=== PATIENT | female | born 1975 | race Two or more races ===

== ENCOUNTER 2020-02-28 13:23 | Emergency (ER) | payer OTHER, SELFPAY ==
[2020-02-28 13:49] VITALS: BP 212/102; PULSE 99; RESP 17; TEMP 37.2; O2SAT 98; BMI 42.5
--- NOTE | 2020-02-28 13:51 | XR_ITS ---
EXAMINATION: XR CHEST CLINICAL INFORMATION: Chest wall pain COMPARISON: Chest radiographs 11/09/2019, 10/27/2018 TECHNIQUE: Portable PA view of the chest was obtained. FINDINGS: The lungs are clear. There is no pneumothorax, airspace consolidation, pleural reaction, or effusion. The heart is normal in size. The hilar and bony structures are unremarkable. XR/XR chest 1V IMPRESSION: Unremarkable examination.
--- NOTE | 2020-02-28 13:51 | ECG_ITS ---
Test Reason : CP Blood Pressure : / mmHG Vent. Rate : 089 BPM Atrial Rate : 089 BPM P-R Int : 164 ms QRS Dur : 090 ms QT Int : 378 ms P-R-T Axes : 018 012 064 degrees QTc Int : 459 ms Normal sinus rhythm Nonspecific T wave abnormality Abnormal ECG When compared with ECG of 09-NOV-2019 10:32, No significant change was found Referred By: South Richardson Electronically Signed By:AUTUMN BAEZA MD
[2020-02-28 14:41] LABS: Basophils Percent Auto 0.4 % (0-2); Eosinophils Absolute Auto 0.1 X10*3/uL (0.0-0.4); Eosinophils Percent Auto 0.8 % (0-4); Hematocrit 40.7 % (37-47); Hemoglobin 12.7 g/dl (12.0-16.0); Imm Gran Abs Auto 0.03 X10*3/uL (0.00-0.03); Imm Gran Pct Auto 0.4 % (0.0-0.4); Lymphocytes Absolute Auto 2.1 X10*3/uL (1.2-4.9); Lymphocytes Percent Auto 29.4 % (20-40); MANUAL DIFF FLAG NO; Mean Corpuscular HGB Conc 31.2 g/dl (31.0-35.0); Mean Corpuscular Hemoglobin 27.8 pg (27.0-33.0); Mean Corpuscular Volume 89.1 fL (80-98); Mean Platelet Volume 11.5 fL (9.4-12.3); Monocytes Absolute Auto 0.5 X10*3/uL (0.1-1.2); Monocytes Percent Auto 7.2 % (2-11); Neutrophils Absolute Auto 4.5 X10*3/uL (2.0-8.3); Neutrophils Percent Auto 61.8 % (45-73); Platelet Count 268 X10*3/uL (160-400); Red Blood Count 4.57 X10*6/uL (4.20-5.50); Red Cell Distribution Width 14.7 % (11.0-16.0); White Blood Count 7.3 X10*3/uL (4.8-10.8)
[2020-02-28 14:48] LABS: Prothrombin Time 12.2 SEC (10.8-13.0)
[2020-02-28 14:51] LABS: Partial Thromboplastin Time 35.5 SEC (24.1-38.0)
[2020-02-28 15:01] LABS: Glucose Urine UA NEG (NEG); Leukocyte Esterase Urine 1+ (NEG); Nitrite Urine NEG (NEG); Specific Gravity - Urine 1.025 (1.005-1.025); Urine Blood 1+ (NEG); Urine Ketones NEG (NEG); Urine Protein 1+ MG/DL (NEG-TRACE)
[2020-02-28 15:02] LABS: Appearance Urine CLOUDY; Color Urine YELLOW
[2020-02-28 15:10] LABS: Bacteria Urine 1+ /LPF; Squamous Epithelial Cell Urine 2+ /LPF
[2020-02-28 15:10] LABS: Troponin-I High Sensitivity < 3.5 ng/L (<3.5-17.0)
[2020-02-28 15:12] LABS: Alanine Aminotransferase 21 U/L (0-31); Albumin Level 4.3 g/dL (3.5-5.0); Alkaline Phosphatase 81 U/L (39-117); Anion Gap 13 (12-20); Aspartate Amino Transferase 16 U/L (5-31); Bilirubin Total 0.5 mg/dL (0.0-1.0); Blood Urea Nitrogen 9 mg/dL (9-16); Calcium 8.7 mg/dL (8.4-10.2); Carbon Dioxide 24 mmol/L (22-29); Chloride 106 mmol/L (96-108); Creatinine Clr Calc Pharmacy 123.6; Estimated Glomerular Filt Rate > 60; Glucose Random 91 mg/dL (60-115); Sodium 139 mmol/L (135-145); Total Protein 7.9 g/dL (6.5-8.0)
--- NOTE | 2020-02-28 16:13 | ED.CHESTPAIN ---
HPI - Chest Pain General Chief Complaint: Chest Pain Stated Complaint: chest pain Time Seen by Provider: 02/28/20 13:51 Source: patient Mode of arrival: ambulatory Limitations: no limitations History of Present Illness HPI narrative: 44-year-old female who denies any significant past medical history reports occasional cough /congestion during sees no allergies otherwise not currently taking any medications presenting today with complaint of states started 2 days ago with some runny nose and body aches family member with similar symptoms- today with bodyaches she also has chest pin that is described as achy that waxes and wanes. no recent travel, she has history of tubal ligation no concern for , no lower extremity swelling or pain. No history of DVT or PE. Hemodynamically stable upon arrival pulse ox of 100%. MD complaint: chest heaviness Onset (ago): day(s) (1) Timing of current episode: episodic Prior episodes: Yes Onset: during rest Pain radiation: none Severity: mild Quality: aching Exacerbating factors: other (cough/ movement ) Context: recent illness Treatment prior to arrival: none Risk Factors Coronary artery disease risk factors: none Related Data On Oral Contraceptives: No Previous Rx's Medication Instructions Recorded naproxen 500 mg PO BID PRN #14 tab 02/28/20 Allergies Allergy/AdvReac Type Severity Reaction Status Date / Time trazodone [TRAZODONE] Allergy Intermediate OVER Verified 02/28/20 13:51 SEDATION, tachycardia, tachycardia Review of Systems Review of Systems: Constitutional: No Weight loss, No Fever, No Chills, No Night Sweats, No Fatigue, No Malaise ENT/Mouth: No Hearing loss, No Ear Pain, No Nasal Congestion, No Sinus Pain, No Hoarseness, No sore throat, No Rhinorrhea, No Swallowing Difficulty Eyes: No Eye Pain, No Swelling, No Redness, No Foreign Body, No Discharge, No Vision Changes Cardiovascular: No Chest Pain, No SOB, No Dyspnea on Exertion, No Orthopnea, No Edema, No Palpitations Respiratory: No Cough, No Sputum, No Wheezing, No Smoke Exposure, No Dyspnea Gastrointestinal: No Nausea, No Vomiting, No Diarrhea, No Constipation, No abdominal Pain, No Hematochezia, No Melena Genitourinary: no irregular bleeding, No Dysuria, No Urinary Frequency, No Hematuria, No Urinary Incontinence, No Urgency, No Flank Pain, No Urinary Flow Changes, No Hesitancy Musculoskeletal: No joint pain, No Myalgias, No Joint Swelling Skin: No Skin Lesions, No rash Neuro: No Weakness, No Numbness, No Paresthesias, No Loss of Consciousness, No Dizziness, No Headache Psych: No Anxiety/Panic, No Depression, No SI/HI/AH/VH, No Social Issues Heme/Lymph: No Bruising, No Bleeding,No Lymphadenopathy Endocrine: No Polyuria, No Polydipsia, No Temperature Intolerance Yes all other systems are reviewed and are negative [facility] Past Medical History Attestation statement: The following information was validated with the patient. Social History Social History Advance Directives: No Advance Directives Information Provided: No Physical Exam Vital Signs: Vital Signs: Last Vital Signs Temp 99.0 F 02/28/20 13:49 Pulse 99 02/28/20 13:49 Resp 17 02/28/20 13:49 BP 212/102 H 02/28/20 13:49 Pulse Ox 98 02/28/20 13:49 Body Mass Index 42.5 Reviewed Const: General: cooperative and healthy appearing; No acute distress or intoxicated appearing Nutritional Appearance: average body habitus Orientation/consciousness: patient oriented x3 HENMT: Head: Yes normal to inspection Ears: hearing grossly normal bilaterally Eyes: General: appearance normal, both eyes and all related structures Visual Leary: normal visual leary by confrontation Neck: Neck: Yes normal visual inspection, No positive Brudzinski's sign, No positive Kernig's sign and No tender Thyroid: Thyroid normal Chest: Chest palpation & inspection: normal inspection of the chest Resp: Effort & Inspection: normal respiratory effort Cardio: Jugular venous distension: no JVD Rhythm: regular rhythm Heart sounds: S1 normal heart sound present and S2 normal heart sound present GI: Inspection: Yes normal to inspection Percussion: Yes normal to percussion Auscultation: normal bowel sounds : General: Yes no CVA tenderness Back/Spine/Pelvis: Back: no CVA tenderness Skin: General skin exam: no rashes or lesions noted Neuro: General: patient oriented x3 Extrem: General: Yes normal to inspection MDM - Chest Pain MDM Narrative Medical decision making narrative: Labs such workup overall unremarkable. COVID-19 pending. Will discharge with clear precaution return follow-up instructions. Stable for discharge. Differential Diagnosis Differential diagnosis: Likely atypical chest pain, costochondritis and chest pain; Unlikely fracture of rib, pneumothorax, stable angina, unstable angina pectoris, st elevation myocardial infarction and biliary colic Medical Records Data Attestation: I reviewed the patient's medical records. Lab Data Attestation: I reviewed the patient's lab results. Result diagrams: 02/28/20 14:34 02/28/20 14:34 Labs: Lab Results 02/28/20 02/28/20 02/28/20 Range/Units 14:34 14:34 14:34 WBC 7.3 (4.8-10.8) X10*3/uL RBC 4.57 (4.20-5.50) X10*6/uL Hgb 12.7 (12.0-16.0) g/dl Hct 40.7 (37-47) % MCV 89.1 (80-98) fL MCH 27.8 (27.0-33.0) pg MCHC 31.2 (31.0-35.0) g/dl RDW 14.7 (11.0-16.0) % Plt Count 268 (160-400) X10*3/uL MPV 11.5 (9.4-12.3) fL Immature Gran % (Auto) 0.4 (0.0-0.4) % Neut % (Auto) 61.8 (45-73) % Lymph % (Auto) 29.4 (20-40) % [place] % (Auto) 7.2 (2-11) % Eos % (Auto) 0.8 (0-4) % Baso % (Auto) 0.4 (0-2) % Lymph # (Auto) 2.1 (1.2-4.9) X10*3/uL [place] # (Auto) 0.5 (0.1-1.2) X10*3/uL Eos # (Auto) 0.1 (0.0-0.4) X10*3/uL Baso # (Auto) 0.0 (0.0-0.2) X10*3/uL Abs Immat Gran (auto) 0.03 (0.00-0.03) X10*3/uL Absolute Neuts (auto) 4.5 (2.0-8.3) X10*3/uL Absolute Nucleated RBC 0.000 (0.0-0.012) X10*3/uL Nucleated RBC % (auto) 0.0 (0.0-0.2) /100WBC PT (10.8-13.0) SEC INR (0.9-1.1) APTT (24.1-38.0) SEC Sodium 139 (135-145) mmol/L Potassium 4.0 (3.3-5.1) mmol/l Chloride 106 (96-108) mmol/L Carbon Dioxide 24 (22-29) mmol/L Anion Gap 13 (12-20) BUN 9 (9-16) mg/dL Creatinine 0.68 (0.5-1.4) mg/dL Estim Creat Clear Calc 123.6 Estimated GFR > 60 Random Glucose 91 (60-115) mg/dL Calcium 8.7 (8.4-10.2) mg/dL Total Bilirubin 0.5 (0.0-1.0) mg/dL AST 16 (5-31) U/L ALT 21 (0-31) U/L Alkaline Phosphatase 81 (39-117) U/L Troponin I High Sens < 3.5 (<3.5-17.0) ng/L Total Protein 7.9 (6.5-8.0) g/dL Albumin 4.3 (3.5-5.0) g/dL Urine Color Urine Appearance Urine pH (5.0-8.0) Ur Specific [place] (1.005-1.025) Urine Protein (NEG-TRACE) MG/DL Urine Glucose (UA) (NEG) MG/DL Urine Ketones (NEG) MG/DL Urine Blood (NEG) Urine Nitrite (NEG) Ur Leukocyte Esterase (NEG) Urine RBC (0) /HPF Urine WBC (0-4) /HPF Ur Squamous Epith Cells /LPF Urine Bacteria /LPF 02/28/20 02/28/20 Range/Units 14:34 14:54 WBC (4.8-10.8) X10*3/uL RBC (4.20-5.50) X10*6/uL Hgb (12.0-16.0) g/dl Hct (37-47) % MCV (80-98) fL MCH (27.0-33.0) pg MCHC (31.0-35.0) g/dl RDW (11.0-16.0) % Plt Count (160-400) X10*3/uL MPV (9.4-12.3) fL Immature Gran % (Auto) (0.0-0.4) % Neut % (Auto) (45-73) % Lymph % (Auto) (20-40) % [place] % (Auto) (2-11) % Eos % (Auto) (0-4) % Baso % (Auto) (0-2) % Lymph # (Auto) (1.2-4.9) X10*3/uL [place] # (Auto) (0.1-1.2) X10*3/uL Eos # (Auto) (0.0-0.4) X10*3/uL Baso # (Auto) (0.0-0.2) X10*3/uL Abs Immat Gran (auto) (0.00-0.03) X10*3/uL Absolute Neuts (auto) (2.0-8.3) X10*3/uL Absolute Nucleated RBC (0.0-0.012) X10*3/uL Nucleated RBC % (auto) (0.0-0.2) /100WBC PT 12.2 (10.8-13.0) SEC INR 1.0 (0.9-1.1) APTT 35.5 (24.1-38.0) SEC Sodium (135-145) mmol/L Potassium (3.3-5.1) mmol/l Chloride (96-108) mmol/L Carbon Dioxide (22-29) mmol/L Anion Gap (12-20) BUN (9-16) mg/dL Creatinine (0.5-1.4) mg/dL Estim Creat Clear Calc Estimated GFR Random Glucose (60-115) mg/dL Calcium (8.4-10.2) mg/dL Total Bilirubin (0.0-1.0) mg/dL AST (5-31) U/L ALT (0-31) U/L Alkaline Phosphatase (39-117) U/L Troponin I High Sens (<3.5-17.0) ng/L Total Protein (6.5-8.0) g/dL Albumin (3.5-5.0) g/dL Urine Color YELLOW Urine Appearance CLOUDY Urine pH 7.0 (5.0-8.0) Ur Specific [place] 1.025 (1.005-1.025) Urine Protein 1+ H (NEG-TRACE) MG/DL Urine Glucose (UA) NEG (NEG) MG/DL Urine Ketones NEG (NEG) MG/DL Urine Blood 1+ H (NEG) Urine Nitrite NEG (NEG) Ur Leukocyte Esterase 1+ H (NEG) Urine RBC 1-4 (0) /HPF Urine WBC 1-4 (0-4) /HPF Ur Squamous Epith Cells 2+ /LPF Urine Bacteria 1+ /LPF Imaging Data Chest x-ray: Radiologist's impression: [address] [id number] XRay Report Signed Patient: Rima Trent#: [id number] : 1975Acct:[id number] Age/Sex: 44 / FADM Date: 02/28/20 Loc: .ED Attending Dr: Ordering Physician: South Richardson NP Date of Service: 02/28/20 Procedure(s): XR chest 1V Accession Number(s): [id number] cc: South Richardson CERTIFIED MEDICATION TECHNICIAN~ EXAMINATION: XR CHEST CLINICAL INFORMATION: Chest wall pain COMPARISON: Chest radiographs 11/09/2019, 10/27/2018 TECHNIQUE: Portable PA view of the chest was obtained. FINDINGS: The lungs are clear. There is no pneumothorax, airspace consolidation, pleural reaction, or effusion. The heart is normal in size. The hilar and bony structures are unremarkable. XR/XR chest 1V IMPRESSION: Unremarkable examination. Dictated By:ANDRES ANDERSON MD Signed By:<Electronically signed by ANDRES ANDERSON MD in OV>02/28/20 1417 DD/ 1351 TD/TT: Foundation Stage Teacher: COLLIER ECG Data ECG #1: Interpretation: normal sinus rhythm Rate 89 Peer interval within normal limits Nonspecific T-wave abnormality when compared to 11/09/2019 no significant change found Discharge Plan Discharge Clinical Impression: Atypical chest pain, Viral syndrome Patient Disposition: Home, Self-Care Instructions: Chest Pain (ED), Viral Syndrome (ED) Prescriptions: New naproxen 500 mg tablet 500 mg PO BID PRN (Reason: pain) Qty: 14 RF: 0 Referrals: Wendy Villalobos MD [Primary Care Provider] - 1 week ( phone visit) Discharge Date/Time: 02/28/20 16:23
== END 2020-02-28 16:23 | disposition home or self-care (01) ==
PROVIDERS: Nurse Practitioner Primary Care; Emergency Provider Internal Medicine; PCP Internal Medicine
DX: B34.9 Viral infection, unspecified (principal); M79.10 Myalgia, unspecified site; R07.9 Chest pain, unspecified; Z79.899 Other long term (current) drug therapy; Z20.828 Contact with and (suspected) exposure to other viral communicable diseases
CPT/HCPCS: 36415; 71045; 80053; 81001; 84484; 85025; 85610; 85730; 87086; 93005; 99283; U0003

== ENCOUNTER 2020-10-03 15:39 | Emergency (ER) | payer OTHER, SELFPAY ==
--- NOTE | ~2020-10-03 | US_ITS ---
EXAMINATION: ULTRASOUND ABDOMEN LIMITED. CHEST X-RAY. CLINICAL INFORMATION: Right upper quadrant pain. COMPARISON: None TECHNIQUE: Limited imaging through the right upper quadrant was performed. Chest one view FINDINGS: LIMITED ABDOMEN ULTRASOUND: The pancreas is homogeneous in echotexture, normal size and echo texture. No focal lesion seen. The liver is slightly increased in echogenicity but no focal lesion or intrahepatic ductal dilatation seen. The gallbladder is contracted due to nonfasting state. No echogenic stones seen. There is nonspecific mild tenderness in the right upper quadrant. CAD measures 0.3 cm and appears unremarkable. Right kidney measures 11.3 cm and appears unremarkable. CHEST X-RAY: The lungs are well-expanded and clear. The heart size and pulmonary vascularity is normal. No gross bony abdomen is seen. US/US abdomen limited IMPRESSION: Slightly contracted nonfasting gallbladder without echogenic stones. Mild tenderness in right upper quadrant. Mild hepatic steatosis without focal lesion. Visualized CBD, right kidney and pancreas is unremarkable. Unremarkable chest exam
[2020-10-03 15:40] VITALS: BP 163/84; PULSE 100; RESP 24; TEMP 36.7; O2SAT 95; BMI 44.2
--- NOTE | 2020-10-03 15:52 | ED_ITS ---
HPI - SOB/Dyspnea General Chief Complaint: Dyspnea Stated Complaint: CP Time Seen by Provider: 10/03/20 15:49 Source: patient Mode of arrival: ambulatory Limitations: no limitations History of Present Illness HPI Narrative: 45 yo female with hx of asthma, depression comes in with c/o upper abdominal pain radiates to chest feels some nausea worse with food denie trouble breathing to me, not pleuritic in nature not on OCPs MD elicited complaint: chest pain Pertinent past history: asthma Onset (ago): day(s) (2) Timing: intermittent Severity: moderate Exacerbating factors: other (worse with eating) Relieving factors: nothing Known history of: asthma Associated symptoms: chest pain, cough and nausea/vomiting Treatment prior to arrival: none Related Data Previous Rx's Medication Instructions Recorded naproxen 500 mg PO BID PRN #14 tab 02/28/20 albuterol sulfate 90 mcg/actuation 2 puff INHALATION Q4-6H PRN 30 09/15/20 aerosol inhaler Days #6.7 g citalopram 20 mg tablet 20 mg PO DAILY 90 Days #90 tab 09/15/20 clonazepam 0.5 mg tablet 0.5 mg PO BID 30 Days #60 tab 09/15/20 fluticasone propionate 50 1 spray INTRANASAL DAILY 30 Days 09/15/20 mcg/actuation nasal #16 g spray,suspension famotidine [Pepcid] 20 mg PO DAILY PRN #30 tab 10/03/20 ondansetron 4 mg PO Q8H PRN #20 tab 10/03/20 Allergies Allergy/AdvReac Type Severity Reaction Status Date / Time trazodone [TRAZODONE] Allergy Intermediate OVER Verified 02/28/20 13:51 SEDATION, tachycardia, tachycardia Review of Systems Review of Systems: Constitutional : No Weight loss, No Fever, No Chills ENT/Mouth : No sore throat, No Rhinorrhea Eyes: No Swelling, No Redness Cardiovascular : pos Chest Pain, No SOB, NoEdema Respiratory : pos Cough, No Sputum, No Wheezing Gastrointestinal : Positive Nausea,no Vomiting, no Diarrhea, positive abdominal Pain, No Hematochezia, No Melena Genitourinary : No Dysuria, No Urinary Frequency, No Hematuria, No Urgency Musculoskeletal : No joint pain, No Myalgias, No Joint Swelling Skin : No Skin Lesions, No rash Neuro : No Weakness, No Numbness, No Dizziness, No Headache Psych : No Anxiety/Panic, No Depression Heme/Lymph: No Bruising, No Lymphadenopathy Endocrine : No Polyuria, No Polydipsia All other systems reviewed and are negative. [facility] Past Medical History Attestation statement: The following information was validated with the patient. Medical History Anxiety Asthma Social History Social History (Updated 10/03/20 @ 16:14 by Sophie Parra DO) Alcohol intake: never Patient Tobacco Use Status: Never used Tobacco Advance Directives: No Advance Directives Information Provided: No Patient : No Physical Exam Vital Signs: Vital Signs: Last Vital Signs Temp 98.8 F 10/03/20 16:05 Pulse 99 10/03/20 16:05 Resp 20 10/03/20 16:05 BP 148/101 H 10/03/20 16:05 Pulse Ox 96 10/03/20 16:05 Body Mass Index 44.2 Appearance: Alert. Oriented X3. No acute distress. Eyes: Pupils equal, round and reactive to light. ENT: Pharynx normal. Neck: Normal inspection. Neck supple. CVS: Normal heart rate and rhythm. Pulses normal. Respiratory: No respiratory distress. Breath sounds normal. Abdomen: Soft and mild epigastric ttp with + murphys Skin: Skin warm and dry. Normal skin color. Normal skin turgor. Extremities: No lower extremity edema. No calf ttp Neuro: Oriented X 3. No motor deficit. No sensory deficit. Course Course Course Narrative: feels much better, US and CXR negative at this time, trop negative stable for DC MDM - SOB/Dyspnea MDM Narrative Medical decision making narrative: 45 yo female with upper abdominal pain that radiates to chest with some nausea worse with eating - PERC negative, seems atypical for ACS will need labs, US of GB, EKG, troponin, IV medications, dispo per results and findings, seems to come from GI source Lab Data Result diagrams: 10/03/20 16:41 10/03/20 16:41 Labs: Lab Results 10/03/20 10/03/20 10/03/20 Range/Units 16:41 16:41 16:41 WBC 8.2 (4.8-10.8) X10*3/uL RBC 4.59 (4.20-5.50) X10*6/uL Hgb 12.6 (12.0-16.0) g/dl Hct 39.4 (37-47) % MCV 85.8 (80-98) fL MCH 27.5 (27.0-33.0) pg MCHC 32.0 (31.0-35.0) g/dl RDW 15.5 (11.0-16.0) % Plt Count 289 (160-400) X10*3/uL MPV 11.9 (9.4-12.3) fL Immature Gran % (Auto) 0.4 (0.0-0.4) % Neut % (Auto) 55.9 (45-73) % Lymph % (Auto) 30.9 (20-40) % [place] % (Auto) 10.9 (2-11) % Eos % (Auto) 1.5 (0-4) % Baso % (Auto) 0.4 (0-2) % Lymph # (Auto) 2.5 (1.2-4.9) X10*3/uL [place] # (Auto) 0.9 (0.1-1.2) X10*3/uL Eos # (Auto) 0.1 (0.0-0.4) X10*3/uL Baso # (Auto) 0.0 (0.0-0.2) X10*3/uL Abs Immat Gran (auto) 0.03 (0.00-0.03) X10*3/uL Absolute Neuts (auto) 4.6 (2.0-8.3) X10*3/uL Absolute Nucleated RBC 0.000 (0.0-0.012) X10*3/uL Nucleated RBC % (auto) 0.0 (0.0-0.2) /100WBC Sodium 141 (135-145) mmol/L Potassium 4.1 (3.3-5.1) mmol/L Chloride 104 (96-108) mmol/L Carbon Dioxide 29 (22-29) mmol/L Anion Gap 12 (12-20) BUN 11 (9-16) mg/dL Creatinine 0.80 (0.5-1.4) mg/dL Estim Creat Clear Calc 106.5 Estimated GFR > 60 Random Glucose 90 (60-115) mg/dL Calcium 9.8 D (8.4-10.2) mg/dL Magnesium 2.1 (1.6-2.6) mg/dL Total Bilirubin 0.3 (0.0-1.0) mg/dL Direct Bilirubin < 0.2 (0.0-0.5) mg/dL AST 16 (5-31) U/L ALT 15 (0-31) U/L Alkaline Phosphatase 92 (39-117) U/L Troponin I High Sens (<3.5-17.0) ng/L Total Protein 7.8 (6.5-8.0) g/dL Albumin 4.1 (3.5-5.0) g/dL Lipase 18 (8-78) U/L COVID-19 (LYNN) Negative (Negative) COVID-19 Clin Com See Note 10/03/20 Range/Units 16:41 WBC (4.8-10.8) X10*3/uL RBC (4.20-5.50) X10*6/uL Hgb (12.0-16.0) g/dl Hct (37-47) % MCV (80-98) fL MCH (27.0-33.0) pg MCHC (31.0-35.0) g/dl RDW (11.0-16.0) % Plt Count (160-400) X10*3/uL MPV (9.4-12.3) fL Immature Gran % (Auto) (0.0-0.4) % Neut % (Auto) (45-73) % Lymph % (Auto) (20-40) % [place] % (Auto) (2-11) % Eos % (Auto) (0-4) % Baso % (Auto) (0-2) % Lymph # (Auto) (1.2-4.9) X10*3/uL [place] # (Auto) (0.1-1.2) X10*3/uL Eos # (Auto) (0.0-0.4) X10*3/uL Baso # (Auto) (0.0-0.2) X10*3/uL Abs Immat Gran (auto) (0.00-0.03) X10*3/uL Absolute Neuts (auto) (2.0-8.3) X10*3/uL Absolute Nucleated RBC (0.0-0.012) X10*3/uL Nucleated RBC % (auto) (0.0-0.2) /100WBC Sodium (135-145) mmol/L Potassium (3.3-5.1) mmol/L Chloride (96-108) mmol/L Carbon Dioxide (22-29) mmol/L Anion Gap (12-20) BUN (9-16) mg/dL Creatinine (0.5-1.4) mg/dL Estim Creat Clear Calc Estimated GFR Random Glucose (60-115) mg/dL Calcium (8.4-10.2) mg/dL Magnesium (1.6-2.6) mg/dL Total Bilirubin (0.0-1.0) mg/dL Direct Bilirubin (0.0-0.5) mg/dL AST (5-31) U/L ALT (0-31) U/L Alkaline Phosphatase (39-117) U/L Troponin I High Sens < 3.5 (<3.5-17.0) ng/L Total Protein (6.5-8.0) g/dL Albumin (3.5-5.0) g/dL Lipase (8-78) U/L COVID-19 (LYNN) (Negative) COVID-19 Clin Com ECG Data Attestation: I personally reviewed and interpreted this ECG as follows: ECG interpretation date: 10/03/20 ECG interpretation time: 16:33 Interpretation: Rate: 98 Rhythm: NSR [place]: normal Normal P waves. Normal PRACHI. Normal QRS complex. ST T wave : inverted aVL no LIAN qTC: normal prior studies: no acute ischemia unchanged feb 2020 The study has been interpreted contemporaneously by me. . Discharge Plan Discharge Clinical Impression: Abdominal pain, Atypical chest pain Patient Disposition: Home, Self-Care Instructions: Chest Pain (ED), Abdominal Pain (ED) Additional Instructions: return to ED for any worsening symptoms or concerns Prescriptions: New famotidine [Pepcid] 20 mg tablet 20 mg PO DAILY PRN (Reason: abdominal discomfort) Qty: 30 RF: 0 ondansetron 4 mg tablet,disintegrating 4 mg PO Q8H PRN (Reason: nausea and vomiting) Qty: 20 RF: 0 No Action citalopram 20 mg tablet 20 mg PO DAILY 90 Days Qty: 90 RF: 2 clonazepam 0.5 mg tablet 0.5 mg PO BID 30 Days Qty: 60 RF: 0 fluticasone propionate [Allergy Relief (fluticasone)] 50 mcg/actuation spray,suspension 1 spray intranasal DAILY 30 Days Qty: 16 RF: 6 albuterol sulfate [Ventolin HFA] 90 mcg/actuation HFA aerosol inhaler 2 puff inhalation Q4-6H PRN (Reason: bronchospasm) 30 Days Qty: 6.7 RF: 1 naproxen 500 mg tablet 500 mg PO BID PRN (Reason: pain) Qty: 14 RF: 0 Referrals: Wendy Villalobos MD [Primary Care Provider] - 2 days (if not better)
--- NOTE | 2020-10-03 15:56 | ECG_ITS ---
Test Reason : CP Blood Pressure : / mmHG Vent. Rate : 098 BPM Atrial Rate : 098 BPM P-R Int : 144 ms QRS Dur : 088 ms QT Int : 360 ms P-R-T Axes : 033 010 077 degrees QTc Int : 459 ms Normal sinus rhythm Nonspecific T wave abnormality Abnormal ECG When compared with ECG of 28-FEB-2020 14:24, No significant change was found Referred By: Sophie Parra Electronically Signed By:Yao Auguste
[2020-10-03 16:05] VITALS: BP 148/101; PULSE 99; RESP 20; TEMP 37.1; O2SAT 96
[2020-10-03] MEDS: Ketorolac Tromethamine 30 MG/ML VIAL IVPUSH (16:46)
[2020-10-03] MEDS: 0.9 % Sodium Chloride 1,000 ML 999 ML IVCONT (16:46)
[2020-10-03 16:48] LABS: Basophils Percent Auto 0.4 % (0-2); Eosinophils Absolute Auto 0.1 X10*3/uL (0.0-0.4); Eosinophils Percent Auto 1.5 % (0-4); Hematocrit 39.4 % (37-47); Hemoglobin 12.6 g/dl (12.0-16.0); Imm Gran Abs Auto 0.03 X10*3/uL (0.00-0.03); Imm Gran Pct Auto 0.4 % (0.0-0.4); Lymphocytes Absolute Auto 2.5 X10*3/uL (1.2-4.9); Lymphocytes Percent Auto 30.9 % (20-40); MANUAL DIFF FLAG NO; Mean Corpuscular Hemoglobin 27.5 pg (27.0-33.0); Mean Corpuscular Volume 85.8 fL (80-98); Mean Platelet Volume 11.9 fL (9.4-12.3); Monocytes Absolute Auto 0.9 X10*3/uL (0.1-1.2); Monocytes Percent Auto 10.9 % (2-11); Neutrophils Absolute Auto 4.6 X10*3/uL (2.0-8.3); Neutrophils Percent Auto 55.9 % (45-73); Platelet Count 289 X10*3/uL (160-400); Red Blood Count 4.59 X10*6/uL (4.20-5.50); Red Cell Distribution Width 15.5 % (11.0-16.0); White Blood Count 8.2 X10*3/uL (4.8-10.8)
[2020-10-03 17:02] LABS: COVID-19 Test Negative (Negative); IDNOW Serial# 9DD0AD1C
[2020-10-03 17:19] LABS: Alanine Aminotransferase 15 U/L (0-31); Albumin Level 4.1 g/dL (3.5-5.0); Alkaline Phosphatase 92 U/L (39-117); Anion Gap 12 (12-20); Aspartate Amino Transferase 16 U/L (5-31); Bilirubin Direct < 0.2 mg/dL (0.0-0.5); Blood Urea Nitrogen 11 mg/dL (9-16); Calcium 9.8 mg/dL (8.4-10.2); Carbon Dioxide 29 mmol/L (22-29); Chloride 104 mmol/L (96-108); Creatinine Clr Calc Pharmacy 106.5; Estimated Glomerular Filt Rate > 60; Glucose Random 90 mg/dL (60-115); Lipase 18 U/L (8-78); Magnesium 2.1 mg/dL (1.6-2.6); Potassium 4.1 mmol/L (3.3-5.1); Sodium 141 mmol/L (135-145); Total Protein 7.8 g/dL (6.5-8.0); Troponin-I High Sensitivity < 3.5 ng/L (<3.5-17.0)
[2020-10-03 17:27] LABS: Bilirubin Total 0.3 mg/dL (0.0-1.0)
== END 2020-10-03 18:01 | disposition home or self-care (01) ==
PROVIDERS: Emergency Provider Emergency Medicine; PCP Internal Medicine
DX: R07.89 Other chest pain (principal); R10.10 Upper abdominal pain, unspecified; J45.909 Unspecified asthma, uncomplicated; Z79.899 Other long term (current) drug therapy; Z20.822 Contact with and (suspected) exposure to COVID-19
CPT/HCPCS: 36415; 71045; 76705; 80048; 80076; 83690; 83735; 84484; 85025; 87635; 93005; 96361; 96374; 96375; 99284; 99285; J1885

== ENCOUNTER 2021-01-06 10:56 | Outpatient (REF) | payer OTHER, SELFPAY ==
[2021-01-06 14:00] LABS: Hematocrit 43.1 % (37-47); Hemoglobin 13.3 g/dl (12.0-16.0); Mean Corpuscular HGB Conc 30.9 g/dl (31.0-35.0); Mean Corpuscular Hemoglobin 27.4 pg (27.0-33.0); Mean Corpuscular Volume 88.7 fL (80-98); Mean Platelet Volume 12.7 fL (9.4-12.3); Platelet Count 275 X10*3/uL (160-400); Red Blood Count 4.86 X10*6/uL (4.20-5.50); Red Cell Distribution Width 16.9 % (11.0-16.0)
== END 2021-01-06 10:57 | disposition home or self-care (01) ==
LOC: HO.WFDLDS 10:56
PROVIDERS: Visit Provider Hospitalist
DX: Z00.00 Encounter for general adult medical examination without abnormal findings (principal)
CPT/HCPCS: 36415; 85027

== ENCOUNTER 2021-01-25 09:12 | Outpatient (REF) | payer OTHER, SELFPAY ==
[2021-01-25 11:40] LABS: Hematocrit 41.7 % (37-47); Hemoglobin 13.1 g/dl (12.0-16.0); Mean Corpuscular HGB Conc 31.4 g/dl (31.0-35.0); Mean Corpuscular Hemoglobin 27.8 pg (27.0-33.0); Mean Corpuscular Volume 88.5 fL (80-98); Mean Platelet Volume 12.1 fL (9.4-12.3); Platelet Count 301 X10*3/uL (160-400); Red Blood Count 4.71 X10*6/uL (4.20-5.50); Red Cell Distribution Width 16.5 % (11.0-16.0); White Blood Count 11.9 X10*3/uL (4.8-10.8)
[2021-01-25 12:02] LABS: Alanine Aminotransferase 20 U/L (0-31); Albumin Level 4.1 g/dL (3.5-5.0); Alkaline Phosphatase 84 U/L (39-117); Anion Gap 13 (12-20); Aspartate Amino Transferase 17 U/L (5-31); Bilirubin Total 0.3 mg/dL (0.0-1.0); Blood Urea Nitrogen 10 mg/dL (9-16); Calcium 9.6 mg/dL (8.4-10.2); Carbon Dioxide 27 mmol/L (22-29); Chloride 105 mmol/L (96-108); Cholesterol 204 mg/dL; Estimated Glomerular Filt Rate > 60; Glucose Fasting 103 mg/dL (60-99); HDL Cholesterol 45 mg/dL; LDL Cholesterol Calculated 119 mg/dl; Potassium 4.4 mmol/L (3.3-5.1); Sodium 141 mmol/L (135-145); Triglycerides 201 mg/dL
[2021-01-25 12:16] LABS: TSH reflex Free T4 4.15 uIU/mL (0.32-4.0)
[2021-01-25 12:50] LABS: Free T4 (Free Thyroxine) 0.84 ng/dL (0.71-1.85)
== END 2021-01-25 09:13 | disposition home or self-care (01) ==
LOC: HO.WFDLDS 09:12
PROVIDERS: Visit Provider Hospitalist
DX: Z00.00 Encounter for general adult medical examination without abnormal findings (principal)
CPT/HCPCS: 36415; 80053; 80061; 84439; 84443; 85027

== ENCOUNTER 2021-02-03 06:28 | Emergency (ER) | payer OTHER, SELFPAY ==
--- NOTE | 2021-02-03 | ECG_ITS ---
Test Reason : chest pressure Blood Pressure : / mmHG Vent. Rate : 100 BPM Atrial Rate : 100 BPM P-R Int : 146 ms QRS Dur : 088 ms QT Int : 344 ms P-R-T Axes : 024 013 045 degrees QTc Int : 443 ms Normal sinus rhythm Nonspecific ST and T wave abnormality Abnormal ECG When compared with ECG of 03-OCT-2020 16:31, No significant change was found Referred By: Generic ED Physician Electronically Signed By:AUTUMN BAEZA MD
--- NOTE | ~2021-02-03 | XR_ITS ---
EXAMINATION: XR CHEST CLINICAL INFORMATION: Chest pain. COMPARISON: Chest done on 10/03/2020. TECHNIQUE: Frontal view of the chest was obtained. FINDINGS: Mild pulmonary venous congestion is present. Both lungs are clear. The cardiomediastinal silhouette is within normal limits. No evidence of any pleural effusion or pneumothorax. XR/XR chest 1V IMPRESSION: Mild pulmonary venous congestion. No significant change since prior study.
--- NOTE | ~2021-02-03 | XR_ITS ---
EXAMINATION: XR CERVICAL SPINE CLINICAL INFORMATION: Pain COMPARISON: MRI 03/10/2018 TECHNIQUE: 3 views of the cervical spine were obtained. FINDINGS: Straightening of cervical lordosis with slight kyphosis, possibly due to muscular spasm, positioning or immobilization collar. Cervical vertebral bodies are normal in height and alignment. Degenerative disc disease, C4-5 and C5-6. Small anterior degenerative osteophytes and uncovertebral spurring also at these levels. No prevertebral soft tissue swelling. Atlantodens intervals within normal limits. The lateral masses of C1 and C2 are well aligned. The dens process is intact. XR/XR cervical spine 3V IMPRESSION: Degenerative changes without evidence of acute cervical spinal injury.
[2021-02-03 06:37] VITALS: BP 148/101; PULSE 104; RESP 18; TEMP 37.2; O2SAT 96; BMI 44.6
[2021-02-03 06:52] VITALS: BP 159/97; PULSE 106; RESP 18; O2SAT 97
[2021-02-03 07:07] LABS: MANUAL DIFF FLAG NO
[2021-02-03 07:09] LABS: Basophils Percent Auto 0.5 % (0-2); Eosinophils Absolute Auto 0.1 X10*3/uL (0.0-0.4); Eosinophils Percent Auto 1.2 % (0-4); Hemoglobin 12.6 g/dl (12.0-16.0); Imm Gran Abs Auto 0.06 X10*3/uL (0.00-0.03); Imm Gran Pct Auto 0.7 % (0.0-0.4); Lymphocytes Absolute Auto 2.8 X10*3/uL (1.2-4.9); Lymphocytes Percent Auto 31.8 % (20-40); Mean Corpuscular HGB Conc 31.5 g/dl (31.0-35.0); Mean Corpuscular Hemoglobin 27.8 pg (27.0-33.0); Mean Corpuscular Volume 88.1 fL (80-98); Mean Platelet Volume 11.7 fL (9.4-12.3); Monocytes Absolute Auto 0.9 X10*3/uL (0.1-1.2); Monocytes Percent Auto 9.9 % (2-11); Neutrophils Percent Auto 55.9 % (45-73); Platelet Count 254 X10*3/uL (160-400); Red Blood Count 4.54 X10*6/uL (4.20-5.50); Red Cell Distribution Width 16.5 % (11.0-16.0); White Blood Count 8.9 X10*3/uL (4.8-10.8)
[2021-02-03] MEDS: 0.9 % Sodium Chloride 1,000 ML 999 ML IVCONT (07:09)
[2021-02-03 07:10] VITALS: PULSE 97; RESP 18
[2021-02-03 07:22] LABS: COVID-19 Test Negative (Negative)
[2021-02-03 07:23] LABS: Alanine Aminotransferase 19 U/L (0-31); Albumin Level 4.1 g/dL (3.5-5.0); Alkaline Phosphatase 89 U/L (39-117); Anion Gap 14 (12-20); Aspartate Amino Transferase 17 U/L (5-31); Bilirubin Direct < 0.2 mg/dL (0.0-0.5); Bilirubin Total 0.3 mg/dL (0.0-1.0); Blood Urea Nitrogen 9 mg/dL (9-16); Calcium 9.3 mg/dL (8.4-10.2); Carbon Dioxide 25 mmol/L (22-29); Chloride 105 mmol/L (96-108); Creatinine Clr Calc Pharmacy 117.2; Estimated Glomerular Filt Rate > 60; Glucose Random 121 mg/dL (60-115); Lipase 22 U/L (8-78); Potassium 3.9 mmol/L (3.3-5.1); Sodium 140 mmol/L (135-145); Total Protein 7.8 g/dL (6.5-8.0)
[2021-02-03 07:27] LABS: Troponin-I High Sensitivity < 3.5 ng/L (<3.5-17.0)
--- NOTE | 2021-02-03 07:28 | ED.GENADULT ---
HPI - General Adult General Chief complaint: Dizziness Stated complaint: Chest pressure/Dizziness Time Seen by Provider: 02/03/21 06:57 Source: patient Mode of arrival: ambulatory Limitations: no limitations History of Present Illness HPI narrative: 45-year-old female came in for evaluation of neck pain and dizziness. Patient been having chronic neck pain due to a known history of arthritis in the neck, patient also has been feeling dizzy especially when she changed her position from sitting or laying down to standing, patient also get episodes of chest pain that lasts for 2 minutes only when she feels dizzy when she stand up, pain is localized to the mid chest, no radiation, describes the pain as pressure on the chest, changing position and feeling dizzy triggers the pain, pain goes away if she sits down. No other associated symptoms. No recent travel, no lower extremity swelling or tenderness, no history of PE. No headache, no dizziness, no blurry vision. Related Data Home Medications Medication Instructions Recorded Confirmed amitriptyline 50 mg tablet 50 mg PO DAILY 10/19/20 01/06/21 sumatriptan succinate 50 mg tablet 50 mg PO DAILY 10/19/20 01/06/21 Previous Rx's Medication Instructions Recorded naproxen 500 mg tablet 500 mg PO BID PRN #14 tab 02/28/20 albuterol sulfate 90 mcg/actuation 2 puff INHALATION Q4-6H PRN 30 09/15/20 aerosol inhaler (Ventolin HFA) Days #6.7 g citalopram 20 mg tablet 20 mg PO DAILY 90 Days #90 tab 09/15/20 famotidine 20 mg tablet (Pepcid) 20 mg PO DAILY PRN #30 tab 10/03/20 clonazepam 0.5 mg tablet 0.5 mg PO DAILY 30 Days #30 tab 01/06/21 cetirizine 10 mg tablet (All Day 10 mg PO DAILY PRN #90 tab 01/25/21 Allergy (cetirizine)) fluticasone propionate 50 1 spray INTRANASAL DAILY 30 Days 01/25/21 mcg/actuation nasal #16 g spray,suspension (Allergy Relief (fluticasone)) ondansetron 4 mg disintegrating 4 mg PO Q8H PRN #20 tab 01/25/21 tablet Allergies Allergy/AdvReac Type Severity Reaction Status Date / Time trazodone [TRAZODONE] Allergy Intermediate OVER Verified 01/25/21 08:36 SEDATION, tachycardia, tachycardia Review of Systems Review of Systems: All other systems are reviewed and are negative Constitutional: Reports as per HPI and Reports no additional constitutional complaints Eyes: Reports as per HPI and Reports no additional eye complaints Reports system reviewed and no additional complaints, except as documented Cardiovascular: Reports as per HPI and Reports no additional cardiovascular complaints Respiratory: Reports as per HPI and Reports no additional respiratory complaints Gastrointestinal: Reports as per HPI and Reports no additional gastrointestinal complaints Genitourinary: Reports no additional female genitourinary complaints Musculoskeletal: Reports no additional musculoskeletal complaints Skin/Breast: Reports system reviewed and no additional complaints, except as docu Psychiatric: Reports no additional psychiatric complaints Endocrine: Reports no additional endocrine complaints Hematologic/Lymphatic: Reports no additional hematologic/lymphatic complaints Allergic/Immunologic: Reports no additional allergic/immunologic complaints Reports system reviewed and no additional complaints, except as documented and Reports Abnormal speech present [facility] Past Medical History Medical History Anxiety Asthma Surgical History H/O tubal ligation Family History Family History Mother No problems noted. Father No problems noted. Social History Social History Housing: House Alcohol intake: never Patient Tobacco Use Status: Never used Tobacco e-Cigarette/Vaping Use: Never Used Second Hand Smoke Exposure: No Advance Directives: No Patient : No service: No Current occupational status: employed Physical Exam Vital Signs: Vital Signs: Last Vital Signs Temp 98.9 F 02/03/21 06:37 Pulse 77 02/03/21 10:12 Resp 17 02/03/21 10:12 BP 142/99 H 02/03/21 10:12 Pulse Ox 98 02/03/21 10:12 Body Mass Index 44.6 Vital signs have been reviewed as appeared to be correct. Blood pressure normal. Heart rate normal. Respiration rate normal. Temperature normal. Oxygen saturation normal. Appearance: Alert. Oriented X3. No acute distress. Head: Normal external exam. Normocephalic. Atraumatic. No Sen signs noted. No raccoon eyes noted Eyes: PERRLA. EOMI. Conjunctiva and sclera normal. Eyelids normal. ENT: TM's Normal. Pharynx normal. Uvula midline. Moist mucous membranes. No trismus noted. No drooling noted. No muffled voice noted. Neck: Normal inspection. Neck supple. FROM. No adenopathy. Thyroid Normal. No meningeal signs. No neck mass noted. CVS: Normal heart rate and rhythm. Heart sound normal. No murmurs noted. Pulses normal throughout. Respiratory: No respiratory distress. Painless inspiration. Breath sounds normal. No wheezes/rales/rhonchi noted. Chest nontender. No accessory muscle usage noted or decreased air movement noted. Abdomen: Soft and nontender. Bowel sounds normal in all 4 quadrants. No distention noted. No organomegaly noted. No visible injury noted. Back: No CVA tenderness. Full range of motion noted. Skin: Skin warm and dry. Normal skin color. Normal skin turgor. No rashes/lesions/lacerations noted. Extremities: No lower extremity edema. Extremities exhibit normal range of motion. Extremities nontender. Neuro: Oriented X 3. Cranial nerve exam: II-XII are grossly intact No motor deficit. No sensory deficit. Reflexes normal. NIH Stroke Scale Internal: Initial- Upon Arrival Level of Consciousness: Alert Level of Consciousness Questions: Answers both questions correctly Level of Consciousness Commands: Performs both tasks correctly Best Gaze: Normal Visual: No visual loss Facial Palsy: Normal Motor Arm (Right): No drift Motor Arm (Left): No drift Motor Leg (Right): No drift Motor Leg (Left): No drift Limb Ataxia: Absent Sensory: Normal Best Language: No aphasia Dysarthia: Normal Extinction and Inattention: No abnormality Score: 0 Course Course Course Narrative: Assessment and plan. 45-year-old female with neck pain radiating down to both side of shoulder, came in with feeling dizzy when she stand up or change position, some intermittent chest pain. Physical exam is consistent with cervical radiculopathy causing patient's dizziness, and assessed pain is noncardiac pain. Medical Decision Making Medical Records Medical records reviewed: Yes I reviewed the patient's medical records. Lab Data Lab results reviewed: Yes I reviewed the patient's lab results. Result diagrams: 02/03/21 07:01 02/03/21 07:01 Labs: Lab Results 02/03/21 02/03/21 02/03/21 Range/Units 07:01 07:01 07:01 WBC 8.9 (4.8-10.8) X10*3/uL RBC 4.54 (4.20-5.50) X10*6/uL Hgb 12.6 (12.0-16.0) g/dl Hct 40.0 (37-47) % MCV 88.1 (80-98) fL MCH 27.8 (27.0-33.0) pg MCHC 31.5 (31.0-35.0) g/dl RDW 16.5 H (11.0-16.0) % Plt Count 254 (160-400) X10*3/uL MPV 11.7 (9.4-12.3) fL Immature Gran % (Auto) 0.7 H (0.0-0.4) % Neut % (Auto) 55.9 (45-73) % Lymph % (Auto) 31.8 (20-40) % Mckenzie % (Auto) 9.9 (2-11) % Eos % (Auto) 1.2 (0-4) % Baso % (Auto) 0.5 (0-2) % Lymph # (Auto) 2.8 (1.2-4.9) X10*3/uL Mckenzie # (Auto) 0.9 (0.1-1.2) X10*3/uL Eos # (Auto) 0.1 (0.0-0.4) X10*3/uL Baso # (Auto) 0.0 (0.0-0.2) X10*3/uL Abs Immat Gran (auto) 0.06 H (0.00-0.03) X10*3/uL Absolute Neuts (auto) 5.0 (2.0-8.3) X10*3/uL Absolute Nucleated RBC 0.000 (0.0-0.012) X10*3/uL Nucleated RBC % (auto) 0.0 (0.0-0.2) /100WBC Sodium 140 (135-145) mmol/L Potassium 3.9 (3.3-5.1) mmol/L Chloride 105 (96-108) mmol/L Carbon Dioxide 25 (22-29) mmol/L Anion Gap 14 (12-20) BUN 9 (9-16) mg/dL Creatinine 0.73 (0.5-1.4) mg/dL Estim Creat Clear Calc 117.2 Estimated GFR > 60 Random Glucose 121 H (60-115) mg/dL Calcium 9.3 (8.4-10.2) mg/dL Total Bilirubin 0.3 (0.0-1.0) mg/dL Direct Bilirubin < 0.2 (0.0-0.5) mg/dL AST 17 (5-31) U/L ALT 19 (0-31) U/L Alkaline Phosphatase 89 (39-117) U/L Troponin I High Sens < 3.5 (<3.5-17.0) ng/L Total Protein 7.8 (6.5-8.0) g/dL Albumin 4.1 (3.5-5.0) g/dL Lipase 22 (8-78) U/L COVID-19 (LYNN) (Negative) COVID-19 Clin Com 02/03/21 Range/Units 07:01 WBC (4.8-10.8) X10*3/uL RBC (4.20-5.50) X10*6/uL Hgb (12.0-16.0) g/dl Hct (37-47) % MCV (80-98) fL MCH (27.0-33.0) pg MCHC (31.0-35.0) g/dl RDW (11.0-16.0) % Plt Count (160-400) X10*3/uL MPV (9.4-12.3) fL Immature Gran % (Auto) (0.0-0.4) % Neut % (Auto) (45-73) % Lymph % (Auto) (20-40) % Mckenzie % (Auto) (2-11) % Eos % (Auto) (0-4) % Baso % (Auto) (0-2) % Lymph # (Auto) (1.2-4.9) X10*3/uL Mckenzie # (Auto) (0.1-1.2) X10*3/uL Eos # (Auto) (0.0-0.4) X10*3/uL Baso # (Auto) (0.0-0.2) X10*3/uL Abs Immat Gran (auto) (0.00-0.03) X10*3/uL Absolute Neuts (auto) (2.0-8.3) X10*3/uL Absolute Nucleated RBC (0.0-0.012) X10*3/uL Nucleated RBC % (auto) (0.0-0.2) /100WBC Sodium (135-145) mmol/L Potassium (3.3-5.1) mmol/L Chloride (96-108) mmol/L Carbon Dioxide (22-29) mmol/L Anion Gap (12-20) BUN (9-16) mg/dL Creatinine (0.5-1.4) mg/dL Estim Creat Clear Calc Estimated GFR Random Glucose (60-115) mg/dL Calcium (8.4-10.2) mg/dL Total Bilirubin (0.0-1.0) mg/dL Direct Bilirubin (0.0-0.5) mg/dL AST (5-31) U/L ALT (0-31) U/L Alkaline Phosphatase (39-117) U/L Troponin I High Sens (<3.5-17.0) ng/L Total Protein (6.5-8.0) g/dL Albumin (3.5-5.0) g/dL Lipase (8-78) U/L COVID-19 (LYNN) Negative (Negative) COVID-19 Clin Com See Note Imaging Data Cervical spine x-ray: Radiologist's impression: Degenerative changes without evidence of acute cervical spinal injury. Chest x-ray: Radiologist's impression: Mild pulmonary venous congestion no significant change since prior study. ECG Data Attestation: I personally reviewed and interpreted this ECG as follows: Interpretation: Normal sinus rhythm at 100 beats per minutes, normal intervals, normal axis deviation. Discharge Plan Discharge Clinical Impression: Cervical radiculopathy, Chest pain Patient Disposition: Home, Self-Care Instructions: Cervical Radiculopathy (ED) Prescriptions: No Action citalopram 20 mg tablet 20 mg PO DAILY 90 Days Qty: 90 RF: 2 albuterol sulfate [Ventolin HFA] 90 mcg/actuation HFA aerosol inhaler 2 puff inhalation Q4-6H PRN (Reason: bronchospasm) 30 Days Qty: 6.7 RF: 1 naproxen 500 mg tablet 500 mg PO BID PRN (Reason: pain) Qty: 14 RF: 0 famotidine [Pepcid] 20 mg tablet 20 mg PO DAILY PRN (Reason: abdominal discomfort) Qty: 30 RF: 0 sumatriptan succinate 50 mg tablet 50 mg PO DAILY RF: 0 amitriptyline 50 mg tablet 50 mg PO DAILY RF: 0 clonazepam 0.5 mg tablet 0.5 mg PO DAILY 30 Days Qty: 30 RF: 0 cetirizine [All Day Allergy (cetirizine)] 10 mg tablet 10 mg PO DAILY PRN (Reason: allergy symptoms) Qty: 90 RF: 1 fluticasone propionate [Allergy Relief (fluticasone)] 50 mcg/actuation spray,suspension 1 spray intranasal DAILY 30 Days Qty: 16 RF: 6 ondansetron 4 mg tablet,disintegrating 4 mg PO Q8H PRN (Reason: nausea and vomiting) Qty: 20 RF: 1 Referrals: Masha Sanchez [facility] ASSIST[facility] [Primary Care Provider] - 2 days Interventions: ED Discharge Assessment Last Done: 02/03/21 10:13 Discharge Date/Time: 02/03/21 10:14
[2021-02-03 09:06] VITALS: BP 130/80; PULSE 95; RESP 14; O2SAT 97
[2021-02-03 10:12] VITALS: BP 142/99; PULSE 77; RESP 17; O2SAT 98
== END 2021-02-03 10:14 | disposition home or self-care (01) ==
PROVIDERS: Emergency Provider Emergency Medicine; PCP Hospitalist
DX: R07.9 Chest pain, unspecified (principal); M54.12 Radiculopathy, cervical region; J45.909 Unspecified asthma, uncomplicated; Z20.822 Contact with and (suspected) exposure to COVID-19
CPT/HCPCS: 36415; 71045; 72040; 80048; 80076; 83690; 84484; 85025; 87635; 93005; 96360; 99284

== ENCOUNTER → 2021-03-01 08:58 | Outpatient (REF) | payer OTHER, SELFPAY | LOC: HO.SL 08:58 | PROVIDERS: PCP Hospitalist; Visit Provider Hospitalist | DX: R40.0 Somnolence (principal) | CPT/HCPCS: 95806 ==

== ENCOUNTER → 2021-03-16 09:16 | Outpatient (BNVA) | payer OTHER, SELFPAY | PROVIDERS: PCP Hospitalist; Visit Provider Hospitalist ==

== ENCOUNTER 2021-03-31 10:26 | Outpatient (REF) | payer OTHER, SELFPAY ==
--- NOTE | ~2021-03-31 | MM_ITS ---
EXAMINATION: MM SCREENING DIGITAL BREAST TOMOSYNTHESIS, BILATERAL CLINICAL INFORMATION: Screening. Asymptomatic. The lifetime risk of breast cancer based on the Tyrer-Cuzick Model is 10.1%. COMPARISON: Mammography: January 17, 2018 and May 12, 2015 TECHNIQUE: Digital breast tomosynthesis is performed in both the craniocaudal and mediolateral oblique views along with computer-aided detection (CAD). Synthesized 2D images are generated from the tomosynthesis. FINDINGS: There are scattered areas of fibroglandular density (ACR BI-RADS breast composition Category b). There are no significant masses, abnormal calcifications, or other abnormalities. Some vascular calcifications are seen within the upper outer aspect of the right breast. MM/MM tomosynthesis screening BI IMPRESSION: There are no significant changes from prior study. ASSESSMENT: BI-RADS 1: Negative RECOMMENDATION: Routine annual mammography screening. This patient's information was entered into a reminder system with a target due date for their next mammogram.
== END 2021-03-31 10:27 | disposition home or self-care (01) ==
LOC: HO.MAMMO 10:26
PROVIDERS: Visit Provider Hospitalist
DX: Z12.31 Encounter for screening mammogram for malignant neoplasm of breast (principal)
CPT/HCPCS: 77063; 77067

== ENCOUNTER → 2021-05-07 08:24 | Outpatient (BNVA) | payer OTHER, SELFPAY | PROVIDERS: PCP Hospitalist; Referring Provider Hospitalist; Visit Provider Physician Assistant ==

== ENCOUNTER → 2021-05-24 08:07 | Outpatient (BNVA) | payer OTHER, SELFPAY | PROVIDERS: PCP Hospitalist; Visit Provider Surgery ==

== ENCOUNTER 2021-06-03 09:48 | Outpatient (REF) | payer OTHER, SELFPAY ==
--- NOTE | ~2021-06-03 | XR_ITS ---
EXAMINATION: XR CHEST CLINICAL INFORMATION: Morbid obesity. COMPARISON: None TECHNIQUE: 2 views of the chest were obtained. FINDINGS: No significant abnormality is noted involving the heart, lungs, mediastinum, bony thorax or soft tissues. XR/XR chest 2V IMPRESSION: Unremarkable chest examination.
--- NOTE | 2021-06-03 10:20 | ECG_ITS ---
Test Reason : E66.01 Blood Pressure : / mmHG Vent. Rate : 083 BPM Atrial Rate : 083 BPM P-R Int : 158 ms QRS Dur : 092 ms QT Int : 404 ms P-R-T Axes : 023 019 059 degrees QTc Int : 474 ms Normal sinus rhythm Minimal voltage criteria for LVH, may be normal variant ( Michael product ) Nonspecific ST and T wave abnormality Abnormal ECG When compared with ECG of 03-FEB-2021 06:41, No significant change was found Referred By: Juan Gillespie Electronically Signed By:RANDALL NUÑEZ
[2021-06-03 10:25] LABS: MANUAL DIFF FLAG NO
[2021-06-03 10:50] LABS: Basophils Percent Auto 0.3 % (0-2); Eosinophils Absolute Auto 0.1 X10*3/uL (0.0-0.4); Hematocrit 43.1 % (37.0-47.0); Hemoglobin 13.6 g/dl (12.0-16.0); Imm Gran Abs Auto 0.04 X10*3/uL (0.00-0.03); Imm Gran Pct Auto 0.5 % (0.0-0.4); Lymphocytes Absolute Auto 3.1 X10*3/uL (1.2-4.9); Mean Corpuscular HGB Conc 31.6 g/dl (31.0-35.0); Mean Corpuscular Hemoglobin 27.8 pg (27.0-33.0); Mean Corpuscular Volume 88.1 fL (80.0-98.0); Mean Platelet Volume 12.3 fL (9.4-12.3); Monocytes Absolute Auto 0.6 X10*3/uL (0.1-1.2); Monocytes Percent Auto 7.3 % (2-11); Neutrophils Absolute Auto 4.8 x10*3/uL (2.0-8.3); Neutrophils Percent Auto 54.9 % (45-73); Platelet Count 305 X10*3/uL (160-400); Red Blood Count 4.89 X10*6/uL (4.20-5.50); White Blood Count 8.7 X10*3/uL (4.8-10.8)
[2021-06-03 11:06] LABS: Estimated Average Glucose 120 mg/dL; Hemoglobin A1c % 5.8 %
[2021-06-03 11:24] LABS: Alanine Aminotransferase 13 U/L (0-31); Albumin Level 4.2 g/dL (3.5-5.0); Alkaline Phosphatase 89 U/L (39-117); Anion Gap 13 (12-20); Aspartate Amino Transferase 14 U/L (5-31); Bilirubin Total 0.4 mg/dL (0.0-1.0); Blood Urea Nitrogen 11 mg/dL (9-16); C Reactive Protein 1.28 mg/dL (< or = 0.50); Calcium 9.7 mg/dL (8.4-10.2); Carbon Dioxide 26 mmol/L (22-29); Chloride 106 mmol/L (96-108); Cholesterol 206 mg/dL; Estimated Glomerular Filt Rate > 60; Glucose Random 91 mg/dL (60-115); HDL Cholesterol 44 mg/dL; Iron 53 mcg/dL (30-160); LDL Cholesterol Calculated 133 mg/dl; Potassium 4.2 mmol/L (3.3-5.1); Sodium 141 mmol/L (135-145); Total Protein 8.1 g/dL (6.5-8.0); Triglycerides 149 mg/dL
[2021-06-03 11:47] LABS: Percent Iron Saturation 15 % (15-50); Total Iron Binding Capacity 365 mcg/dL (228-428); Unsaturated Iron Binding 312 ug/dL
[2021-06-03 11:51] LABS: Ferritin 20 ng/mL (10-250); Insulin 22 uU/mL (2-29); TSH reflex Free T4 2.07 uIU/mL (0.32-4.0); Vitamin D 25-OH Total 15.7 ng/mL (>30)
[2021-06-03 11:52] LABS: Folate 11.2 ng/mL (> or = 4.0); Vitamin B12 425 pg/mL (200-900)
[2021-06-04 17:16] LABS: Calcium (PTHI) 9.6 mg/dL (8.6-10.2); PTHI 81 pg/mL (14-64)
[2021-06-07 00:12] LABS: Zinc 77 mcg/dL (60-130)
[2021-06-09 14:26] LABS: Vitamin A 45 mcg/dL (38-98)
[2021-06-09 14:41] LABS: Vitamin B1 9 nmol/L (8-30)
== END 2021-06-03 09:49 | disposition home or self-care (01) ==
LOC: HO.LAB 09:48
PROVIDERS: PCP Hospitalist; Visit Provider Surgery
DX: E66.01 Morbid (severe) obesity due to excess calories (principal); G47.33 Obstructive sleep apnea (adult) (pediatric)
CPT/HCPCS: 36415; 71046; 80053; 80061; 82306; 82607; 82728; 82746; 83036; 83525; 83540; 83970; 84425; 84443; 84590; 84630; 85025; 86140; 93005; 99211

== ENCOUNTER 2021-06-03 11:30 | Outpatient (REF) | payer OTHER, SELFPAY ==
[2021-06-04 13:28] LABS: H Pylori Breath Test Negative (Negative)
== END 2021-06-03 11:31 | disposition home or self-care (01) ==
LOC: HO.LNP 11:30
PROVIDERS: Visit Provider Surgery
DX: E66.01 Morbid (severe) obesity due to excess calories (principal); G47.33 Obstructive sleep apnea (adult) (pediatric)
CPT/HCPCS: 83013

== ENCOUNTER → 2021-06-08 09:03 | Outpatient (REF) | payer OTHER, SELFPAY ==
--- NOTE | 2021-06-08 09:06 | CA_ITS ---
Acquisition Time: 2021-06-08 10:00:12 Total Exercise Time: 00:04:57 Test Indications: ABN EKG, PREOP Medications: SEE CHART Protocol: EUNICE Max HR: 164 BPM 94% of Pred: 174 BPM Max BP: 168/090 mmHG Max Work Load: 6.9 METS Exercise stress test with exercise 4 min 57 sec of Eunice protocol, with moderate to severe shortness of breath, no chest discomfort, with isolated PACs, with normotensive response to exercise, with baseline EKG showing T wave flattening leads III, aVF, V4-V6 and nonspecific ST abnormality V6, without ischemic looking changes during exercise and recovery, with decreased activity tolerance for her age. In recovery her breathing improved to normal. Test reviewed with Dr Auguste. Recommend a pharmacological nuclear stress test if further evaluation for ischemia is needed. Referred By: Juan Gillespie Overread By: LAURY SAENZ
== END ==
LOC: HO.CARD 09:03
PROVIDERS: PCP Hospitalist; Visit Provider Surgery
DX: R94.31 Abnormal electrocardiogram [ECG] [EKG] (principal)
CPT/HCPCS: 93017

== ENCOUNTER → 2021-06-14 09:45 | Outpatient (BNVA) | payer OTHER, SELFPAY | PROVIDERS: PCP Hospitalist; Visit Provider Counselor Mental Health | DX: F41.1 Generalized anxiety disorder (principal) | CPT/HCPCS: 90791 ==

== ENCOUNTER → 2021-06-22 10:23 | Outpatient (BNVA) | payer OTHER, SELFPAY | PROVIDERS: PCP Hospitalist; Referring Provider Hospitalist; Visit Provider Physician Assistant Surgical | DX: Z13.89 Encounter for screening for other disorder (principal) ==

== ENCOUNTER → 2021-06-30 08:04 | Outpatient (BNVA) | payer OTHER, SELFPAY | PROVIDERS: PCP Hospitalist; Visit Provider Dietitian, Registered | DX: E66.01 Morbid (severe) obesity due to excess calories (principal); Z68.41 Body mass index [BMI] 40.0-44.9, adult | CPT/HCPCS: 97802 ==

== ENCOUNTER → 2021-07-02 08:17 | Outpatient (BNVA) | payer OTHER, SELFPAY | PROVIDERS: PCP Hospitalist; Visit Provider Surgery | DX: Z13.89 Encounter for screening for other disorder (principal) ==

== ENCOUNTER → 2021-07-16 08:20 | Outpatient (BNVA) | payer OTHER, SELFPAY | PROVIDERS: PCP Hospitalist; Visit Provider Surgery | DX: Z13.89 Encounter for screening for other disorder (principal) ==

== ENCOUNTER 2021-07-21 08:03 | Outpatient (REF) | payer OTHER, SELFPAY ==
--- NOTE | ~2021-07-21 | US_ITS ---
EXAMINATION: US COMPLETE ABDOMEN WITH LIVER ELASTOGRAPHY CLINICAL INFORMATION: Bariatric service evaluation. E66.01. COMPARISON: Ultrasound abdomen Limited 10/03/2020. TECHNIQUE: Real-time imaging of the abdominal viscera. Noninvasive ultrasound liver fibrosis assessment is performed using Rebecca ElastPQ point quantification shear wave elastography (2D-SWE) with a C5-2 MHz transducer. Multiple elastography samples are obtained. FINDINGS: PANCREAS: The pancreas is normal in size and echogenicity. No pancreatic ductal distention. ABDOMINAL AORTA: The proximal, middle, and distal aortic segments are normal in caliber. INFERIOR VENA CAVA: Visualized portions are normal. LIVER: The liver is borderline enlarged. The liver surface is smooth. There is increased hepatic parenchymal echogenicity consistent with hepatic steatosis. There is no hepatic parenchymal lesion or intrahepatic ductal dilatation. The right lobe measures 19.6 cm in length. The left lobe measures 14.5 cm in length. Portal flow is towards the liver (hepatopetal). Shear wave liver elastography median stiffness is 1.43 m/s (reference: normal median stiffness is 1.3 m/s or less). IQR/median stiffness to assess sampling precision is 0.11 (reference: good quality data set is IQR/median stiffness of 0.15 or less). GALLBLADDER: The gallbladder is normal in size and shows no wall thickening, calculus, or sludge. There is a small fold suggested near the neck of the gallbladder as an incidental finding. No polyp or nodule. No pericholecystic fluid. COMMON BILE DUCT: Normal in caliber measuring 0.3 cm in diameter. RIGHT KIDNEY: Normal. No hydronephrosis. No renal calculi or focal parenchymal lesions. Incidental column of Guy noted projecting towards renal sinus. The kidney measures 12.2 cm in maximum dimension. LEFT KIDNEY: Normal. No hydronephrosis. No focal parenchymal lesions. The kidney measures 13.2 cm in maximum dimension. There is a 2 mm specular echo lower pole with twinkling artifact on color Doppler which may represent a tiny nonobstructing calculus. SPLEEN: Normal. The spleen measures 11.2 cm in maximum dimension. FREE FLUID: None. US/US abdomen comp w elastography IMPRESSION: 1. Borderline hepatomegaly secondary to diffuse hepatic steatosis. Portal flow towards the liver. 2. Liver elastography: In the absence of other known clinical signs, measurements rule out compensated advanced chronic liver disease. If there are known clinical signs, further testing may be needed for confirmation. 3. No cholelithiasis or ductal dilatation. 4. Question punctate nonobstructing calculus lower pole left kidney. No hydronephrosis. REFERENCE: Society of Radiologists in Ultrasound Liver Stiffness Thresholds (2020): LIVER STIFFNESS THRESHOLDS: *Liver Stiffness equal or less than 1.3 m/s: High probability of being normal. *Liver Stiffness less than 1.7 m/s: In the absence of other known clinical signs, rules out compensated advanced chronic liver disease. *Liver Stiffness 1.7-2.1 m/s: Suggestive of compensated advanced chronic liver disease but need further test for confirmation. *Liver Stiffness over 2.1 m/s: Rules in compensated advanced chronic liver disease. *Liver Stiffness over 2.4 m/s: Suggestive of clinically significant portal hypertension. QUALITY OF DATA SET: *IQR/Median value equal or less than 0.15 implies a quality data set. *IQR/Median value over 0.15 implies a poor quality data set. SIGNIFICANT CHANGE FROM PRIOR EXAM: Significant change if liver stiffness measurement is 10% or greater from prior exam. OTHER CONSIDERATIONS: The stage of liver fibrosis may be overestimated in the setting of acute hepatitis, liver inflammation, elevated liver function tests, hepatic vascular congestion, obstructive cholestasis, non-fasting state, and infiltrative diseases such as amyloidosis and lymphoma. In some patients with NAFLD, the liver stiffness thresholds for compensated advanced chronic liver disease may be lower. In causes other than viral hepatitis and NAFLD, liver stiffness thresholds are not well established.
--- NOTE | ~2021-07-21 | FL_ITS ---
EXAMINATION: XR FLUOROSCOPY UPPER GI WITH AIR CLINICAL INFORMATION: Morbid/severe obesity. COMPARISON: None TECHNIQUE: Routine upper GI air-contrast study was performed in upright and lying position. FINDINGS: Following oral administration of thick barium and effervescent granules there is normal propagation of bolus from the oral cavity through the pharynx, esophagus into stomach without any evidence of obstruction, narrowing or stricture. On placing patient supine and prone lying the course, caliber and peristalsis of the stomach, duodenal bulb and the sweep is normal. No gastroesophageal reflux or hiatal hernia seen. FLUOROSCOPY TIME: 1.5 minutes DOSE AREA PRODUCT: 25.027 uGy-m2 (microgray-meter squared) FL/FL upper GI w air IMPRESSION: Unremarkable upper GI air-contrast study.
== END 2021-07-21 08:04 | disposition home or self-care (01) ==
LOC: HO.US 08:03
PROVIDERS: PCP Hospitalist; Visit Provider Surgery
DX: E66.01 Morbid (severe) obesity due to excess calories (principal); G47.33 Obstructive sleep apnea (adult) (pediatric)
CPT/HCPCS: 74246; 76705; 76981

== ENCOUNTER → 2021-08-02 09:04 | Outpatient (REF) | payer OTHER, SELFPAY ==
--- NOTE | ~2021-08-02 | NM_ITS ---
Myocardial perfusion study Indication: Preoperative cardiovascular examination to evaluate for myocardial ischemia Technique: The patient was brought in for a Lexiscan perfusion study on 08/02/2021. Patient performed low-level exercise and was injected 0.4 mg of Lexiscan intravenously. Within a minute of injection, 35 mCi of sestamibi was given intravenously. Images were obtained using the SPECT gamma camera interlaced with the gating device. Images were obtained in supine position. Resting perfusion study was performed on 08/03/2021. Patient was administered 25 mCi of sestamibi intravenously at rest. Images were then obtained in supine position. Images obtained with and without CT attenuation. Total DLP 129 mGy-cm. Images were processed with the software and compared side to side in short axis, horizontal long axis and vertical long axis views. Findings: The stress perfusion study showed non attenuated images show mildly reduced uptake in the basal inferior and mildly reduced uptake in the apex of the LV myocardium. Remainder of the LV myocardium is normally perfused. Attenuation corrected images show moderately reduced uptake in the apex and mildly reduced uptake in the distal anterior wall of the LV myocardium. The gated study shows normal LV systolic function with calculated LVEF of 69%. LV cavity is normal in size. The gated study shows normal systolic wall thickening and contraction of segments. Resting study shows non attenuated images show mildly reduced uptake in the basal inferior wall of the LV myocardium. Remainder of the LV myocardium is normally perfused. Attenuation corrected images show moderately reduced uptake in the apex of the LV myocardium. Gating at rest reveals normal systolic wall motion with ejection fraction at 61%. The findings are consistent with possible small area of lateral defect of the apex suggestive of ischemia.. NM/NM blaire perf SPECT rest & str Impression: 1. Myocardial perfusion imaging study shows equivocal for small area of apical ischemia 2. Gated LVEF is 69% 3. Transient ischemic dilatation not present EKG is nondiagnostic for ischemia
--- NOTE | 2021-08-02 09:07 | CA_ITS ---
Acquisition Time: 2021-08-02 09:34:40 Total Exercise Time: 00:02:00 Test Indications: ABN ETT, ABN EKG Medications: SEE CHART Protocol: LEXISCAN Max HR: 123 BPM 71% of Pred: 173 BPM Max BP: 124/070 mmHG Max Work Load: 1.0 METS Pharmacological stress test with Lexiscan injection, while sitting and kicking her legs, without anginal symptoms, without arrythmia, with normotensive response to injection, with nondiagnostic EKG for ischemia. Nuclear images pending. Test reviewed with Dr Whaley. Referred By: Juan Gillespie Overread By: LAURY SAENZ
== END ==
LOC: HO.CARD 09:04
PROVIDERS: PCP Hospitalist; Visit Provider Surgery
DX: R94.39 Abnormal result of other cardiovascular function study (principal)
CPT/HCPCS: 78452; 93017; A9500; J0280; J2785

== ENCOUNTER → 2021-08-12 08:17 | Outpatient (BNVA) | payer OTHER, SELFPAY | PROVIDERS: PCP Hospitalist; Visit Provider Surgery | DX: Z13.89 Encounter for screening for other disorder (principal) ==

== ENCOUNTER → 2021-08-18 08:39 | Outpatient (BNVA) | payer OTHER, SELFPAY | PROVIDERS: PCP Hospitalist; Visit Provider Surgery | DX: E66.01 Morbid (severe) obesity due to excess calories (principal) ==

== ENCOUNTER → 2021-08-27 08:24 | Outpatient (BNVA) | payer OTHER, SELFPAY | PROVIDERS: PCP Hospitalist; Referring Provider Hospitalist; Visit Provider Surgery | DX: Z13.89 Encounter for screening for other disorder (principal) ==

== ENCOUNTER → 2021-08-30 10:46 | Outpatient (BNVA) | payer OTHER, SELFPAY | PROVIDERS: PCP Hospitalist; Referring Provider Hospitalist; Visit Provider Internal Medicine | DX: Z13.89 Encounter for screening for other disorder (principal) ==

== ENCOUNTER → 2021-08-31 08:26 | Outpatient (REF) | payer OTHER, SELFPAY ==
--- NOTE | 2021-08-31 08:29 | CA_ITS ---
Transthoracic Echocardiogram Patient (Last, First, Middle): Jessi Trent, Gender: Female Date of : 1975 Age: 46 Procedure Date: 08/31/2021 Procedure Type: Transthoracic Echocardiogram Location: OP Height: 160.02 cm Weight: 101.61 kg BSA: 2.03 m2 Heart Rate: bpm BP: 124 / 86 mmHg Branch Billing Payroll Clerk: CHELSI Referring MD: Ty Whaley MD Symptoms: Z01.810 - Encounter for preprocedural cardiovascular exam... Study Quality: Adequate ECG Rhythm: Sinus Conclusions: - The left ventricular systolic function is normal. The calculated ejection fraction is 61% by biplane method. - No obvious valvular pathology seen on this study. Findings Left Ventricle Normal left ventricular cavity size. There is normal left ventricular wall thickness. The left ventricular systolic function is normal. The calculated ejection fraction is 61% by biplane method. There is no evidence of regional wall motion abnormalities. Diastolic function is normal for age. LV peak GLS -17.3%. Right Ventricle Normal right ventricular cavity size and systolic function. Atria Both atria are normal in size. Aortic Valve There is a normal trileaflet aortic valve. There is no aortic valve stenosis. There is no aortic valve regurgitation. Mitral Valve The mitral valve appears normal. There is no mitral valve regurgitation. There is no mitral valve stenosis. Pulmonic Valve The pulmonic valve is likely normal. Tricuspid Valve There is trace tricuspid valve regurgitation. The pulmonary artery systolic pressure is normal. Great Vessels The aortic annulus, sinuses of valsalva, and asc aorta are normal in size. Venous The inferior vena cava is normal in size and collapses greater than 50% with inspiration. Pericardium/Pleural There is no evidence of pericardial effusion. Prior Study Comparison No prior study available for comparison. Recommendations, Care & Conclusions No obvious valvular pathology seen on this study. Measurements 2D Linear Measurements IVSd: 0.90 0.6-0.9/0.6-1.0 cm LVIDd: 4.34 3.9-5.3/4.2-5.9 cm LVIDd Index: 2.14 2.4-3.2/2.2-3.1 cm/m2 LVIDs: 2.69 2.0-3.6 cm LVPWd: 0.94 0.7-1.1 cm LA Diam: 3.50 2.7-3.8/3.0-4.0 cm LAIDs Index: 1.72 1.5-2.3 cm/m2 LV Mass: 160.93 67-162/88-224 g LV Mass Index: 79.28 43-95/49-115 g/m2 LVOT Diam: 2.20 3.0+(-)1.3 cm 2D Systolic Function EF 4C: 57.70 >55% EF 2C: 60.90 >55% EF BiP: 60.70 >55% Mitral Valve MV Pk E: 0.84 MV PK A: 0.83 MV Decel Time: 186.00 E/A: 1.00 E'Lateral: 10.20 E'Medial: 7.29 E/E' Med: 11.60 E/E' Lat: 8.30 PHT: 54.00 MVA PHT: 4.07 Decel [place]: 4.54 Aortic Valve AoV Pk Flip: 1.31 AoV Mn Flip: 0.95 AoV VTI: 0.29 AoV Pk Grad: 7.00 Aov Mn Grad: 4.00 VLAD Cont.VTI: 2.70 LVOT LVOT Pk Flip: 0.85 LVOT Mn Flip: 0.61 LVOT VTI: 0.21 LVOT Pk Grad: 3.00 LVOT Mn Grad: 2.00 LVOT Diam: 2.20 LVOT Area: 3.80 Diastolic Function MV Pk E: 0.84 MV Pk A: 0.83 E/A: 1.00 E'Medial: 7.29 E/E' Med: 11.60 E' Laterial: 10.20 E/E' Lat: 8.30 Right Ventricle TAPSE (mm): 20.40 TVS' Flip: 13.80 Tricuspid Valve RA Press: 3.00 Great Vessels Aorta Sinus of Valsalva: 3.79 2.0-3.[address] [place]: 3.32 1.7-3.4 cm Ao Asc: 3.70 2.1-3.4 cm Updated in Other Vendor System with Status of Final Ty Whaley MD electronically signed on 09/01/2021 9:45:52 AM with status of Final
== END ==
LOC: HO.CARD 08:26
PROVIDERS: PCP Hospitalist; Visit Provider Internal Medicine
DX: Z01.810 Encounter for preprocedural cardiovascular examination (principal); E66.01 Morbid (severe) obesity due to excess calories; R94.31 Abnormal electrocardiogram [ECG] [EKG]; R94.39 Abnormal result of other cardiovascular function study
CPT/HCPCS: 93005; 93306; 93356; 99202

== ENCOUNTER 2021-09-02 06:06 | Inpatient (IN) | payer OTHER, SELFPAY ==
[2021-08-27 08:22] LABS: MANUAL DIFF FLAG NO
[2021-08-27 08:33] LABS: Basophils Percent Auto 0.5 % (0-2); Eosinophils Absolute Auto 0.1 X10*3/uL (0.0-0.4); Eosinophils Percent Auto 1.5 % (0-4); Hematocrit 40.5 % (37.0-47.0); Imm Gran Abs Auto 0.03 X10*3/uL (0.00-0.03); Imm Gran Pct Auto 0.4 % (0.0-0.4); Lymphocytes Absolute Auto 2.4 X10*3/uL (1.2-4.9); Lymphocytes Percent Auto 32.3 % (20-40); Mean Corpuscular HGB Conc 32.1 g/dl (31.0-35.0); Mean Corpuscular Hemoglobin 28.2 pg (27.0-33.0); Mean Corpuscular Volume 87.9 fL (80.0-98.0); Mean Platelet Volume 12.3 fL (9.4-12.3); Monocytes Absolute Auto 0.6 X10*3/uL (0.1-1.2); Monocytes Percent Auto 8.1 % (2-11); Neutrophils Absolute Auto 4.2 x10*3/uL (2.0-8.3); Neutrophils Percent Auto 57.2 % (45-73); Platelet Count 250 X10*3/uL (160-400); Red Blood Count 4.61 X10*6/uL (4.20-5.50); Red Cell Distribution Width 14.2 % (11.0-16.0); White Blood Count 7.4 X10*3/uL (4.8-10.8)
[2021-08-27 08:41] LABS: Prothrombin Time 11.9 SEC (9.9-13.0)
[2021-08-27 08:44] LABS: Partial Thromboplastin Time 37.2 SEC (24.1-38.0)
[2021-08-27 08:47] LABS: Estimated Average Glucose 111 mg/dL; Hemoglobin A1c % 5.5 %
[2021-08-27 08:55] LABS: Alanine Aminotransferase 13 U/L (0-31); Alkaline Phosphatase 73 U/L (39-117); Anion Gap 10 (12-20); Aspartate Amino Transferase 11 U/L (5-31); Bilirubin Total 0.4 mg/dL (0.0-1.0); Blood Urea Nitrogen 9 mg/dL (9-16); C Reactive Protein 0.97 mg/dL (< or = 0.50); Calcium 9.7 mg/dL (8.4-10.2); Carbon Dioxide 28 mmol/L (22-29); Chloride 105 mmol/L (96-108); Cholesterol 198 mg/dL; Estimated Glomerular Filt Rate > 60; Glucose Random 100 mg/dL (60-115); HDL Cholesterol 45 mg/dL; LDL Cholesterol Calculated 133 mg/dl; Sodium 139 mmol/L (135-145); Total Protein 7.5 g/dL (6.5-8.0); Triglycerides 104 mg/dL
[2021-08-27 09:20] LABS: Insulin 19 uU/mL (2-29)
[2021-08-27 09:21] LABS: TSH reflex Free T4 2.57 uIU/mL (0.32-4.0)
[2021-08-27 11:08] VITALS: BMI 43.2
--- NOTE | 2021-08-28 09:19 | MHC.SHP ---
Pre-Procedural Eval Section A Date of Service: 08/28/21 The patient is an INPATIENT: Yes The History & Physical has been completed within 30 days and I have reviewed it.: Yes Section B Chief Complaint: obesity Relevant Family History (Specify if Yes): No Relevant Social History: None Present Medications: None Medical History: No relevant PMH History of Previous Operations: No relevant previous surgery Allergies: Allergies Allergy/AdvReac Type Severity Reaction Status Date / Time trazodone [TRAZODONE] Allergy Intermediate OVER Verified 08/27/21 10:08 SEDATION, tachycardia Review of Systems Sugical H&P ROS: Negative: Constitution, Cardiovascular, Respiratory, Neurological, Psychiatric, Hem-Onc, Allergic/Immunologic, Gastrointestinal, Genitourinary, Musculoskeletal, Integumentary, Endocrine and Eyes/Ears/Nose/Throat Exam Surgical H&P Exam: Normal: HEENT, Normal: Heart, Normal: Lungs, Normal: Extremities, Normal: Abdomen, Normal: Skin and Normal: Neurological Plan Diagnosis/Plan: Unchanged I have reviewed the history and physical and performed a pertinent physical examination on my patient. No changes have occurred unless specified.
--- NOTE | 2021-09-01 09:14 | HO.ANESPROP2 ---
Documented by User: Salina Keita NP 09/01/21 12:08 HPI - Anesthesia Eval Consult details Narrative: 46yo F for Gastrectomy Sleeve, EGD,Possible Diaphragmatic hernia,Possible Ventral hernia,Possible open Optimized per cardiology with nml echo [facility] Active Problems Active Problems: All Active Problems (Updated 08/30/21 @ 11:08 by Ty Whaley MD) Abnormal myocardial perfusion study (Acute) Preoperative cardiovascular examination (Acute) Migraine (Acute) Arthritis (Acute) Allergic rhinitis (Acute) Unintended weight gain (Acute) Physical exam (Acute) Vertigo (Acute) Has daytime drowsiness (Acute) Right anterior shoulder pain (Acute) Morbid obesity due to excess calories (Acute) Abnormal EKG (Acute) Vitamin B12 deficiency (Acute) Vitamin D deficiency (Acute) Generalized anxiety disorder (Acute) Equivocal stress test (Acute) Asthma (Acute) DJD (degenerative joint disease) (Acute) Insomnia (Acute) HELIO (obstructive sleep apnea) (Acute) Past Medical History Medical History Asthma DJD (degenerative joint disease) Headache History of anxiety History of depression Insomnia HELIO (obstructive sleep apnea) Family History Family History Mother No problems noted. Father No problems noted. Surgical History Surgical History H/O tubal ligation Social History Social History Housing: House Are you a primary adult live in caregiver to a significant other at home: No Do you presently have visiting nurse or other home services: No Alcohol intake: never Patient Tobacco Use Status: Never used Tobacco e-Cigarette/Vaping Use: Never Used Second Hand Smoke Exposure: No Are you DNR?: No Advance Directives: No Advance Directives Information Provided: Yes (mailed w/ pre-op instructions) Advance Directives on File: No Recently lost weight without trying: No How much weight loss: 24-33 pounds Eating poorly because of decreased appetite: No Nutrition screen score: 3 Nutrition Risks: No Nutritional Risk Patient : No service: No Current occupational status: employed Cognitive needs: No Hearing needs: No Vision needs: Yes (Glasses) Meds Allergies Allergy/AdvReac Type Severity Reaction Status Date / Time trazodone [TRAZODONE] Allergy Intermediate OVER Verified 08/30/21 10:56 SEDATION, tachycardia Exam Exam Date and Time: September 01, 2021 0914 Height,Weight and Vital Signs: Height 5 ft 3 in Weight 110.677 kg Pertinent Lab Results Pertinent Lab Results: Laboratory Tests 08/27/21 08/27/21 08/27/21 08:17 08:20 08:20 WBC 7.4 RBC 4.61 Hgb 13.0 Hct 40.5 MCV 87.9 MCH 28.2 MCHC 32.1 RDW 14.2 Plt Count 250 MPV 12.3 Immature Gran % (Auto) 0.4 Neut % (Auto) 57.2 Lymph % (Auto) 32.3 [place] % (Auto) 8.1 Eos % (Auto) 1.5 Baso % (Auto) 0.5 Lymph # (Auto) 2.4 [place] # (Auto) 0.6 Eos # (Auto) 0.1 Baso # (Auto) 0.0 Abs Immat Gran (auto) 0.03 Absolute Neuts (auto) 4.2 Absolute Nucleated RBC 0.000 Nucleated RBC % (auto) 0.0 PT 11.9 INR 1.0 APTT 37.2 Sodium Potassium Chloride Carbon Dioxide Anion Gap BUN Creatinine Estim Creat Clear Calc Estimated GFR Random Glucose Estimat Average Glucose Hemoglobin A1c % Insulin Level Calcium Total Bilirubin AST ALT Alkaline Phosphatase C-Reactive Protein Total Protein Albumin Triglycerides Cholesterol LDL Cholesterol, Calc HDL Cholesterol TSH Blood Type O Positive Antibody Screen NEGATIVE 08/27/21 08/27/21 08:20 08:20 WBC RBC Hgb Hct MCV MCH MCHC RDW Plt Count MPV Immature Gran % (Auto) Neut % (Auto) Lymph % (Auto) [place] % (Auto) Eos % (Auto) Baso % (Auto) Lymph # (Auto) [place] # (Auto) Eos # (Auto) Baso # (Auto) Abs Immat Gran (auto) Absolute Neuts (auto) Absolute Nucleated RBC Nucleated RBC % (auto) PT INR APTT Sodium 139 Potassium 4.0 Chloride 105 Carbon Dioxide 28 Anion Gap 10 L BUN 9 Creatinine 0.75 Estim Creat Clear Calc TNP Estimated GFR > 60 Random Glucose 100 Estimat Average Glucose 111 Hemoglobin A1c % 5.5 Insulin Level 19 Calcium 9.7 Total Bilirubin 0.4 AST 11 ALT 13 Alkaline Phosphatase 73 C-Reactive Protein 0.97 H Total Protein 7.5 Albumin 4.0 Triglycerides 104 Cholesterol 198 LDL Cholesterol, Calc 133 HDL Cholesterol 45 TSH 2.57 Blood Type Antibody Screen Narrative Narrative: EKG 08/2021 sinus rhythm at 66/Min; nonspecific ST-T changes.? Normal MD/QTc ECHO 08/2021 Conclusions: - The left ventricular systolic function is normal.? The ? calculated ejection fraction is 61% by biplane method. ? - No obvious valvular pathology seen on this study.?? NM blaire perf SPECT rest & str 07/2021 Impression: ? 1.? Myocardial perfusion imaging study shows equivocal for small area of apical ischemia 2.? Gated LVEF is 69% 3. Transient ischemic dilatation not present ? EKG is nondiagnostic for ischemia Assessment and Plan Assessment Anesthesia Assessment: Chart Reviewed Documented by User: Valerie Neil MD 09/02/21 07:22 [facility] Past Medical History Medical History Asthma DJD (degenerative joint disease) Headache History of anxiety History of depression Insomnia HELIO (obstructive sleep apnea) Family History Family History Mother No problems noted. Father No problems noted. Surgical History Surgical History H/O tubal ligation History of Problems with Anesthesia: No Social History Social History Housing: House Are you a primary adult live in caregiver to a significant other at home: No Do you presently have visiting nurse or other home services: No Alcohol intake: never Patient Tobacco Use Status: Never used Tobacco e-Cigarette/Vaping Use: Never Used Second Hand Smoke Exposure: No Are you DNR?: No Advance Directives: No Advance Directives Information Provided: Yes (mailed w/ pre-op instructions) Advance Directives on File: No Recently lost weight without trying: No How much weight loss: 24-33 pounds Eating poorly because of decreased appetite: No Nutrition screen score: 3 Nutrition Risks: No Nutritional Risk Patient : No service: No Current occupational status: employed Cognitive needs: No Hearing needs: No Vision needs: Yes (Glasses) Meds Allergies Allergy/AdvReac Type Severity Reaction Status Date / Time trazodone [TRAZODONE] Allergy Intermediate OVER Verified 08/30/21 10:56 SEDATION, tachycardia Exam Airway Mallampati Class: III TM Dist: >3cm Neck ROM: Full Loose/Missing/Broken Teeth: No Heart: RRR Lungs: CTA Assessment and Plan Assessment Anesthesia Assessment: Anesthesia Plan Discussed Final Anesthetic Review History of Problems with Anesthesia: No NPO: Yes ASA Class: III Final Preanesthetic Review: Meds/Allgs Chart Reviewed, Consent Obtained/Reviewed and Anes Risks/Benef Reviewed Patient Risk: Intermediate Procedure Risk: Intermediate Anesthetic Plan Anesthetic Plan: GA Disposition: Standard PACU
[2021-09-01 13:19] LABS: COVID-19 Test Negative (Negative)
[2021-09-02] VITALS (14 sets, daily range): BP systolic 104–146; BP diastolic 60–92; PULSE 75–91; RESP 15–18; TEMP 36.2–37.2; O2SAT 94–99
[2021-09-02] MEDS: Lactated Ringers 1,000 ML 999 ML IV (06:44)
--- NOTE | 2021-09-02 06:50 | PC.NURSE ---
second iv attempt left hand no success.
--- NOTE | 2021-09-02 07:13 | PHA.MEDREC ---
Pharmacy Consult ? Medication Reconciliation Pharmacy has reviewed the medication reconciliation completed by nursing. Raissa Farrar, JanD
--- NOTE | 2021-09-02 10:38 | PM.DS ---
DS: Providers Provider Date of Service: 09/03/21 Date of admission: 09/02/21 06:06 Primary care physician: Masha Sanchez NP DS: Summary Hospital Course Hospital Course: ADMITTING DIAGNOSIS: morbid obesity, asthma, riccardo, anxiety, depression ? DISCHARGE DIAGNOSIS: same, s/p laparoscopic sleeve gastrectomy ? PAST SURGICAL HISTORY: tubal ligation ? PROCEDURE: upper endoscopy, laparoscopic sleeve gastrectomy ? DISCHARGE SUMMARY: ? History of Present Illness: ? The patient is a?46 year-old woman with a BMI of?43.2 kg/m2 and associated co-morbidities as described above. The patient had extensive work-up,lost?28.2 lbs preoperatively and was electively scheduled for laparoscopic, possible open sleeve gastrectomy and gastropexy. Risks and complications of the surgery were discussed with the patient in advance, particularly the possibility of , pulmonary embolism, anastomotic leak, bleeding, bowel injury, GERD, cardiac, renal or pulmonary complications. The patient understood all the risks and was in agreement with the surgical plan. ? Hospital Course: ? The patient underwent an uneventful laparoscopic sleeve gastrectomy with gastropexy on the day of admission. Postoperatively, the patient was transferred to the surgical floor. The patient received IV Acetaminophen and IV dilaudid for pain control. Patient was started on bariatric phase 1 diet POD #0. On postoperative day one, the patient was feeling well without nausea, vomiting, fevers, or tachycardia. The patient had some mild incisional pain and the abdomen was soft. ? On the morning of postoperative day one, the patient was continued on 1 ounce of water or ice every half hour. During the day, the patient did fairly well, having some incisional pain, but able to ambulate adequately and to tolerate liquids well. ? Since the patient is doing well, we decided that the patient was ready to be discharged. The patient was given instructions to follow-up with me next week and to call my office for any fever over 101, persistent abdominal pain, nausea, vomiting, GERD, symptoms of DVT such as calf tenderness, or leg swelling, or pulmonary embolism such as chest pain or shortness of breath. The patient was also instructed to drink 40-60 ounces of liquids per day using the 1-ounce cups. The patient had been given prescriptions for Tylenol for pain, Zofran prn for nausea, and pantoprazole and carafate previously. The patient was encouraged to ambulate and use the incentive spirometer. The patient was allowed to shower, but no baths, and encouraged to stay active at home. All of these instructions were given to the patient personally. All questions were answered and the patient understood all instructions, the instructions were also given to the patient in print. Time Spent with Patient Time attestation: Total time spent providing and/or coordinating discharge services: Discharge coordination time: Less than 30 minutes Quality: Safe Use of Opioids Does Pt have an Active Cancer Diagnosis on the Problem List?: No Quality: Stroke Does the patient have a stroke diagnosis?: No Physical Exam Vital Signs: Vital Signs: Last Vital Signs Temp 98.1 F 09/02/21 06:22 Pulse 88 09/02/21 06:22 Resp 16 09/02/21 06:22 BP 143/83 H 09/02/21 06:22 Pulse Ox 97 09/02/21 06:22 BMI result Body Mass Index 43.2 DS: Data Data Completed and Pending Pending studies at discharge: Pending at discharge 09/02/21 09:43 Surgical [PTH] Routine Labs on day of discharge: Laboratory Results - last 24 hr 09/01/21 12:45 COVID-19 (LYNN) Negative COVID-19 Clin Com See Note Discharge Plan Discharge Patient Disposition: Home, Self-Care Discharge Diagnosis: s/p laparoscopic sleeve gastrectomy Referrals: Masha Sanchez [facility]ER [Primary Care Provider] - 1 Week Discharge Medications: Continued albuterol sulfate [Ventolin HFA] 90 mcg/actuation HFA aerosol inhaler 2 puff inhalation Q4-6H PRN (Reason: bronchospasm) 30 Days Qty: 6.7 1RF cetirizine [All Day Allergy (cetirizine)] 10 mg tablet 10 mg PO DAILY PRN (Reason: allergy symptoms) Qty: 90 1RF fluticasone propionate [Allergy Relief (fluticasone)] 50 mcg/actuation spray,suspension 1 spray intranasal DAILY 30 Days Qty: 16 6RF Rx Instructions: administer into each nostril pantoprazole 40 mg tablet,delayed release (DR/EC) 40 mg PO DAILY Qty: 30 2RF sucralfate 100 mg/mL suspension 10 ml PO BID Qty: 400 2RF ondansetron HCl 4 mg tablet 4 mg PO Q12H Qty: 20 0RF Discontinued mecobalamin (vitamin B12) 1,000 mcg tablet,disintegrating 1,000 mcg sublingual DAILY Qty: 30 2RF Rx Instructions: place tablet under tongue and allow to dissolve for at least30 secs before swallowing cholecalciferol (vitamin D3) 125 mcg (5,000 unit) capsule 125 mcg PO DAILY Qty: 30 2RF Aspercreme (lidocaine HCl) 4 % liquid roll-on See Rx Instructions topical .COMPLEX 30 Days Qty: 73 2RF Rx Instructions: small amount topical; polyethylene glycol 3350 [Miralax] 17 gram powder in packet 17 g PO DAILY Qty: 14 0RF Rx Instructions: Mix each packet with 8oz of water and do 7 packets on 08/29/21 and another 7 packets on 08/30/21 Discharge Orders: Discharge Order (Routine); Ordered 09/03/21 Ordered By: Juan Gillespie Diet: other Activity on Discharge: No heavy lifting Stand Alone Forms: Patient Portal Discharge page Care Plan Goals: weight loss Health Concerns: morbid obesity Plan of Treatment: No tub baths, sex or returning to work until discussed at first post op appointment. No exercise, alcohol, tobacco or illegal drug use. Continue to use incentive spirometer hourly while awake. Walk in home for 5- 10 minutes every 2 hours during the first week. Follow all instructions in the bariatric handbook and call with any questions.Discharge Instructions 1. Please call your doctor or come back to the emergency room should any new symptoms arise. 2. You will receive a courtesy call from [facility] 24-48 hours after discharge. 3. Activity: abstain from alcohol, practice limited stair climbing, no bending, no driving, no exercise, no illicit substances, no lifting, no sex, no tub bath, no work. 4. Diet: continue as discussed with Dr. Gillespie. 5. Dressing Change/Wound Care: Your incision is covered by clear bandages and guaze underneath. If the area is tender, you may apply an ice pack for short intervals (no more than 20 minutes on, followed by at least 20 minutes off). Do not apply heat. Do not use creams, lotions, or topical antibiotics unless instructed to do so by your surgeon. These can cause infection or allergic reaction. 6. Call your doctor if: - Your temperature exceeds 101.5 F - You experience excessive pain or swelling - You have an unexpected reaction to medication - You have excessive bleeding - You experience continued vomiting/nausea - Your incision begins to separate - Your incision shows signs of infection such as increased redness, swelling, excessive pain, heat, or drainage (light blood or clear fluid is normal) 7. General instructions: No lifting greater than 5 lbs for the next 4 weeks[address] within 24 hours of taking narcotic pain medications. If you do not move your bowels in the next 2 days, please take milk of magnesia over the counter. Please follow the post op diet and do not advance your diet until you are seen in the office in about 2 weeks. Please walk around your home every hour or two to prevent blood clots from forming in your legs. You do not need to wake from sleeping to walk. Please sleep in a bed or couch to prevent kinking at the hips and knees. Please take your incentive spirometer (your lung industrial staff nurse) home with you and use it for the next few days to prevent pneumonias. You may shower, no hot tubs, baths or swimming pools. Please call the office with any questions or concerns such as increasing abdominal pain, fever, chills, shortness of breath, chest pain, leg pain or swelling, or redness or drainage from your incisions. Please stay on stage 3 diet which includes sugar free clear liquids such as ice pops and jello and broth and crystal light. Avoid all carbonation. Please drink 3 protein shakes with at least 25-30 grams of protein daily or 3 of the Celebrate 4:1 shakes which can be purchased in our office. The Celebrate shakes have all of the bariatric vitamins you need if you consume these shakes. If you are drinking other protein shakes, you will need to purchase the Celebrate multivitamins and calcium that we provide in the office (they will provide all the vitamins you need). Please make sure you are consuming at least 40-60 ounces of water in addition to your 3 protein shakes daily. Do not hesitate to contact the office with any questions at . The patient's medical history has been reviewed and they are considered low risk for post op DVT and therefore DVT prophylaxis is not considered necessary. Travel after surgery was reviewed. The patient has not disclosed any travel plans during the first 30 days after surgery and they have been advised that within the first 30 days after surgery any bus, plane, train or car travel over 2 hours in duration is contraindicated due to the possibility of developing blood clots from immobility. Any travel, needs to include periods of ambulation of 10 minutes in duration every 2 hours.? The patient was instructed to discuss any plans for travel during this period with their bariatric surgeon. Assessment: stable s/p laparoscopic sleeve gastrectomy
[2021-09-02 10:59] LABS: Hemoglobin 12.3 g/dl (12.0-16.0)
--- NOTE | 2021-09-02 11:02 | PM.OP ---
Brief Operative Note Date of Service: 09/02/21 Pre-op diagnosis: Morbid obesity with comorbidities (see below) Post-op diagnosis: same Procedure: INITIAL PATIENT BMI ON PRESENTATION AT OUR OFFICE: 43.9 kg/m2 LAST BMI BEFORE SURGERY: 40.4 kg/m2 COMORBIDITIES: sleep apnea on CPAP, asthma, depression, anxiety, headaches, migraines, DJD, liver steatosis ?The patient presented to the Weight Management Program with significant obesity that was negatively impacting the patient's comorbidities as listed above.? The program is a phased program with a special focus on preoperative medical weight management to promote substantial weight loss and prepare the patients for the second phase of the program: bariatric surgery. The patient participated in an intensive weekly lifestyle ?intervention and exercise program during which the patient ?has lost between the initial office visit and the last preoperative visit 27.6 lbs, or 10.91% of initial actual body weight. It was deemed appropriate for the patient to now have bariatric surgery. In light of the current Covid-19 pandemic and the well documented strong association of obesity and increased risk of worse outcomes if infected with Covid-19 (REFERENCES:https://pubmed.ncbi.nlm.nih.gov/40328915/,?https://pubmed.ncbi.nlm.nih.gov/48719893/), any delay in undergoing bariatric surgery may lead to the patient's worsening health condition and increased?risk of more severe Covid-19 disease if infected. In addition a recent?study from [facility] published in [facility] on 04/05/2021 ([email or web address]) found that, among patients with obesity, substantial weight loss achieved with surgery was associated with improved outcomes of COVID-19 infection. The findings suggest that obesity can be a modifiable risk factor for the severity of COVID-19 infection. In addition, the patient met the BMI-criteria for bariatric surgery based on the BMI on initial presentation. The patient should not be penalized for achieving such weight loss because ?it is not sustainable long-term without surgical intervention and it was achieved in preparation for bariatric surgery ?under my direction and based on my published research ([email or web address] and?[email or web address].soard.org/article/[email or web address]/pdf) ?that a 10% preoperative weight loss improves long-term weight loss after surgery and reduces perioperative complications.? Insurance carriers such as [facility] have endorsed my recommendations ?and have included in their policies criteria to include a 10% preoperative weight loss requirement. PROCEDURE: Esophago-gastroscopy, laparoscopic lysis of adhesions, laparoscopic sleeve gastrectomy and laparoscopic gastropexy INDICATIONS: This is a 46 year-old female who was electively scheduled for laparoscopic, possibly open sleeve gastrectomy. The risks and complications of the procedure were discussed with the patient in advance, particularly the possibility of ; pulmonary embolism; staple line leak; bleeding; GERD; cardiac, pulmonary, or renal complications; as well as long-term problems such as insufficient weight loss, vitamin deficiency, strictures, or ulcers. The patient understood all the risks, and was in agreement to proceed with surgery. DESCRIPTION OF PROCEDURE: After informed consent was obtained from the patient, the patient was given preoperative antibiotics, and was transferred to the operating room. After successful induction of general anesthesia, pneumatic compression devices were placed on both lower extremities. An upper endoscopy was performed next. The oropharynx and esophagus appeared to be within normal limits. There was no diaphragmatic hernia present consistent with the findings of the preoperative upper GI. The stomach was entered. Then after all fluid and air were suctioned and the stomach was fully decompressed, the scope was withdrawn and secured in the mid esophagus. The patient was then prepped and draped in the usual sterile manner, and abdominal access was established at the right upper quadrant with the Christine technique. A 12 mm blunt port was inserted, and the abdomen was insufflated with CO2 to a pressure of 15 mmHg. Under direct visualization, additional ports were placed, specifically two 5 mm Versi-step ports to the left upper quadrant, and a 5 mm Versi-Step port to the right upper quadrant. 1% lidocaine plain was used to infiltrate all port sites as well as all fascia defects. There were adhesions in the abdomen from previous tubal ligation involving the omentum and the anterior abdominal wall. Those were not lysed as they did not interfere with our surgery.. Following that, the patient was placed in a steep reverse Trendelenburg position. An additional 5 mm port was placed to the right flank for the Mediflex retractor that was used to retract the left lobe of the liver. The gastro-esophageal fat pad was opened with the ultrasonic device (Thunderbeat, Olympus) and the anterior esophagus and hiatus were exposed. The angle of His was opened with the ultrasonic device the fundus of the stomach from any diaphragmatic and splenic attachments. I then opened the gastrocolic ligament between the transverse colon and the greater curvature of the stomach with the ultrasonic device to enter the lesser sac and facilitate the ligation of the short gastric vessels. I started at a mid-point along the greater curvature and using the Thunderbeat, all short gastric vessels were divided all the way to the angle of His until the left kanika was completely dissected at its entirety. I then divided the gastro-colic ligament distally to a distance of about 3-4 cm proximal to the pylorus. There were extensive congenital adhesions between the pancreas and posterior gastric wall. Those were lysed completely with the ultrasonic device. Adhesiolysis took approximately 45 min to complete. The stomach was then divided transversely with one Endo JUAN-45 purple, one JUAN-45 orange load and four JUAN-60 articulating orange loads using the AEON stapler and loads. Every effort was made that the gastric sleeve had a tubular shape and an even caliber throughout. Once the sleeve resection was completed, the staple line of the gastric sleeve was reinforced with Hemoclips. The resected stomach was retrieved without difficulty from the Christine port. A gastropexy was then performed in order to prevent postoperative GERD and partial gastric volvulus. Several interrupted 2.0 Surgidac sutures were placed between the sleeve's staple line and the previously divided greater omentum and gastro-colic ligament using the Endo-Stitch device. ?An upper endoscopy was performed. There was no narrowing at the GE junction. The scope was easily advanced all the way to the pylorus which was clearly visualized. There was no narrowing anywhere and the sleeve's caliber was even throughout. The sleeve's staple line was inspected and there was no evidence of ischemia, bleeding or dehiscence. At that point the gastroscope was withdrawn from the patient?s mouth while we were decompressing the bowel and the stomach from any remaining air. I looked into the lesser sac to see how the sleeve was situating and it was situating well. There was no bleeding from the staple line, spleen, or short gastric vessels. The Mediflex retractor was removed, and the undersurface of the liver was inspected and there was no bleeding. The patient was placed in supine position. I closed the fascial defect of the 12 mm port site with a figure of eight #1 Polysorb suture. Then 100 cc 0.25 % Marcaine plain with 10 mg of Dexamethasone were used to infiltrate the fascial closure as well as all skin incisions. At this point, the abdomen was deflated, all ports were removed under direct vision, and no bleeding was noted from any of the port sites. The skin incisions were irrigated with saline and were closed with 4-0 absorbable monofilament sutures. Steri-Strips and OpSites were used to cover all incisions. The patient was extubated and was transferred in stable condition to the recovery room for further care. I was present and performed all villa parts of the procedure. Mr. Gee was the first grade teacher. There were no residents to assist with this case. Luis Alberto Gillespie MD, PhD, FACS Surgeon: Juan Gillespie MD Anesthesia: GETA, local and other (TAP block and 7ml of Zynrelef) Was an Printing Supervisor used for this Procedure?: Yes Printing Supervisor: Bryant Gee Estimated blood loss (mL): 10 IV fluids (mL): 2,800 Urine output (mL): 0 Pathology: other (Stomach) Condition: stable Disposition: PACU
[2021-09-02] MEDS: Famotidine/PF 20 MG/2 ML VIAL IVPUSH ×2 (11:03→20:10)
--- NOTE | 2021-09-02 11:07 | PM.PNGS ---
Subjective Subjective Date of Service: 09/03/21 Interval history: Patient has mild incisional pain, but was able to ambulate and use the incentive spirometer. She is tolerating phase 1 bariatric diet Physical Exam Vital Signs: Vital Signs: Last Vital Signs Temp 97.7 F 09/02/21 10:33 Pulse 79 09/02/21 10:48 Resp 15 09/02/21 10:48 BP 123/71 09/02/21 10:48 Pulse Ox 95 09/02/21 10:48 BMI result Body Mass Index 43.2 GI: Inspection: Yes normal to inspection, Yes incision (clean, dry and intact) and Yes obesity Extrem: Right lower extremity: normal to inspection (no calf tenderness) Left lower extremity: normal to inspection (no calf tenderness) Objective Data Active Medications Albuterol Sulfate (Albuterol Sulfate (0.083%) 2.5 Mg/3 Ml Vial.Neb) 2.5 mg INHALE ONCE PRN PRN Reason: Shortness of Breath/Wheezing Albuterol Sulfate (Albuterol Sulfate (0.083%) 2.5 Mg/3 Ml Vial.Neb) 2.5 mg INHALE ONCE PRN PRN Reason: Wheezing Famotidine (Famotidine/Pf 20 Mg/2 Ml Vial) 20 mg IVPUSH BID KATHY Fentanyl (Fentanyl Citrate/Pf 100 Mcg/2 Ml Vial) 50 mcg IVPUSH Q5M PRN; Protocol PRN Reason: Pain, Severe (Pain Scale 7-10) Fentanyl (Fentanyl Citrate/Pf 100 Mcg/2 Ml Vial) 25 mcg IVPUSH Q5M PRN; Protocol PRN Reason: Pain, Moderate (Pain Scale 4-6 Hydromorphone HCl (Hydromorphone Hcl 0.5 Mg/0.5 Ml Syringe) 0.25 mg IVPUSH Q5M PRN; Protocol PRN Reason: Pain, Severe (Pain Scale 7-10) Lactated Ringer's (Lr) 1,000 mls @ 100 mls/hr IVCONT .Q10H KATHY Promethazine HCl 6.25 mg/ (Sodium Chloride) 50.25 mls @ 201 mls/hr IV ONCE PRN PRN Reason: Nausea and Vomiting Metoclopramide HCl (Metoclopramide Hcl 10 Mg/2 Ml Vial) 10 mg IVPUSH Q6H PRN PRN Reason: Nausea Ondansetron HCl (Ondansetron Hcl 4 Mg/2 Ml Vial) 4 mg IVPUSH ONCE PRN PRN Reason: Nausea and Vomiting Oxycodone HCl (Oxycodone Hcl Immed Release 5 Mg Tablet) 10 mg PO ONCE PRN PRN Reason: Pain, Severe (Pain Scale 7-10) Oxycodone HCl (Oxycodone Hcl Immed Release 5 Mg Tablet) 5 mg PO ONCE PRN PRN Reason: Pain, Severe (Pain Scale 7-10) Labs CBC & Chem 7: 09/03/21 05:26 09/03/21 05:26 Labs: Laboratory Results - last 24 hr 09/01/21 12:45 COVID-19 (LYNN) Negative COVID-19 Clin Com See Note Procedures Date of Service Date of Service: 09/03/21 Progress Note: A&P Assessment and plan (1) Morbid obesity due to excess calories: Status: Acute Assessment and Plan: s/p laparoscopic sleeve gastrectomy, lysis of adhesions and gastropexy Doing well Check am labs. If OK, will discharge home? (2) HELIO (obstructive sleep apnea): Status: Acute (3) Insomnia: Status: Acute (4) DJD (degenerative joint disease): Status: Acute (5) Asthma: Status: Acute (6) Generalized anxiety disorder: Status: Acute (7) S/P laparoscopic sleeve gastrectomy: Status: Acute (8) Migraine: Status: Acute (9) Steatosis, liver: Status: Acute (10) Intra-abdominal adhesions: Status: Acute (11) Congenital intra-abdominal adhesions: Status: Acute Time Spent With Patient Time: Total time spent is greater than 50% in coordination of care (as documented) at patient's floor/unit and/or counseling patient: Quality Stroke Does the patient have a stroke diagnosis?: No VTE Prior VTE?: No VTE Risk Level:: Surgical - moderate VTE Device Contraindication: N/A - Device Ordered VTE Drug Contraindication: Treatment Not Indicated
[2021-09-02 11:14] LABS: Anion Gap 13 (12-20); Blood Urea Nitrogen 7 mg/dL (9-16); Calcium 8.9 mg/dL (8.4-10.2); Carbon Dioxide 22 mmol/L (22-29); Chloride 107 mmol/L (96-108); Creatinine Clr Calc Pharmacy 105.1; Estimated Glomerular Filt Rate > 60; Glucose Random 173 mg/dL (60-115); Potassium 4.3 mmol/L (3.3-5.1); Sodium 138 mmol/L (135-145)
[2021-09-02] MEDS: HYDROmorphone HCl 0.5 MG/0.5 ML SYRINGE 0.25 MG IVPUSH ×2 (11:28→23:00)
[2021-09-02] MEDS: Lactated Ringers 1,000 ML 100 ML IVCONT ×2 (12:25→22:50)
[2021-09-02] MEDS: ceFAZolin Sodium/Dextrose,Iso 2 GM/50 ML PIGGYBACK IV (13:32)
[2021-09-02] MEDS: Metoclopramide HCl 10 MG/2 ML VIAL IVPUSH ×2 (16:41→23:03)
[2021-09-02] MEDS: 0.9 % Sodium Chloride Flush 3 ML SYRINGE IVFLUSH (20:10)
[2021-09-02] MEDS: ondansetron HCL 4 MG/2 ML VIAL IVPUSH (20:10)
[2021-09-03 04:00] VITALS: BP 139/71; PULSE 84; RESP 16; TEMP 36.6; O2SAT 94
[2021-09-03] MEDS: ondansetron HCL 4 MG/2 ML VIAL IVPUSH (05:25)
[2021-09-03 05:41] LABS: MANUAL DIFF FLAG NO
[2021-09-03 05:44] LABS: Basophils Percent Auto 0.1 % (0-2); Hematocrit 36.1 % (37.0-47.0); Hemoglobin 11.7 g/dl (12.0-16.0); Imm Gran Abs Auto 0.06 X10*3/uL (0.00-0.03); Imm Gran Pct Auto 0.5 % (0.0-0.4); Lymphocytes Absolute Auto 1.3 X10*3/uL (1.2-4.9); Lymphocytes Percent Auto 10.7 % (20-40); Mean Corpuscular HGB Conc 32.4 g/dl (31.0-35.0); Mean Corpuscular Hemoglobin 28.2 pg (27.0-33.0); Mean Platelet Volume 12.4 fL (9.4-12.3); Monocytes Absolute Auto 0.9 X10*3/uL (0.1-1.2); Monocytes Percent Auto 7.2 % (2-11); Neutrophils Absolute Auto 9.6 x10*3/uL (2.0-8.3); Neutrophils Percent Auto 81.5 % (45-73); Platelet Count 212 X10*3/uL (160-400); Red Blood Count 4.15 X10*6/uL (4.20-5.50); Red Cell Distribution Width 14.3 % (11.0-16.0); White Blood Count 11.8 X10*3/uL (4.8-10.8)
[2021-09-03 06:02] LABS: Anion Gap 12 (12-20); Blood Urea Nitrogen 7 mg/dL (9-16); Calcium 9.3 mg/dL (8.4-10.2); Carbon Dioxide 23 mmol/L (22-29); Chloride 103 mmol/L (96-108); Creatinine Clr Calc Pharmacy 112.3; Estimated Glomerular Filt Rate > 60; Glucose Random 112 mg/dL (60-115); Potassium 4.1 mmol/L (3.3-5.1); Sodium 134 mmol/L (135-145)
--- NOTE | 2021-09-03 06:54 | HO.POSTANES ---
Post Anesthesia Evaluation Post Anesthesia Evaluation Vital Signs: Vital Signs Temp Pulse Resp BP Pulse Ox 09/03/21 04:00 98 F 84 16 139/71 94 09/02/21 23:43 98.7 F 91 16 113/60 95 09/02/21 19:27 98.9 F 77 17 146/92 H 99 Anesthesia: General Endotracheal-GETA Mental Status: Awake Pain Control: Satisfactory Nausea/Vomiting: None Hydration: Adequate Anesthesia-Related Issues: No Anes. Related Issues
[2021-09-03 07:27] VITALS: BP 164/90; PULSE 71; RESP 18; TEMP 36.4; O2SAT 95
--- NOTE | 2021-09-03 08:42 | MHC.CM.PN ---
IMM 09/03/21, PT S/P LAP SLEEVE GASTRECTOMY, CM MET W/PT WHO REPORTS SHE LIVES W/ AND TWO OH HER CHILDREN, PT WORKING FOR [employer], INDEP W/ALL CARE, USES A CPAP FOR DME AND NO HOME SERVICES, PT VERIFIES PCP IS [facility], COVID VACCINATED X2 (DOES NOT RECALL WHICH VACCINE OR HAVE CARD), PT EDUCATED ON HCP'S AND DECLINES AT THIS TIME. D/C PLAN: HOME TODAY SELF-CARE, FAMILY FOR TRANSPORT
== END 2021-09-03 10:05 | disposition home or self-care (01) | DRG 403 ==
LOC: HO.SSSA 10:38 → HO.S3 12:08
PROVIDERS: Physician Assistant Surgical; Admitting Provider Surgery; PCP Hospitalist; Visit Provider Surgery
PROC: 0DB64Z3 Excision of Stomach, Percutaneous Endoscopic Approach, Vertical (ICD-10-PCS; CPT 43845; principal; 2021-09-02 07:30)
DX: E66.01 Morbid (severe) obesity due to excess calories (principal); K76.0 Fatty (change of) liver, not elsewhere classified; F32.A Depression, unspecified; M19.90 Unspecified osteoarthritis, unspecified site; G43.909 Migraine, unspecified, not intractable, without status migrainosus; F41.9 Anxiety disorder, unspecified; G47.33 Obstructive sleep apnea (adult) (pediatric); Z20.822 Contact with and (suspected) exposure to COVID-19; G47.00 Insomnia, unspecified; Z98.51 Tubal ligation status; Z68.41 Body mass index [BMI] 40.0-44.9, adult; Z88.8 Allergy status to other drugs, medicaments and biological substances; Z79.51 Long term (current) use of inhaled steroids; Z79.899 Other long term (current) drug therapy
CPT/HCPCS: 36415; 80048; 80053; 80061; 83036; 83525; 84443; 85014; 85018; 85025; 85610; 85730; 86140; 86850; 86900; 86901; 87635; 88307; 88342; 99024; A4649; C9088; J0131; J0690; J1100; J1170; J2250; J2405; J2550; J2765; J3010

== ENCOUNTER → 2021-09-07 14:07 | Outpatient (BNVA) | payer OTHER, SELFPAY | PROVIDERS: PCP Hospitalist; Referring Provider Hospitalist; Visit Provider Physician Assistant Surgical | DX: Z48.815 Encounter for surgical aftercare following surgery on the digestive system (principal); Z98.84 Bariatric surgery status | CPT/HCPCS: 99212 ==

== ENCOUNTER → 2022-02-01 11:24 | Outpatient (BNVA) | payer OTHER, SELFPAY | PROVIDERS: PCP Hospitalist; Visit Provider Physician Assistant Surgical | DX: E66.9 Obesity, unspecified (principal); Z68.30 Body mass index [BMI] 30.0-30.9, adult; Z98.84 Bariatric surgery status | CPT/HCPCS: 99212 ==

== ENCOUNTER 2022-03-04 11:21 | Emergency (ER) | payer OTHER, SELFPAY ==
--- NOTE | ~2022-03-04 | XR_ITS ---
EXAMINATION: XR SHOULDER, RIGHT CLINICAL INFORMATION: Right shoulder pain. No known injury. COMPARISON: Right shoulder radiographs 09/15/2016 TECHNIQUE: Right shoulder is imaged in 3 views. FINDINGS: No fracture, dislocation, destructive process. The glenohumeral joint appears normal. The acromioclavicular alignment is normal. There are mild degenerative changes acromioclavicular joint. There is mild spurring from the superior lateral acromium likely related to the origin deltoid. No visible rotator cuff calcifications. XR/XR shoulder RT min 2V IMPRESSION: 1. Mild degenerative changes acromioclavicular joint. 2. Mild spurring superior lateral acromium likely related to origin deltoid. 3. No visible rotator cuff calcifications.
[2022-03-04 12:13] VITALS: BP 161/86; PULSE 69; RESP 18; TEMP 36.2; O2SAT 99; BMI 30.1
--- NOTE | 2022-03-04 12:13 | ED.EXTPRO ---
HPI - Extremity Problem General Chief complaint: Extremity Injury, Upper <Domenica Tian CNP - Last Filed: 03/04/22 12:19> Stated complaint: shoulder pain, no injury <Domenica Tian CNP - Last Filed: 03/04/22 12:19> Time Seen by Provider: 03/04/22 12:19 <Domenica Tian CNP - Last Filed: 03/04/22 12:19> Source: patient <Christianne Pineda NP - Last Filed: 03/04/22 16:14> Mode of arrival: ambulatory <JAMIN Balderas Last Filed: 03/04/22 16:14> Limitations: no limitations <Christianne Pineda NP - Last Filed: 03/04/22 16:14> History of Present Illness HPI Narrative: 46 yo female right hand dominant here with right shoulder pain x 1 week with no injury or trauma known now with worsening pain over last 2 days. No associated weakness, numbness, tingling. 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, <JAMIN Balderas Last Filed: 03/04/22 16:14> Related Data Home medications: Home Medications Medication Instructions Recorded Confirmed multivitamin (Daily Multi-Vitamin 1 tab PO DAILY 02/01/22 02/01/22 tablet) Previous Rx's Medication Instructions Recorded cetirizine 10 mg tablet (All Day 10 mg PO DAILY PRN allergy 01/25/21 Allergy (cetirizine)) symptoms #90 tabs pantoprazole 40 mg tablet,delayed 40 mg PO DAILY #30 tabs 08/18/21 release sucralfate 100 mg/mL oral 10 ml PO BID #400 mL 08/18/21 suspension cyclobenzaprine 10 mg tablet 10 mg PO TID PRN muscle spasm #10 03/04/22 tabs <Domenica Tian CNP - Last Filed: 03/04/22 12:19> Allergies/Adverse reactions: Allergies Allergy/AdvReac Type Severity Reaction Status Date / Time trazodone [TRAZODONE] Allergy Intermediate OVER Verified 02/01/22 11:37 SEDATION, tachycardia <Domenica Tian CNP - Last Filed: 03/04/22 12:19> Review of Systems Review of Systems: Yes all other systems are reviewed and are negative <Christianne Pineda NP - Last Filed: 03/04/22 16:14> Constitutional: Constitutional: Reports no additional constitutional complaints, Denies body ache(s), Denies chills, Denies fever(s), Denies headache(s) and Denies weakness <Christianne Pineda NP - Last Filed: 03/04/22 16:14> Eyes: Eyes: Reports no additional eye complaints and Denies change in vision <Christianne Pineda NP - Last Filed: 03/04/22 16:14> ENT: Reports system reviewed and no additional complaints, except as documented, Denies dizziness, Denies headache(s), Denies nasal congestion, Denies nasal discharge and Denies neck pain <Christianne Pineda NP - Last Filed: 03/04/22 16:14> Cardiovascular: Cardiovascular: Reports no additional cardiovascular complaints, Denies chest pain, Denies leg edema and Denies dyspnea <Christianne Pineda NP - Last Filed: 03/04/22 16:14> Respiratory: Respiratory: Reports no additional respiratory complaints, Denies cough and Denies dyspnea <Christianne Pineda NP - Last Filed: 03/04/22 16:14> Gastrointestinal: Gastrointestinal: Reports no additional gastrointestinal complaints, Denies abdominal pain, Denies diarrhea, Denies nausea and Denies vomiting <Christianne Pineda NP - Last Filed: 03/04/22 16:14> Genitourinary: Genitourinary: Reports no additional female genitourinary complaints and Denies urinary incontinence <Christianne Pineda NP - Last Filed: 03/04/22 16:14> Musculoskeletal: Musculoskeletal: Reports no additional musculoskeletal complaints, Denies back pain, Reports arthralgias, Reports joint swelling, Denies neck pain, Denies numbness and Denies tingling <Christianne Pineda NP - Last Filed: 03/04/22 16:14> Integumentary/Breasts: Skin/Breast: Reports system reviewed and no additional complaints, except as docu and Denies rash <Christianne Pineda NP - Last Filed: 03/04/22 16:14> Neurologic: Reports system reviewed and no additional complaints, except as documented, Denies Abnormal speech present, Denies dizziness, Denies headache(s), Denies numbness, Denies tingling and Denies weakness <Christianne Pineda NP - Last Filed: 03/04/22 16:14> FOR[facility]LY [facility] Past Medical History Attestation statement: The following information was validated with the patient. <Christianne Pineda NP - Last Filed: 03/04/22 16:14> Source: old records reviewed and nursing notes reviewed <Christianne Pineda NP - Last Filed: 03/04/22 16:14> Medical History: Medical History Asthma DJD (degenerative joint disease) Headache History of anxiety History of depression Insomnia HELIO (obstructive sleep apnea) Steatosis, liver <Domenica Tian CNP - Last Filed: 03/04/22 12:19> Surgical History: Surgical History H/O tubal ligation S/P laparoscopic sleeve gastrectomy <Domenica Tian CNP - Last Filed: 03/04/22 12:19> Family History Family History: Family History Mother No problems noted. Father No problems noted. <Domenica Tian CNP - Last Filed: 03/04/22 12:19> Social History Social History: Social History Housing: House Are you a primary daycare worker to a significant other at home: No Do you presently have visiting nurse or other home services: No Alcohol intake: never Patient Tobacco Use Status: Never used Tobacco e-Cigarette/Vaping Use: Never Used Second Hand Smoke Exposure: No Advance Directives: No Advance Directives Information Provided: No service: No Current occupational status: employed Cognitive needs: No Hearing needs: No Vision needs: Yes (Glasses) <Domenica Tian CNP - Last Filed: 03/04/22 12:19> Physical Exam Vital Signs: Vital Signs: Last Vital Signs Temp 97.1 F 03/04/22 12:13 Pulse 69 03/04/22 12:13 Resp 18 03/04/22 12:13 BP 161/86 H 03/04/22 12:13 Pulse Ox 99 03/04/22 12:13 O2 Del Method 03/04/22 12:13 BMI result Body Mass Index 30.1 <Domenica Tian [facility] - Last Filed: 03/04/22 12:19> Vital Signs: Last Vital Signs Temp 97.1 F 03/04/22 12:13 Pulse 69 03/04/22 12:13 Resp 18 03/04/22 12:13 BP 161/86 H 03/04/22 12:13 Pulse Ox 99 03/04/22 12:13 O2 Del Method 03/04/22 12:13 BMI result Body Mass Index 30.1 <Christianne Pineda NP - Last Filed: 03/04/22 16:14> Const: General: cooperative, healthy appearing, comfortable and no acute distress <Christianne Pineda NP - Last Filed: 03/04/22 16:14> Orientation/consciousness: patient oriented x3 <Christianne Pineda NP - Last Filed: 03/04/22 16:14> Limitations: no limitations <Christianne Pineda NP - Last Filed: 03/04/22 16:14> HEENT: Head: Yes normal to inspection <Christianne Pineda NP - Last Filed: 03/04/22 16:14> Ears: hearing grossly normal bilaterally <Christianne Pineda NP - Last Filed: 03/04/22 16:14> General nose exam: Normal external nose present <Christianne Pineda NP - Last Filed: 03/04/22 16:14> Face and sinus: Yes normal facial exam <Christianne Pineda NP - Last Filed: 03/04/22 16:14> Mouth: Normal oral and palatal mucosa present <Christianne Pineda NP - Last Filed: 03/04/22 16:14> Throat: Yes posterior oropharynx normal <Christianne Pineda NP - Last Filed: 03/04/22 16:14> Eyes: General: appearance normal, both eyes and all related structures <Christianne Pineda NP - Last Filed: 03/04/22 16:14> Pupils: Equal, round and reactive pupils present <Christianne Pineda NP - Last Filed: 03/04/22 16:14> Neck: Neck: Yes normal visual inspection <Christianne Pineda EAR[employer] MOVING TECHNICIAN - Last Filed: 03/04/22 16:14> Chest: Chest palpation & inspection: normal inspection of the chest <Christianne Pineda EARTH MOVING TECHNICIAN - Last Filed: 03/04/22 16:14> Resp: Effort & Inspection: normal respiratory effort <Christianne Pineda NP - Last Filed: 03/04/22 16:14> Auscultation: clear to auscultation bilaterally <Christianne Pineda NP - Last Filed: 03/04/22 16:14> Cardio: Rate: regular rate <Christianne Pineda NP - Last Filed: 03/04/22 16:14> Rhythm: regular rhythm <Christianne Pineda EARTH MOVING TECHNICIAN - Last Filed: 03/04/22 16:14> Peripheral pulses: Peripheral pulses 2+ throughout <Christianne Pineda EARTH MOVING TECHNICIAN - Last Filed: 03/04/22 16:14> GI: Inspection: Yes normal to inspection <Christianne Pineda NP - Last Filed: 03/04/22 16:14> Palpation (GI): Soft to palpation and nontender <Christianne Pineda EARTH MOVING TECHNICIAN - Last Filed: 03/04/22 16:14> Auscultation: normal bowel sounds <Christianne Pineda NP - Last Filed: 03/04/22 16:14> Back/Spine/Pelvis: Thoracic/Lumbar Spine: thoracic and lumbar spine normal to inspection <Christianne Pineda NP - Last Filed: 03/04/22 16:14> Skin: General skin exam: no rashes or lesions noted <Christianne Pineda NP - Last Filed: 03/04/22 16:14> Neuro: General: patient oriented x3, no focal motor deficits and normal sensation to monofilament <Christianne Pineda NP - Last Filed: 03/04/22 16:14> Cranial nerves: Yes Equal, round and reactive pupils present <Christianne Pineda NP - Last Filed: 03/04/22 16:14> Cognition (Neuro): normal cognition <Christianne Pineda NP - Last Filed: 03/04/22 16:14> Speech: No Abnormal speech present <Christianne Pineda NP - Last Filed: 03/04/22 16:14> Gait exam (Neuro): Normal gait present <Christianne Pineda NP - Last Filed: 03/04/22 16:14> Motor exam (neuro): 5/5 motor strength present throughout <Christianne Pineda NP - Last Filed: 03/04/22 16:14> Extrem: Other: To the right trapezius there is tenderness with palpable muscle spasm which is radiates to the right proximal humerus with compression ad worsened with abduction of the RUE. 5/5 strength in RUE Normal sensation 2+ radial/ulnar pulses <Christianne Pineda NP - Last Filed: 03/04/22 16:14> General: Yes normal to inspection <Christianne Pineda NP - Last Filed: 03/04/22 16:14> Course Course Course Narrative: RME: Patient is a 46-year-old female presenting for evaluation of R shoulder and arm pain. Onset of symptoms 1 week ago, pain worsening over past 2 days. States she has arthritis in this shoulder, but pain has never been this bad. Trialed Tylenol, ibuprofen, lidocaine patch without any improvement. Denies numbness or tingling, denies any precipitating injury. PE: Mild decreased AROM, neurovascularly intact distally Plan: XR the right shoulder, ibuprofen for pain <Domenica Tian CNP - Last Filed: 03/04/22 12:19> Reevaluation(s) Reevaluation #1: IMPRESSION: 1. Mild degenerative changes acromioclavicular joint. 2. Mild spurring superior lateral acromium likely related to origin deltoid. 3. No visible rotator cuff calcifications. ? Recommend NSAID, muscle relaxant, heat or ice, gentle stretching Reviewed worrisome signs/symptoms with patient and when to seek additional care. Comfortable with dischare home <Christianne Pineda NP - Last Filed: 03/04/22 16:14> Medications Administered Discontinued Medications Generic Name Dose Route Start Last Admin Trade Name Freq PRN Reason Stop Dose Admin Ibuprofen 600 mg 03/04/22 12:16 03/04/22 12:25 Ibuprofen 600 Mg Tablet PO 03/04/22 12:17 600 mg ONCE ONE Administration <Domenica Tian CNP - Last Filed: 03/04/22 12:19> Medications Administered Discontinued Medications Generic Name Dose Route Start Last Admin Trade Name Freq PRN Reason Stop Dose Admin Ibuprofen 600 mg 03/04/22 12:16 03/04/22 12:25 Ibuprofen 600 Mg Tablet PO 03/04/22 12:17 600 mg ONCE ONE Administration <Christianne Pineda NP - Last Filed: 03/04/22 16:14> MDM - Extremity (Nontraumatic) MDM Narrative Medical decision making narrative: 46 yo female right hand dominant here with right shoulder pain x 1 week which is atraumatic. Works at a job which requires lifting, movement which is repetitive. will check x-rays. Considered strain, sprain, OA, tendonitis. <Christianne Pineda NP - Last Filed: 03/04/22 16:14> Medical Records Attestation: I reviewed the patient's medical records. <Christianne Pineda NP - Last Filed: 03/04/22 16:14> Lab Data Attestation: I reviewed the patient's lab results. <Christianne Pineda NP - Last Filed: 03/04/22 16:14> Imaging Data shoulder x-ray: Attestation: I personally reviewed and interpreted this imaging study as follows: <Christianne Pineda NP - Last Filed: 03/04/22 16:14> Radiologist's impression: Launch?Image [address] [address] XRay Report Signed Patient: Jessi Trent MR#: [id number] : 1975 Acct:[id number] Age/Sex: 46 / F ADM Date: 03/04/22 Loc: HO.ED Attending Dr: Ordering Physician: Domenica Tian CNP Date of Service: 03/04/22 Procedure(s): XR shoulder RT min 2V Accession Number(s): [id number] cc: Domenica Tian CNP~ EXAMINATION: XR SHOULDER, RIGHT CLINICAL INFORMATION: Right shoulder pain. No known injury. COMPARISON: Right shoulder radiographs 09/15/2016? TECHNIQUE: Right shoulder is imaged in 3 views. FINDINGS: No fracture, dislocation, destructive process. The glenohumeral joint appears normal. The acromioclavicular alignment is normal. There are mild degenerative changes acromioclavicular joint. There is mild spurring from the superior lateral acromium likely related to the origin deltoid. No visible rotator cuff calcifications.? XR/XR shoulder RT min 2V IMPRESSION: 1. Mild degenerative changes acromioclavicular joint. 2. Mild spurring superior lateral acromium likely related to origin deltoid. 3. No visible rotator cuff calcifications. ? <Christianne Pineda NP - Last Filed: 03/04/22 16:14> Discharge Plan Discharge Clinical Impression: Osteoarthritis of shoulder, Muscle spasm <Domenica Tian CNP - Last Filed: 03/04/22 12:19> Patient Disposition: Home, Self-Care <Domenica Tian CNP - Last Filed: 03/04/22 12:19> Instructions: Osteoarthritis (ED), Muscle Spasm (ED) <Domenica Tian CNP - Last Filed: 03/04/22 12:19> Additional Instructions: heat to the area gentle stretching follow up with pcp or orthopedics continue motrin/tylenol <Domenica Tian CNP - Last Filed: 03/04/22 12:19> Prescriptions: New cyclobenzaprine 10 mg tablet 10 mg PO TID PRN (Reason: muscle spasm) Qty: 10 0RF No Action cetirizine [All Day Allergy (cetirizine)] 10 mg tablet 10 mg PO DAILY PRN (Reason: allergy symptoms) Qty: 90 1RF multivitamin [Daily Multi-Vitamin] Tablet 1 tab PO DAILY pantoprazole 40 mg tablet,delayed release (DR/EC) 40 mg PO DAILY Qty: 30 2RF sucralfate 100 mg/mL suspension 10 ml PO BID Qty: 400 2RF <Domenica Tian CNP - Last Filed: 03/04/22 12:19> Referrals: [facility] [place] Group] Masha Sanchez, EARTH MOVING TECHNICIAN [Primary Care Provider] - 1 week <Domenica Tian CNP - Last Filed: 03/04/22 12:19> Stand Alone Forms: Work/School Release <Domenica Tian CNP - Last Filed: 03/04/22 12:19> Interventions: ED Discharge Assessment Last Done: 03/04/22 13:27 <Domenica Tian CNP - Last Filed: 03/04/22 12:19> Discharge Date/Time: 03/04/22 13:40 <Domenica Tian CNP - Last Filed: 03/04/22 12:19>
[2022-03-04] MEDS: Ibuprofen 600 MG TABLET PO (12:25)
== END 2022-03-04 13:40 | disposition home or self-care (01) ==
LOC: HO.ED 13:31
PROVIDERS: Emergency Provider Emergency Medicine Emergency Medical Services; PCP Hospitalist
DX: M19.011 Primary osteoarthritis, right shoulder (principal); M62.838 Other muscle spasm; M25.511 Pain in right shoulder
CPT/HCPCS: 73030; 99283

== ENCOUNTER → 2022-03-07 09:14 | Outpatient (BNVA) | payer OTHER, SELFPAY | PROVIDERS: PCP Hospitalist; Referring Provider Hospitalist; Visit Provider Internal Medicine | DX: R94.39 Abnormal result of other cardiovascular function study (principal) | CPT/HCPCS: 99212 ==

== ENCOUNTER 2022-03-10 08:22 | Outpatient (REF) | payer OTHER, SELFPAY ==
[2022-03-10 08:47] LABS: MANUAL DIFF FLAG NO
[2022-03-10 09:25] LABS: Basophils Percent Auto 0.6 % (0-2); Eosinophils Absolute Auto 0.1 X10*3/uL (0.0-0.4); Eosinophils Percent Auto 1.7 % (0-4); Hematocrit 40.6 % (37.0-47.0); Hemoglobin 13.1 g/dl (12.0-16.0); Imm Gran Abs Auto 0.01 X10*3/uL (0.00-0.03); Imm Gran Pct Auto 0.2 % (0.0-0.4); Lymphocytes Absolute Auto 2.3 X10*3/uL (1.2-4.9); Lymphocytes Percent Auto 43.4 % (20-40); Mean Corpuscular HGB Conc 32.3 g/dl (31.0-35.0); Mean Corpuscular Hemoglobin 28.5 pg (27.0-33.0); Mean Corpuscular Volume 88.5 fL (80.0-98.0); Mean Platelet Volume 12.5 fL (9.4-12.3); Monocytes Absolute Auto 0.4 X10*3/uL (0.1-1.2); Monocytes Percent Auto 7.7 % (2-11); Neutrophils Absolute Auto 2.4 x10*3/uL (2.0-8.3); Neutrophils Percent Auto 46.4 % (45-73); Platelet Count 229 X10*3/uL (160-400); Red Blood Count 4.59 X10*6/uL (4.20-5.50); Red Cell Distribution Width 14.2 % (11.0-16.0); White Blood Count 5.2 X10*3/uL (4.8-10.8)
[2022-03-10 09:35] LABS: Estimated Average Glucose 97 mg/dL
[2022-03-10 10:17] LABS: Alanine Aminotransferase 14 U/L (0-31); Albumin Level 4.1 g/dL (3.5-5.0); Alkaline Phosphatase 79 U/L (39-117); Aspartate Amino Transferase 13 U/L (5-31); Bilirubin Total 0.4 mg/dL (0.0-1.0); Blood Urea Nitrogen 15 mg/dL (9-16); C Reactive Protein 0.44 mg/dL (< or = 0.50); Calcium 9.8 mg/dL (8.4-10.2); Cholesterol 184 mg/dL; Estimated Glomerular Filt Rate > 60; Ferritin 15 ng/mL (10-250); Glucose Random 80 mg/dL (60-115); HDL Cholesterol 47 mg/dL; Insulin 6 uU/mL (2-29); Iron 81 mcg/dL (30-160); LDL Cholesterol Calculated 111 mg/dl; Percent Iron Saturation 27 % (15-50); TSH reflex Free T4 2.25 uIU/mL (0.32-4.0); Total Iron Binding Capacity 297 mcg/dL (228-428); Total Protein 7.4 g/dL (6.5-8.0); Triglycerides 130 mg/dL; Unsaturated Iron Binding 216 ug/dL; Vitamin D 25-OH Total 38.1 ng/mL (>30)
[2022-03-10 10:20] LABS: Folate 14.5 ng/mL (> or = 4.0); Vitamin B12 693 pg/mL (200-900)
[2022-03-10 10:27] LABS: Anion Gap 14 (12-20); Carbon Dioxide 26 mmol/L (22-29); Chloride 106 mmol/L (96-108); Potassium 4.1 mmol/L (3.3-5.1); Sodium 142 mmol/L (135-145)
[2022-03-13 15:39] LABS: PTHI 64 pg/mL (16-77)
[2022-03-15 06:19] LABS: Zinc 112 mcg/dL (60-130)
[2022-03-15 14:48] LABS: Vitamin B1 16 nmol/L (8-30)
[2022-03-16 09:28] LABS: Vitamin A 42 mcg/dL (38-98)
== END 2022-03-10 08:23 | disposition home or self-care (01) ==
LOC: HO.LAB 08:22
PROVIDERS: PCP Hospitalist; Visit Provider Physician Assistant Surgical
DX: Z98.84 Bariatric surgery status (principal)
CPT/HCPCS: 36415; 80053; 80061; 82306; 82607; 82728; 82746; 83036; 83525; 83540; 83970; 84425; 84443; 84590; 84630; 85025; 86140

== ENCOUNTER → 2022-03-15 11:16 | Outpatient (BNVA) | payer OTHER, SELFPAY | PROVIDERS: PCP Hospitalist; Visit Provider Physician Assistant Surgical | DX: E66.3 Overweight (principal); Z98.84 Bariatric surgery status; Z68.29 Body mass index [BMI] 29.0-29.9, adult | CPT/HCPCS: 99212 ==

== ENCOUNTER → 2022-04-01 11:01 | Outpatient (BNVA) | payer OTHER, SELFPAY | PROVIDERS: PCP Hospitalist; Visit Provider Physician Assistant | DX: M75.81 Other shoulder lesions, right shoulder (principal); M75.80 Other shoulder lesions, unspecified shoulder; M19.011 Primary osteoarthritis, right shoulder; F41.8 Other specified anxiety disorders | CPT/HCPCS: 99202 ==

== ENCOUNTER → 2022-06-24 09:52 | Outpatient (BNVA) | payer OTHER, SELFPAY | PROVIDERS: PCP Hospitalist; Visit Provider Physician Assistant Surgical | DX: E66.3 Overweight (principal); Z98.84 Bariatric surgery status; Z68.29 Body mass index [BMI] 29.0-29.9, adult | CPT/HCPCS: 99212 ==

== ENCOUNTER 2024-01-23 10:18 | Outpatient (AMB) | payer OTHER, SELFPAY ==
--- NOTE | 2024-01-23 10:22 | MHC.OFFVISWM ---
VS Expanded 01/23/24 10:27 BP 151/89 H Blood Pressure Location Rt brachial Blood Pressure Position Sitting Pulse 77 Pulse Source Pulse Oximeter Temp 98.1 F Temperature Source Temporal Artery Scan Pulse Oximetry 97 Oxygen Delivery Method Room Air Height 5 ft 3 in Weight 190 lb 12.8 oz BMI 33.8 Body Fat % 41.8 Body Fat Mass 79.8 Fat Free Mass 110.8 Visceral Fat Rating 10.0 Body Water % 41.4 Body Water Mass 79.0 Muscle Mass/Score 105.4 Basal Metabolic Rate/Score 1,540 Intake Visit Reasons: (OV) PO LSG 09/02/21 Allergies trazodone [TRAZODONE] Allergy (Intermediate, Verified 06/24/22 09:58) OVER SEDATION, tachycardia Medication List - Last Reconciled 01/23/24 by CYNTHIA Tomas cetirizine (All Day Allergy (cetirizine)) 10 mg PO DAILY PRN clotrimazole 1% 1 appl topical BID multivitamin (Daily Multi-Vitamin tablet) 1 tab PO DAILY pantoprazole 40 mg PO DAILY PRN HPI Comments Details: This?is a?48?yo female who is s/p LSG 09/02/2021. Presents for 2 year 5 month post op visit. 24.8lb weight gain since last OV 06/2022.? No complaints of nausea, emesis, reflux, or constipation. Admits some stress eating. Occasional pain with solids. Was diagnosed with pituitary problems, levels being monitored. Present meal plan includes: none Exercise routine includes: none Pt reports ongoing problems with excess skin of abdomen. She gets rashes in belly button which are painful. Has to keep very clean and dry to prevent. Using clotrimazole cream which helps somewhat but does not completely resolve the rashes. Has to wear compressive pants to hold skin in place and prevent irritation; cannot wear certain pants like jeans as they will rub the skin and irritate it. Excess skin feels very heavy and uncomfortable. FOR[facility]LY [facility] Medical History (Updated 04/01/22 @ 11:46 by Shasha Richardson PA-C) Osteoarthritis of acromioclavicular joint Steatosis, liver History of depression History of anxiety Headache DJD (degenerative joint disease) Insomnia HELIO (obstructive sleep apnea) Asthma Surgical History Hx of cervical polypectomy S/P laparoscopic sleeve gastrectomy H/O tubal ligation Family History Mother No problems noted. Father No problems noted. 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 Current occupational exposures/hazards: No Cognitive needs: No Hearing needs: No Vision needs: Yes (Glasses) Physical Exam Vital Signs: Last Vital Signs Temp 98.1 F 01/23/24 10:27 Pulse 77 01/23/24 10:27 BP 151/89 H 01/23/24 10:27 Pulse Ox 97 01/23/24 10:27 Oxygen Delivery Method Room Air 01/23/24 10:27 BMI result Body Mass Index 33.8 Assessment & Plan Assessment & Plan (1) Obesity: Code(s): E66.9 - Obesity, unspecified Category: Medical (2) S/P laparoscopic sleeve gastrectomy: Comment: 09/02/21 Code(s): Z98.84 - Bariatric surgery status Category: Surgical Plan New meal plan: breakfast- Isopure 1 scoop in 8oz water lunch- Pure protein bar snack- Isopure 1 scoop in 8oz water dinner- 4f/f if hungry- half bar, or egg, or 1oz protein, or fruit/veg Labs ordered. RTC 8 weeks, encouraged pt to text me between visits with any questions. Pt has ongoing rashes of excess skin of abdomen and has discomfort from the excess skin which makes activities of daily living more difficult. Continue clotrimazole ointment. I spent a total of 30 minutes reviewing/updating records, examining the patient and counseling the patient on weight management as detailed above. Orders: Orders H Pylori Breath Test Today Z98.84 - Bariatric surgery status Lipid Panel Today Z98.84 - Bariatric surgery status Vitamin B12 and Folate Today Z98.84 - Bariatric surgery status C Reactive Protein Today Z98.84 - Bariatric surgery status Vitamin A Today Z98.84 - Bariatric surgery status TSH reflex Free T4 Today Z98.84 - Bariatric surgery status Ferritin Today Z98.84 - Bariatric surgery status Insulin Today Z98.84 - Bariatric surgery status Hemoglobin A1c Today Z98.84 - Bariatric surgery status Complete Blood Count Auto Diff Today Z98.84 - Bariatric surgery status IRON PROFILE Today Z98.84 - Bariatric surgery status Comprehensive Met. Panel Today Z98.84 - Bariatric surgery status Zinc Today Z98.84 - Bariatric surgery status Vitamin B1 Today Z98.84 - Bariatric surgery status Vitamin D 25-OH Total Today Z98.84 - Bariatric surgery status
[2024-01-23 10:27] VITALS: BP 151/89; PULSE 77; TEMP 36.7; O2SAT 97; BMI 33.8
== END 2024-01-23 11:10 | disposition home or self-care (01) ==
PROVIDERS: PCP Hospitalist; Visit Provider Physician Assistant Surgical
DX: E66.811 Obesity, class 1 (principal); Z68.33 Body mass index [BMI] 33.0-33.9, adult; Z90.3 Acquired absence of stomach [part of]; Z98.84 Bariatric surgery status
CPT/HCPCS: 99214

== ENCOUNTER → 2024-01-23 10:18 | Outpatient (BNVA) | payer OTHER, SELFPAY | PROVIDERS: PCP Hospitalist; Visit Provider Physician Assistant Surgical | DX: E66.9 Obesity, unspecified (principal); Z98.84 Bariatric surgery status; Z68.33 Body mass index [BMI] 33.0-33.9, adult | CPT/HCPCS: 99212 ==

== ENCOUNTER 2024-03-25 08:25 | Outpatient (REF) | payer OTHER, SELFPAY ==
[2024-03-25 08:43] LABS: MANUAL DIFF FLAG NO
[2024-03-25 09:33] LABS: Basophils Percent Auto 0.4 % (0-2); Eosinophils Absolute Auto 0.1 X10*3/uL (0.0-0.4); Eosinophils Percent Auto 2.1 % (0-4); Hematocrit 40.9 % (37.0-47.0); Hemoglobin 13.2 g/dl (12.0-16.0); Imm Gran Abs Auto 0.02 X10*3/uL (0.00-0.03); Imm Gran Pct Auto 0.4 % (0.0-0.4); Lymphocytes Absolute Auto 1.5 X10*3/uL (1.2-4.9); Lymphocytes Percent Auto 31.8 % (20-40); Mean Corpuscular HGB Conc 32.3 g/dl (31.0-35.0); Mean Corpuscular Hemoglobin 28.3 pg (27.0-33.0); Mean Corpuscular Volume 87.6 fL (80.0-98.0); Monocytes Absolute Auto 0.4 X10*3/uL (0.1-1.2); Neutrophils Absolute Auto 2.6 x10*3/uL (2.0-8.3); Neutrophils Percent Auto 56.3 % (45-73); Platelet Count 231 X10*3/uL (160-400); Red Blood Count 4.67 X10*6/uL (4.20-5.50); Red Cell Distribution Width 14.6 % (11.0-16.0); White Blood Count 4.7 X10*3/uL (4.8-10.8)
[2024-03-25 09:43] LABS: Estimated Average Glucose 108 mg/dL; Hemoglobin A1C 125.3133 umol/L; Hemoglobin A1c % 5.4 % (<6.0); Total Hemoglobin (HGBA1C) 3487.5017 umol/L
[2024-03-25 10:31] LABS: Alanine Aminotransferase 23 U/L (0-31); Albumin Level 3.9 g/dL (3.5-5.0); Alkaline Phosphatase 94 U/L (39-117); Anion Gap 11 (12-20); Aspartate Amino Transferase 23 U/L (5-31); Bilirubin Total 0.3 mg/dL (0.0-1.0); Blood Urea Nitrogen 13 mg/dL (9-16); C Reactive Protein 0.62 mg/dL (< or = 0.50); Calcium 9.3 mg/dL (8.4-10.2); Carbon Dioxide 26 mmol/L (22-29); Chloride 109 mmol/L (96-108); Cholesterol 199 mg/dL (<200); Estimated Glomerular Filt Rate > 60; Glucose Random 91 mg/dL (60-115); HDL Cholesterol 57 mg/dL (>40); Iron 160 mcg/dL (30-160); LDL Cholesterol Calculated 126 mg/dL (<100); Percent Iron Saturation 47 % (15-50); Potassium 3.9 mmol/L (3.3-5.1); Sodium 142 mmol/L (135-145); Total Iron Binding Capacity 339 mcg/dL (228-428); Total Protein 7.9 g/dL (6.5-8.0); Triglycerides 83 mg/dL (<150); Unsaturated Iron Binding 179 ug/dL
[2024-03-25 10:33] LABS: Ferritin 15 ng/mL (10-250); TSH reflex Free T4 2.05 uIU/mL (0.32-4.0)
[2024-03-25 10:35] LABS: Folate 13.9 ng/mL (> or = 4.0); Vitamin B12 691 pg/mL (200-900)
[2024-03-25 12:05] LABS: Insulin 9 uU/mL (2-29)
[2024-03-30 17:03] LABS: Vitamin B1 32 nmol/L (8-30)
[2024-03-30 20:08] LABS: Vitamin A 48 mcg/dL (38-98)
== END 2024-03-25 08:26 | disposition home or self-care (01) ==
LOC: HO.LAB 08:25
PROVIDERS: PCP Internal Medicine; Visit Provider Physician Assistant Surgical
DX: Z98.84 Bariatric surgery status (principal)
CPT/HCPCS: 36415; 80053; 80061; 82306; 82607; 82728; 82746; 83036; 83525; 83540; 84425; 84443; 84590; 84630; 85025; 86140

== ENCOUNTER → 2024-04-22 13:10 | Outpatient (BNVA) | payer OTHER, SELFPAY | PROVIDERS: PCP Internal Medicine; Visit Provider Physician Assistant Surgical ==

== ENCOUNTER 2024-07-18 11:38 | Emergency (ER) | payer OTHER, SELFPAY ==
--- NOTE | ~2024-07-18 | XR_ITS ---
EXAMINATION: XR ABDOMEN SUPINE AND ERECT WITH CHEST (ABD ACUTE SERIES) HISTORY: RUQ, flank chest wall pain, rule out obs/ hernia COMPARISON: There are no prior studies for comparison. FINDINGS: Supine and upright views of the abdomen are submitted. The bowel gas pattern is unremarkable, without evidence of mechanical obstruction. There is no free intraperitoneal gas. There is a large amount of stool throughout the colon. Multiple surgical clips are noted in the left upper quadrant. No abnormal calcifications are identified. There are no abnormal soft tissue masses. There is degenerative disc disease of the spine. XR/XR acute abdomen series IMPRESSION: Large amount of stool throughout the colon. Electronically signed by: Cisco Knowles MD 07/18/2024 03:03 PM EDT
[2024-07-18 11:41] VITALS: BP 149/86; PULSE 83; RESP 18; TEMP 36.6; O2SAT 99; BMI 34.6
--- NOTE | 2024-07-18 11:42 | ED_ITS ---
HPI - General Adult General Chief complaint: Abdominal Pain Stated complaint: R side pain Time Seen by Provider: 07/18/24 14:03 Source: patient, RN notes reviewed and old records reviewed History of Present Illness ED Provider: Mona Holm PA-C HPI narrative: Patient seeks medical attention in the ED today for evaluation of right sided chest wall/abd pain that started yesterday. She noticed it randomly yesterday after twisting but denies any known trauma. It was reproducible when she went to go lay down at nighttime and every time that she turned over. It is not made worse by deep breaths in or by eating. She denies feeling nauseous she has not had any vomiting or diarrhea. In fact she reports chronic history of constipation for several years now but never addressed with her primary care. Reports at baseline only having a bowel movement every few days ago that his stool like. She also has history of hemorrhoids but no bright red blood per rectum. She does have plans to follow up with this with her primary care provider. Her OBGYN is the 1 who discussed her hemorrhoids with her during a gynecological exam this past January but did not offer her any treatment. She denies any rectal pressure pain or bleeding. Patient is without any symptoms such as dysuria urgency frequency flank pain or retention. No history of kidney stones. Pain is not colicky. She denies any falls or trauma. She has not feel short she is not endorsing any chest discomfort or shortness of breath with ambulation either. She has not noticed any rashes to the area. Reports it as a paresthesia like sensation that does not radiate.She has not tried to relieve pain with anything. No sore throat, coughing, nasal congestion, fevers chills sweats night sweats or unintentional weight loss. No EtOH use. PMH significant for gastric sleeve surgery (09/02/2021) and GERD on pantoprazole. Last OV on 01/23/24 rev'd: she denied reflux and constipation at that time.Did not go to her follow up which was planned 8 weeks from this visit. Related Data Home Medications ?Medication ?Instructions ?Recorded ?Confirmed multivitamin (Daily Multi-Vitamin 1 tab PO DAILY 02/01/22 01/23/24 tablet) pantoprazole 40 mg tablet,delayed 40 mg PO DAILY PRN 03/15/22 01/23/24 release Previous Rx's ?Medication ?Instructions ?Recorded cetirizine 10 mg tablet (All Day 10 mg PO DAILY PRN allergy 01/25/21 Allergy (cetirizine)) symptoms #90 tabs clotrimazole 1 % topical cream 1 appl topical BID #45 grams 03/15/22 hydrocortisone 2.5 % topical cream 1 appl MO BEDTIME PRN hemorrhoids 07/18/24 with perineal applicator #30 grams (Anusol-HC) magnesium citrate 150 ml PO DAILY PRN constipation 07/18/24 #296 mL Allergies Allergy/AdvReac Type Severity Reaction Status Date / Time trazodone [TRAZODONE] Allergy Intermediate OVER Verified 07/18/24 11:44 SEDATION, tachycardia Review of Systems 2 Review of Systems: Yes all other systems are reviewed and are negative PMFSH Past Medical History Attestation statement: The following information was validated with the patient. Source: old records reviewed and nursing notes reviewed Medical History Osteoarthritis of acromioclavicular joint Steatosis, liver History of depression History of anxiety Headache DJD (degenerative joint disease) Insomnia HELIO (obstructive sleep apnea) Asthma Surgical History Hx of cervical polypectomy S/P laparoscopic sleeve gastrectomy H/O tubal ligation Family History Family History Mother No problems noted. Father No problems noted. 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 Current occupational exposures/hazards: No Cognitive needs: No Hearing needs: No Vision needs: Yes (Glasses) Physical Exam ED Vital Signs: Vital Signs - 24 hr 07/18/24 11:41 07/18/24 13:48 Temperature 97.9 F 97.5 F Pulse Rate 83 80 Respiratory Rate 18 18 Blood Pressure 149/86 H 143/83 H Pulse Oximetry 99 99 Oxygen Delivery Method Room Air Room Air BMI result Body Mass Index 34.6 Const General: cooperative, healthy appearing, comfortable, no acute distress, well developed, alert, awake and Physically active Nutritional Appearance: obese Orientation/consciousness: patient oriented x3 Limitations: no limitations HENMT Head: Yes normal to inspection Ears: hearing grossly normal bilaterally General nose exam: Normal external nose present Face and sinus: Yes normal facial exam Mouth: Normal oral and palatal mucosa present, oropharynx normal and moist mucous membranes Throat: Yes posterior oropharynx normal Eyes Periorbital: periorbital findings normal Eyelids: Yes eyelids normal Conjunctivae: conjunctivae normal Sclerae: sclerae normal Neck Neck: Yes normal visual inspection, Yes full ROM and Yes no lymphadenopathy Lymphatic: no lymphadenopathy noted Chest Other: Chest wall is without any lesions in his nontender pain is only reproducible with left lateral lumbar flexion at the level of the right axillary muscles Chest palpation & inspection: normal inspection of the chest Resp Effort & Inspection: normal respiratory effort and able to speak in complete sentences Auscultation: clear to auscultation bilaterally Cardio Jugular venous distension: no JVD Rate: regular rate Rhythm: regular rhythm Peripheral pulses: Peripheral pulses 2+ throughout GI Inspection: Yes normal to inspection and Yes Abdominal panniculus present Auscultation: normal bowel sounds Rectal Exam - Female: External hemorrhoid(s) present (In the 9 o'clock position grape sized external hemorrhoid noted nontender ) and hemorrhoids (out patient therapist present during rectal exam) Neuro General: patient oriented x3 Course Course Course Narrative: This is a Rapid Medical Exam performed in triage by Amy Melendrez PA-C. Full HPI, ROS and PE to be performed by primary ED provider. 48 y/o F with PMHx presenting to the ED c/o R side pain x 2 days. Reports initially R lower back pain, now localized to R side only. Denies N/V/D. Reports able to urinate, last BM yesterday. Denies cough, SOB, CP, dysuria, hematuria, trauma to area. PE: ttp to R lower back/side pain, nontoxic appearing, ambulating well without assistance Plan: CBC, CMP, urine, SARs Medical Decision Making Medical Decision Making [facility] Narrative: Well appearing 48 y/o F here for what she reported was right sided abd pain in CC however its in area of right axillary rib region. Pain is not pleuritic or exertional, area is not tender and abdomen is nontender as well. Pain reproduced with trunk stretching only. No food associated. Not likely PTX, ACS, or PE. PERC score is 0, PE can be ruled out clinically. Abdominal labs drawn. Not likely hepatobiliary disease, but considered. Labs reassuring. Could be an early presentation for shingles, but no rash present, will defer antivirals. Atypical presentation for body aches limited to one area, but COVID and FLU still considered and negative. Hx of gastric sleeve, not likely but will obtain abd series to rule out potential SBO given surgical hx. Imaging without evidence for this. Chronic hemorrhoids and constipation address; no rectal bleed- will address and advise GI follow up, return precautions given. No infectious sxs today concerning for viral or bacterial URI. No skin lesions or hx of injuries concerning for rib fractures other chest trauma. ML musculoskeletal etiology. I have advised on OTC care and gave patients reasons to return to ED. She demonstrated verbal understanding of the plan and was in agreement, she was d/c to home stable. Differential Diagnosis Differential Diagnoses: The differential diagnosis associated with the presentation includes See above Admission/Observation Consideration of admission/observation: Escalation of care including admission/observation considered Patient would have been admitted to the hospital had her work up and clinical presentation had any findings where hospital admission was appropriate. Lab Data [facility] Lab Attestation statement: I reviewed the patient's lab results. 07/18/24 12:17 07/18/24 12:17 Labs: Lab Results 07/18/24 07/18/24 Range/Units 12:17 13:51 WBC 7.0 (4.8-10.8) X10*3/uL RBC 4.37 (4.20-5.50) X10*6/uL Hgb 12.4 (12.0-16.0) g/dl Hct 37.1 (37.0-47.0) % MCV 84.9 (80.0-98.0) fL MCH 28.4 (27.0-33.0) pg MCHC 33.4 (31.0-35.0) g/dl RDW 14.8 (11.0-16.0) % Plt Count 231 (160-400) X10*3/uL MPV 11.3 (9.4-12.3) fL Immature Gran % (Auto) 0.3 (0.0-0.4) % Neut % (Auto) 58.3 (45-73) % Lymph % (Auto) 29.3 (20-40) % Mck[place] % (Auto) 9.9 (2-11) % Eos % (Auto) 1.6 (0-4) % Baso % (Auto) 0.6 (0-2) % Lymph # (Auto) 2.1 (1.2-4.9) X10*3/uL [place] # (Auto) 0.7 (0.1-1.2) X10*3/uL Eos # (Auto) 0.1 (0.0-0.4) X10*3/uL Baso # (Auto) 0.0 (0.0-0.2) X10*3/uL Abs Immat Gran (auto) 0.02 (0.00-0.03) X10*3/uL Absolute Neuts (auto) 4.1 (2.0-8.3) x10*3/uL Absolute Nucleated RBC 0.000 (0.0-0.012) X10*3/uL Nucleated RBC % (auto) 0.0 (0.0-0.2) /100WBC Sodium 140 (135-145) mmol/L Potassium 3.9 (3.3-5.1) mmol/L Chloride 108 (96-108) mmol/L Carbon Dioxide 26 (22-29) mmol/L Anion Gap 10 L (12-20) BUN 12 (9-16) mg/dL Creatinine 0.66 (0.5-1.4) mg/dL Estim Creat Clear Calc 108.9 Estimated GFR > 60 Random Glucose 84 (60-115) mg/dL Calcium 9.0 (8.4-10.2) mg/dL Total Bilirubin 0.2 (0.0-1.0) mg/dL AST 20 (5-31) U/L ALT 13 (0-31) U/L Alkaline Phosphatase 83 (39-117) U/L Total Protein 7.4 (6.5-8.0) g/dL Albumin 3.7 (3.5-5.0) g/dL Urine Color Yellow Urine Appearance Clear Urine pH 6.5 (5.0-9.0) Ur Specific [place] 1.010 (1.005-1.025) Urine Protein Negative (Neg-Trace) mg/dL Urine Glucose (UA) Negative (Negative) mg/dL Urine Ketones Negative (Negative) mg/dL Urine Blood Negative (Negative) Urine Nitrite Negative (Negative) Ur Leukocyte Esterase Negative (Negative) Urine RBC 0-2 (0-2) /HPF Urine WBC 0-5 (0-5) /HPF Ur Squamous Epith Cells 11-20 (0-2) /HPF Urine Bacteria 1+ (None Seen) Hyaline Casts 0-2 (0-2) /LPF Influenza Type A (PCR) NEGATIVE (Negative) Influenza Type B (PCR) NEGATIVE (Negative) RSV RNA Qual (PCR) NEGATIVE (Negative) SARS-CoV-2 RNA (RT-PCR) NEGATIVE (Negative) Independent Interpretation I performed an independent interpretation of an: Plain X-Ray Interpretation: No SBO. Moderate stool burden Radiology Impression Discussion of test interpretation with radiology: I have reviewed the radiologist's reading. External Record Review External record reviewed: Office record Tests considered The following testing was considered but not selected: Gallbladder U/S: negative murphys no food associations, no peritoneal signs and abdomen nontender CT abd/pelvis: would have considered for tender abdomen and if there were signs of liver or metabolic dysfunction or leukocytosis. Prescription Management I considered prescription management with: Pain Medication, Antiviral and Antibiotic Discharge Plan Discharge Clinical Impression: Abdominal pain, Constipation, External hemorrhoid Patient Disposition: Home, Self-Care Instructions: Hemorrhoids (ED), Muscle Strain (ED), Abdominal Pain (ED) Additional Instructions: You were seen emergency department today due to some abdominal discomfort. He has a known chronic history of constipation. And physical exam today her abdomen is nontender LEs concerning for hepatobiliary disease. Your labs show no evidence of leukocytosis meaning less concerning for inflammation or infection. He had no electrolyte imbalance or kidney dysfunction. We do have a significant amount of stool burden on imaging which is consistent with her known history of constipation. Essentially medicine to help with this it is also imperative you follow-up with gastroenterology as you have a chronic appearing grape sized hemorrhoid on the outside. I have given him medication to help with this. A daily fiber intake of 20 to 25 g/day is generally recommended.? The effects of fiber on bowel movements may take several weeks. Bloating and flatulence is a common problem with increased fiber intake. General measures such as increased fluid intake and exercise are suggested to treat constipation. Timed toilet training consists of attempting a bowel movement at least twice a day, usually 30 minutes after meals, and to strain for no more than five minutes. Bathroom measures include: sitting up, leaning forward and raising the feet 8 to 12 inches above the ground. First line treatments are bulk forming laxatives and are available over the counter such as: metamucil, citrucel, Fibercon. These laxatives are effective in increasing the frequency and softening the consistency of stool with a minimum of adverse effects. They may be used alone or in combination with an increase in dietary fiber. Second line is Osmotic laxatives if not responding to bulk laxatives. Examples of these are miralax, and milk of magnesia.? Stool softeners (docusate), suppositories (glycerin or bisacodyl), and enemas, although widely used, have limited clinical efficacy. If all else fails and no bowel movement in one week, increased pain or abdominal distention, go to ER immediately. Prescriptions: New hydrocortisone [Anusol-HC] 2.5 % cream with perineal applicator 1 appl MO BEDTIME PRN (Reason: hemorrhoids) Qty: 30 0RF magnesium citrate Solution 150 ml PO DAILY PRN (Reason: constipation) Qty: 296 0RF No Action cetirizine [All Day Allergy (cetirizine)] 10 mg tablet 10 mg PO DAILY PRN (Reason: allergy symptoms) Qty: 90 1RF multivitamin [Daily Multi-Vitamin] Tablet 1 tab PO DAILY pantoprazole 40 mg tablet,delayed release (DR/EC) 40 mg PO DAILY PRN clotrimazole 1 % cream 1 appl topical BID Qty: 45 3RF Referrals: [facility] [place] [facility] [Provider Group] Stand Alone Forms: Work/School Release Interventions: ED Discharge Assessment Last Done: 07/18/24 15:13 Discharge Date/Time: 07/18/24 15:13 Print Language: Maori
[2024-07-18 12:20] LABS: MANUAL DIFF FLAG NO
[2024-07-18 12:22] LABS: Basophils Percent Auto 0.6 % (0-2); Eosinophils Absolute Auto 0.1 X10*3/uL (0.0-0.4); Eosinophils Percent Auto 1.6 % (0-4); Hematocrit 37.1 % (37.0-47.0); Hemoglobin 12.4 g/dl (12.0-16.0); Imm Gran Abs Auto 0.02 X10*3/uL (0.00-0.03); Imm Gran Pct Auto 0.3 % (0.0-0.4); Lymphocytes Absolute Auto 2.1 X10*3/uL (1.2-4.9); Lymphocytes Percent Auto 29.3 % (20-40); Mean Corpuscular HGB Conc 33.4 g/dl (31.0-35.0); Mean Corpuscular Hemoglobin 28.4 pg (27.0-33.0); Mean Corpuscular Volume 84.9 fL (80.0-98.0); Mean Platelet Volume 11.3 fL (9.4-12.3); Monocytes Absolute Auto 0.7 X10*3/uL (0.1-1.2); Monocytes Percent Auto 9.9 % (2-11); Neutrophils Absolute Auto 4.1 x10*3/uL (2.0-8.3); Neutrophils Percent Auto 58.3 % (45-73); Platelet Count 231 X10*3/uL (160-400); Red Blood Count 4.37 X10*6/uL (4.20-5.50); Red Cell Distribution Width 14.8 % (11.0-16.0)
[2024-07-18 12:36] LABS: Alanine Aminotransferase 13 U/L (0-31); Albumin Level 3.7 g/dL (3.5-5.0); Alkaline Phosphatase 83 U/L (39-117); Anion Gap 10 (12-20); Aspartate Amino Transferase 20 U/L (5-31); Bilirubin Total 0.2 mg/dL (0.0-1.0); Blood Urea Nitrogen 12 mg/dL (9-16); Carbon Dioxide 26 mmol/L (22-29); Chloride 108 mmol/L (96-108); Creatinine Clr Calc Pharmacy 108.9; Estimated Glomerular Filt Rate > 60; Glucose Random 84 mg/dL (60-115); Potassium 3.9 mmol/L (3.3-5.1); Sodium 140 mmol/L (135-145); Total Protein 7.4 g/dL (6.5-8.0)
[2024-07-18 13:01] LABS: Influenza A PCR NEGATIVE (Negative); Influenza B PCR NEGATIVE (Negative); Resp Syncy Virus RNA Qual PCR NEGATIVE (Negative); SARS COV2 PCR INHOUSE NEGATIVE (Negative)
[2024-07-18 13:48] VITALS: BP 143/83; PULSE 80; RESP 18; TEMP 36.4; O2SAT 99
[2024-07-18 13:57] LABS: Appearance Urine Clear; Color Urine Yellow; Glucose Urine UA Negative (Negative); Leukocyte Esterase Urine Negative (Negative); Nitrite Urine Negative (Negative); PH 6.5 (5.0-9.0); Urine Blood Negative (Negative); Urine Ketones Negative (Negative); Urine Protein Negative (Neg-Trace)
[2024-07-18 13:59] LABS: Bacteria Urine 1+ (None Seen); Hyaline Casts Urine 0-2 /LPF (0-2); RBC Urine 0-2 /HPF (0-2); WBC Urine 0-5 /HPF (0-5)
[2024-07-18 15:07] VITALS: BP 142/92; PULSE 83; RESP 18; TEMP 36.4; O2SAT 99
[2024-07-18 15:13] VITALS: BP 142/92; PULSE 83; RESP 18; TEMP 36.4; O2SAT 99
--- OUTSIDE RECORDS SUMMARY | 2024-07-18 17:07 | XMS_ITS | Clinical Summary ---
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 Name Role Phone Wendy Silva MD Primary Care Provider [phone] Encounters Date Type Department Care Team Description 05/17/2024 11:20 AM EST - 05/17/2024 11:59 PM EST Hospital Encounter Radiology Department - [address] [phone] Encounter for screening mammogram for malignant neoplasm of breast Discharge Disposition: Home or Self Care 05/17/2024 9:47 AM EST - 05/17/2024 11:59 PM EST Hospital Encounter Radiology Department - [address] [phone] Hyperprolactinemia (CMS/HCC V24) Discharge Disposition: Home or Self Care from Last 3 Months Surgical History Surgery Date Site/Laterality Comments GASTRIC BYPASS 08/2021 PROCEDURE: [place] GASTRIC RSTCV W/BYP W/SM INT RCNSTJ LIMIT ABSRPJ; COMMENT: Gastric Sleeve TUBAL LIGATION PROCEDURE: HISTORICAL TUBAL LIGATION Medical History Medical History Date Comments Mild intermittent asthma, uncomplicated DX:Mild intermittent asthma, uncomplicated Anxiety disorder DX:Anxiety diso rder Acid reflux DX:Acid reflux Migraine DX:Migraine Family History Medical History Relation Name Comments Breast cancer Aunt Alcohol abuse Father Pancreatic cancer Maternal Grandmother Hypertension Mother Hyperthyroidism Mother Other: hepatitis c Mother From bloo d transfusion Colon cancer Neg Hx Ovarian cancer Neg Hx Uterine cancer Neg Hx Relation Name Status Comments Aunt Alive Father Maternal Grandmother Mother Social History Tobacco Use Types Packs/Day Years Used Date Smoking Tobacco: Never Smokeless Tobacco: Never Alcohol Use Standard Drinks/Week Comments Not Currently 0 (1 standard drink = 0.6 oz pur e alcohol) Comments Unknown Sex and Gender Information Value Date Recorded Sex Assigned at Not on file Legal Sex Female 1:04 PM EDT Gender Identity Not on file Sexual Orientation Not on file Obstetrics History Para Term AB IAB SAB Ectopic Multiple Livin g Live Births 6 6 6 6 Date Outcome GA Total Labor Labor/2nd/3rd Weight Sex Type Anes PTL Ginna A1 A5 Name Clin Term Term Term Term Term Term Last Filed Vital Signs Vital Sign Reading Time Taken Comments Blood Pressure 121/82 02/02/2024 2:08 PM EDT Pulse 70 02/02/2024 2:08 PM EDT Temperature - - Respiratory Rate - - Oxygen Saturation - - Inhaled Oxygen Concentration - - Weight 88 kg (194 lb) 02/02/2024 2:08 PM EDT Height 160 cm (5' 3 ) 02/02/2024 2:08 PM EDT Body Mass Index 34.37 02/02/2024 2:08 PM EDT Plan of Treatment Health Maintenance Due Date Last Done Comments DTaP,Tdap,and Td Vaccines (1 - Tdap) 1993 Hepatitis B Vaccines (1 of 3 - 19+ 3-dose series) 1993 Colorectal Cancer Screening: Colonoscopy 12/21/2021 Depression Screening 12/21/2021 HIV Screening 12/21/2021 Hepatitis C Screening 12/21/2021 Social Influencers of Health Screening 12/21/2021 COVID-19 Vaccine (3 - 2023-2 5 season) 2023 11/02/2020, 09/26/2020 Cervical Cancer Screening: P ap Smear 09/28/2024 09/28/2021 Influenza Vaccine (Season Ended) 2024 02/23/2015, 02/19/2014 Breast Cancer Screening 05/17/2026 05/17/19, 05/03/2023, 04/28/2022 HIB Vaccines Aged Out No longer eligi ble based on patient's age to complete this topic HPV Vaccines Aged Out No longer eligi ble based on patient's age to complete this topic Hepatitis A Vaccines Aged Out No long er eligible based on patient's age to complete this topic IPV Vaccines Aged Out No longer eligi ble based on patient's age to complete this topic MMR Vaccines Aged Out No longer eligi ble based on patient's age to complete this topic Meningococcal ACWY Vaccine Aged Out N o longer eligible based on patient's age to complete this topic Meningococcal B Vaccine Aged Out No l onger eligible based on patient's age to complete this topic Pneumococcal Vaccine: Pediatrics (0 to 5 Years) and At-Risk Patients (6 to 64 Years) Aged Out No longer eligible b ased on patient's age to complete this topic RSV Immunization Patients Under 20 months Aged Out No longer eligible b ased on patient's age to complete this topic Varicella Vaccines Aged Out No longer eligible based on patient's age to complete this topic Procedures Procedure Name Priority Date/Time Associated Diagnosis Comments MG MAMMO DIGITAL SCREENING BILAT Routine 05/17/2024 11:36 AM EST Encounter for screening mammogram for malignant neoplasm of breast MR BRAIN WO AND W CONTRAST Routine 05/17/2024 10:52 AM EST Hyperprolactinemia ([facility] V24) PAP SMEAR Routine 09/28/2021 from Last 3 Months or Most Recently Relevant to Health Maintenance Results * MG Mammo Digital Screening bilat (05/17/2024 11:36 AM EST) Anatomical Region Laterality Modality Breast Bilateral Mammography 05/17/2024 1:19 PM EST Impressions 05/17/2024 1:37 PM EST No mammographic evidence for malignancy. BI-RADS CATEGORY: 1 - NEGATIVE RECOMMENDATION: Screening bilateral mammogram is recommended in 1 year. Mammo Location: [facility], [address] [place] [address], [id number], . -------- FINAL REPORT -------- Dictated By: Latosha Montana Dictated Date: 05/17/2024 13:19 ET Assigned Physician: Latosha Montana Reviewed and Electronically Signed By: Latosha Montana Signed Date: 05/17/2024 13:37 ET Workstation ID: [id number] Transcribed By: Self Edit Transcribed Date: 05/17/2024 13:19 ET Narrative 05/17/2024 1:37 PM EST Bilateral screening mammogram. CLINICAL: 48 years old, Female, routine annual exam. COMPARISON: Prior mammograms, latest from 05/03/2023. ?? TECHNIQUE: Bilateral MLO and CC views were obtained digitally with 2-D C views and 3-D mammogram (digital breast tomosynthesis). Computer-aided detection was utilized in evaluation of this exam (CAD). FINDINGS: There is no evidence of suspicious mass or architectural distortion. ??No worrisome calcifications are evident. ??There has been no significant change from prior exam(s). ?? BREAST DENSITY: C - The breasts are heterogeneously dense which may obscure small masses. Procedure Note Latosha Montana MD - 05/17/2024 Bilateral screening mammogram. CLINICAL: 48 years old, Female, routine annual exam. COMPARISON: Prior mammograms, latest from 05/03/2023. TECHNIQUE: Bilateral MLO and CC views were obtained digitally with 2-D Cviews and 3-D mammogram (digital breast tomosynthesis). Computer-aideddetection was utilized in evaluation of this exam (CAD). FINDINGS: There is no evidence of suspicious mass or architectural distortion. Noworrisome calcifications are evident. There has been no significantchange from prior exam(s). BREAST DENSITY: C - The breasts are heterogeneously dense which mayobscure small masses. IMPRESSION: No mammographic evidence for malignancy. BI-RADS CATEGORY: 1 - NEGATIVE RECOMMENDATION: Screening bilateral mammogram is recommended in 1 year. Mammo Location: [facility], [address] [place] [address], [address], . -------- FINAL REPORT -------- Dictated By: Latosha Montana Dictated Date: 05/17/2024 13:19 ET Assigned Physician: Latosha Montana Reviewed and Electronically Signed By: Latosha Montana Signed Date: 05/17/2024 13:37 ET Workstation ID: [id number] Transcribed By: Self Edit Transcribed Date: 05/17/2024 13:19 ET us Wendy Silva MD IMG BI PROCEDURES Final Result * MR Brain wo and w Contrast (05/17/2024 10:52 AM EST) Anatomical Region Laterality Modality Head and Neck Magnetic Resonan ce 05/17/2024 11:0 9 AM EST Impressions 05/17/2024 11:37 AM EST 6 x 6 x 6 mm pituitary microadenoma, unchanged. Stable mild white matter disease. Chronic sinusitis, this has progressed since the previous study. -------- FINAL REPORT -------- Dictated By: Yoly Lal Dictated Date: 05/17/2024 11:09 ET Assigned Physician: Yoly Lal Reviewed and Electronically Signed By: Yoly Lal Signed Date: 05/17/2024 11:37 ET Workstation ID: [id number] Transcribed By: Self Edit Transcribed Date: 05/17/2024 11:09 ET Narrative 05/17/2024 11:37 AM EST MR BRAIN WO AND W CONTRAST MRI BRAIN/PITUITARY WITH AND WITHOUT CONTRAST HISTORY: ??Hyperprolactinemia. COMPARISON: Brain MRI 01/03/2024, 11/22/2022, and 11/15/2021. Technique: MRI of the brain without and with contrast was completed using the pituitary microadenoma protocol. [15] cc of IV Dotarem was administered to the patient. FINDINGS: The pituitary infundibulum is midline. ??The pituitary gland demonstrates normal size. ??Dynamic post contrast images through the pituitary gland demonstrate a 6 x 6 x 6 mm lesion of delayed enhancement in the right side of the pituitary gland. The infundibulum is midline. The optic chiasm is unremarkable. There are T2/FLAIR hyperintensities scattered in the subcortical, deep, and periventricular white matter bilaterally, not significantly changed The ventricles and sulci are normal in size and symmetric. There is no acute intracranial hemorrhage or acute infarct. There is no mass effect or midline shift. There is no abnormal parenchymal enhancement. There are no intra or extra-axial fluid collections seen. There is membrane thickening of the bilateral ethmoid air cells. There is mild membrane thickening of the right maxillary sinus and extensive membrane thickening of the left maxillary sinus. The paranasal sinuses and mastoid air cells are otherwise clear. Procedure Note Yoly Lal MD - 05/17/2024 MR BRAIN WO AND W CONTRAST MRI BRAIN/PITUITARY WITH AND WITHOUT CONTRAST HISTORY: Hyperprolactinemia. COMPARISON: Brain MRI 01/03/2024, 11/22/2022, and 11/15/2021. Technique: MRI of the brain without and with contrast was completed usingthe pituitary microadenoma protocol. [15] cc of IV Dotarem wasadministered to the patient. FINDINGS: The pituitary infundibulum is midline. The pituitary glanddemonstrates normal size. Dynamic post contrast images through thepituitary gland demonstrate a 6 x 6 x 6 mm lesion of delayed enhancementin the right side of the pituitary gland. The infundibulum is midline. Theoptic chiasm is unremarkable. There are T2/FLAIR hyperintensities scattered in the subcortical, deep,and periventricular white matter bilaterally, not significantly changed The ventricles and sulci are normal in size and symmetric. There is noacute intracranial hemorrhage or acute infarct. There is no mass effect ormidline shift. There is no abnormal parenchymal enhancement. There are nointra or extra-axial fluid collections seen. There is membrane thickening of the bilateral ethmoid air cells. There ismild membrane thickening of the right maxillary sinus and extensivemembrane thickening of the left maxillary sinus. The paranasal sinuses andmastoid air cells are otherwise clear. IMPRESSION: 6 x 6 x 6 mm pituitary microadenoma, unchanged. Stable mild white matter disease. Chronic sinusitis, this has progressed since the previous study. -------- FINAL REPORT -------- Dictated By: Yoly Lal Dictated Date: 05/17/2024 11:09 ET Assigned Physician: Yoly Lal Reviewed and Electronically Signed By: Yoly Lal Signed Date: 05/17/2024 11:37 ET Workstation ID: [id number] Transcribed By: Self Edit Transcribed Date: 05/17/2024 11:09 ET us Kate Mohan MD IM MRI PROCEDURES Final Result * Pap smear (09/28/2021) 09/28/2021 Narrative HISTORICAL TESTING LAB RESULTING AGENCY - 10/07/2021 2:16 PM EDT [id number] THINPREP PAP, IMAGED: NEGATIVE FOR SQUAMOUS INTRAEPITHELIAL LESION AND MALIGNANCY . ALBA GOMEZ(ASCP) (CASE ELECTRONICALLY SIGNED 10 07 2021) RESULT OF APTIMA HIGH RISK HPV ASSAY: HIGH RISK HPV: ??NEGATIVE (SEROTYPES 16,18,31,33,35,39,45,51,52,56,58,59,66,68) COMPLETED ON 2021-09-30 ADEQUACY: SATISFACTORY ENDOCERVICAL/TRANSFORMATION ZONE COMPONENT ABSENT. SOURCE: THINPREP PAP HPV ANY DX: ??REFLEX 16 AND 18, CERVICAL, IMAGED CLINICAL INFORMATION: HPV ANY DIAGNOSIS. 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
== END 2024-07-18 15:13 | disposition home or self-care (01) ==
PROVIDERS: Emergency Provider Emergency Medicine; PCP Internal Medicine
DX: R10.31 Right lower quadrant pain (principal); R07.89 Other chest pain; K59.00 Constipation, unspecified; K64.4 Residual hemorrhoidal skin tags; Z03.818 Encounter for observation for suspected exposure to other biological agents ruled out
CPT/HCPCS: 0241U; 36415; 74022; 80053; 81001; 85025; 99283; 99284

== ENCOUNTER → 2024-07-18 14:15 | Outpatient (BNV) | payer OTHER, SELFPAY | PROVIDERS: Emergency Provider Emergency Medicine; PCP Internal Medicine; Visit Provider Radiology Diagnostic Radiology | DX: K56.41 Fecal impaction (principal) | CPT/HCPCS: 74022 ==

== ENCOUNTER 2025-01-19 18:49 | Emergency (ER) | payer OTHER, SELFPAY ==
--- NOTE | ~2025-01-19 | XR_ITS ---
CLINICAL HISTORY: constipation 1 view abdomen Comparison: None provided Findings: Nonobstructive bowel gas pattern. Moderate colonic stool. Multiple surgical clips in left upper abdomen. No acute fractures. IMPRESSION: 1. Nonobstructive bowel gas pattern. 2. Moderate colonic stool, correlate with constipation. This document has been electronically signed by: Mely Baker MD on 01/19/2025 21:47:13
--- NOTE | ~2025-01-19 | CT_ITS ---
CLINICAL HISTORY: rectal mass CA?? hemorroid external thrombosed?? CT abdomen and pelvis with contrast Comparison: None provided Findings: There is minimal dependent atelectasis. There is a small hiatal hernia. The liver, gallbladder, pancreas, spleen, and adrenal glands are unremarkable. There is a 2 mm nonobstructing left renal stone. Kidneys are otherwise unremarkable. Patient is status post sleeve gastrectomy. The appendix is prominent measuring about 11 mm in diameter. There is faint fat stranding around the distal portion of the appendix. The remainder of the gastrointestinal tract is unremarkable. No rectal mass is identified. The aorta and IVC are normal. There are no enlarged lymph nodes. Uterus and adnexa are unremarkable. The bladder is unremarkable. IMPRESSION: 1. No rectal mass identified. A small rectal mass may not be visible on CT. 2. Prominent appendix with faint periappendiceal fat stranding. Early/mild acute appendicitis is possible. 3. 2 mm nonobstructing left renal stone. This document has been electronically signed by: Braeden Alas MD on 01/20/2025 02:33:15
[2025-01-19 19:13] VITALS: BP 130/79; PULSE 82; RESP 18; TEMP 36.5; O2SAT 96; BMI 33.7
--- NOTE | 2025-01-19 19:13 | ED.GENADULT ---
HPI - General Adult General Chief complaint: General Medical Stated complaint: thrombosed hemorrhoid Time Seen by Provider: 01/19/25 20:27 Source: patient Limitations: no limitations History of Present Illness ED Provider: Ofelia Fagan PA-C HPI narrative: 49-year-old female with known hemorrhoids, pending colorectal surgery consult, obesity, arthritis, migraine, vertigo, who presents with rectal pain and bleeding. Patient states she has external hemorrhoids that had become extremely painful, the discomfort has increased in severity over the past 2 weeks. When the patient has a bowel movement, she notices bright red blood in the toilet paper. Associated constipation, it has been difficult for the patient to have a bowel movement secondary to her pain. Denies abdominal pain, nausea vomiting fever. Related Data Home Medications ?Medication ?Instructions ?Recorded ?Confirmed multivitamin (Daily Multi-Vitamin 1 tab PO DAILY 02/01/22 01/23/24 tablet) pantoprazole 40 mg tablet,delayed 40 mg PO DAILY PRN 03/15/22 01/23/24 release Previous Rx's ?Medication ?Instructions ?Recorded cetirizine 10 mg tablet (All Day 10 mg PO DAILY PRN allergy 01/25/21 Allergy (cetirizine)) symptoms #90 tabs clotrimazole 1 % topical cream 1 appl topical BID #45 grams 03/15/22 hydrocortisone 2.5 % topical cream 1 appl OR BEDTIME PRN hemorrhoids 07/18/24 with perineal applicator #30 grams (Anusol-HC) magnesium citrate 150 ml PO DAILY PRN constipation 07/18/24 #296 mL hydrocortisone acetate 30 mg 30 mg OR BID PRN hemorrhoids #12 ea 01/20/25 rectal suppository lidocaine 5 % topical cream 1 appl topical QID PRN pain #15 01/20/25 grams Allergies Allergy/AdvReac Type Severity Reaction Status Date / Time trazodone (TRAZODONE) Allergy Intermediate OVER Verified 01/19/25 19:15 SEDATION, tachycardia Review of Systems Review of Systems: Yes all other systems are reviewed and are negative Constitutional: Constitutional: Denies fatigue and Denies fever(s) Gastrointestinal: Gastrointestinal: Denies abdominal pain, Denies bloating, Reports hematochezia, Reports constipation, Denies nausea and Denies vomiting Endocrine: Endocrine: Denies fatigue PMFSH Past Medical History Attestation statement: The following information was validated with the patient. Medical History Osteoarthritis of acromioclavicular joint Steatosis, liver History of depression History of anxiety Headache DJD (degenerative joint disease) Insomnia HELIO (obstructive sleep apnea) Asthma Surgical History Hx of cervical polypectomy S/P laparoscopic sleeve gastrectomy H/O tubal ligation Family History Family History Mother No problems noted. Father No problems noted. 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 Current occupational exposures/hazards: No Cognitive needs: No Hearing needs: No Vision needs: Yes (Glasses) Physical Exam ED Vital Signs: Vital Signs - 24 hr 01/19/25 19:13 01/19/25 20:39 01/19/25 22:18 Temperature 97.7 F 98.1 F 98 F Pulse Rate 82 72 76 Respiratory Rate 18 20 20 Blood Pressure 130/79 130/92 H 132/64 Pulse Oximetry 96 98 99 Oxygen Delivery Method Room Air Room Air Room Air 01/19/25 23:22 01/20/25 00:00 Temperature 98.7 F Pulse Rate 85 73 Respiratory Rate 20 16 Blood Pressure 152/90 H 150/77 H Pulse Oximetry 98 95 Oxygen Delivery Method Room Air Room Air BMI result Body Mass Index 33.7 Const Other: Alert Orientation/consciousness: patient oriented x3 Resp Effort & Inspection: normal respiratory effort Cardio Other: Normal peripheral perfusion GI Other: Abdomen is soft nontender, obese abdomen, multiple external hemorrhoids or thrombosed, bright red blood per rectum noted Skin Other: Warm dry no rash Neuro General: patient oriented x3, gait normal, no focal motor deficits and CN's II-XI intact bilaterally Psych Other: Cooperative Course Course Course Narrative: Rapid medical examination performed in triage by Tarah Villalobos PA-C. Patient is a 49 year old assigned female at presenting to the emergency department with rectal bleeding and pain from hemorrhoids. 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 Patient placed back in the waiting room pending room availability. Medications Administered Discontinued Medications Generic Name Dose Route Start Last Admin Trade Name Alex PRN Reason Stop Dose Admin Iohexol 85 ml 01/20/25 01:26 01/20/25 01:29 Iohexol 350 Mg/Ml 100 Ml Infus..Btl IV 01/20/25 01:27 85 ml ONCE ONE Administration Midazolam HCl 4 mg 01/19/25 22:34 01/19/25 23:23 Midazolam Hcl 2 Mg/2 Ml Vial IVPUSH 01/19/25 22:35 4 mg ONCE ONE Administration Morphine Sulfate 4 mg 01/20/25 02:36 01/20/25 02:48 Morphine Sulfate 4 Mg/Ml Cartridge IVPUSH 01/20/25 02:37 Not Given ONCE ONE Protocol Lidocaine/Epinephrine/Tetracaine 3 ml 01/19/25 20:28 01/19/25 20:40 Lidocaine/Racepinep/Tetracaine 3 Ml Gel.Pf.Oliver TOPICAL 01/19/25 20:29 3 ml ONCE ONE Administration Medical Decision Making Medical Decision Making MDM Narrative: 49-year-old female with known hemorrhoids, pending colorectal surgery consult, obesity, arthritis, migraine, vertigo, who presents with rectal pain and bleeding. Patient states she has external hemorrhoids that had become extremely painful, the discomfort has increased in severity over the past 2 weeks. When the patient has a bowel movement, she notices bright red blood in the toilet paper. Associated constipation, it has been difficult for the patient to have a bowel movement secondary to her pain. Denies abdominal pain, nausea vomiting fever. Problem: Hemorrhoids History: Per patient I have considered the following differential diagnoses: Constipation, internal hemorrhoids, external hemorrhoids, rectal mass, perirectal abscess Plan: On exam, the patient has several external hemorrhoids that are thrombosed, I attempted to I and D at bedside, it was unsuccessful, some of them appear atypical, I am also contemplating a rectal mass. We will obtain a CT scan of the abdomen and pelvis. Versed was given for pain. We will screen basic labs. Her exam was not consistent with a perirectal abscess I have independently reviewed the following tests: Labs: No leukocytosis, not anemic, no electrolyte abnormality noted CT abd: IMPRESSION: 1. No rectal mass identified. A small rectal mass may not be visible on CT. 2. Prominent appendix with faint periappendiceal fat stranding. Early/mild acute appendicitis is possible. 3. 2 mm nonobstructing left renal stone. Differential Diagnosis Differential Diagnoses: The differential diagnosis associated with the presentation includes See medical decision-making Admission/Observation Consideration of admission/observation: Escalation of care including admission/observation considered Lab Data MDM Lab Attestation statement: I reviewed the patient's lab results. 01/19/25 23:59 01/19/25 23:59 Labs: Lab Results 01/19/25 Range/Units 23:59 WBC 6.3 (4.8-10.8) X10*3/uL RBC 4.12 L (4.20-5.50) X10*6/uL Hgb 11.4 L (12.0-16.0) g/dl Hct 35.9 L (37.0-47.0) % MCV 87.1 (80.0-98.0) fL MCH 27.7 (27.0-33.0) pg MCHC 31.8 (31.0-35.0) g/dl RDW 13.8 (11.0-16.0) % Plt Count 255 (160-400) X10*3/uL MPV 11.4 (9.4-12.3) fL Immature Gran % (Auto) 0.2 (0.0-0.4) % Neut % (Auto) 58.7 (45-73) % Lymph % (Auto) 30.1 (20-40) % [place] % (Auto) 9.4 (2-11) % Eos % (Auto) 1.3 (0-4) % Baso % (Auto) 0.3 (0-2) % Lymph # (Auto) 1.9 (1.2-4.9) X10*3/uL Chester # (Auto) 0.6 (0.1-1.2) X10*3/uL Eos # (Auto) 0.1 (0.0-0.4) X10*3/uL Baso # (Auto) 0.0 (0.0-0.2) X10*3/uL Abs Immat Gran (auto) 0.01 (0.00-0.03) X10*3/uL Absolute Neuts (auto) 3.7 (2.0-8.3) x10*3/uL Absolute Nucleated RBC 0.000 (0.0-0.012) X10*3/uL Nucleated RBC % (auto) 0.0 (0.0-0.2) /100WBC Sodium 142 (135-145) mmol/L Potassium 3.7 (3.3-5.1) mmol/L Chloride 108 (96-108) mmol/L Carbon Dioxide 24 (22-29) mmol/L Anion Gap 14 (12-20) BUN 10 (9-16) mg/dL Creatinine 0.66 (0.5-1.4) mg/dL Estim Creat Clear Calc 106.1 Estimated GFR > 60 Random Glucose 97 (60-115) mg/dL Calcium 8.9 (8.4-10.2) mg/dL Radiology Impression Discussion of test interpretation with radiology: I have reviewed the radiologist's reading. Discharge Plan Discharge Clinical Impression: External hemorrhoid, thrombosed Patient Disposition: Home, Self-Care Instructions: Hemorrhoids (ED), Sitz Bath (DC) Additional Instructions: You have thrombosed hemorrhoids. See home care instructions. Use the suppositories as directed to help with the pain. Use the lidocaine cream to help with the pain use as directed. You are constipated, this will only exacerbate your hemorrhoids. You need to be on an aggressive bowel regimen. Use [id number] Colace, this is a stool softener, twice a day. You also need to use [id number] MiraLax, 3 to 4 times a day until you begin having multiple large volume bowel movements. You need to evacuate your stool burden. Once you do, stay on the Colace twice a day, you may require the MiraLax 1 to 2 times a day to help maintain regularity. Keep your pending appointment with your colorectal surgeon. Prescriptions: New hydrocortisone acetate 30 mg suppository 30 mg OR BID PRN (Reason: hemorrhoids) Qty: 12 0RF lidocaine 5 % cream 1 appl topical QID PRN (Reason: pain) Qty: 15 0RF No Action hydrocortisone [Anusol-HC] 2.5 % cream with perineal applicator 1 appl OR BEDTIME PRN (Reason: hemorrhoids) Qty: 30 0RF magnesium citrate Solution 150 ml PO DAILY PRN (Reason: constipation) Qty: 296 0RF cetirizine [All Day Allergy (cetirizine)] 10 mg tablet 10 mg PO DAILY PRN (Reason: allergy symptoms) Qty: 90 1RF multivitamin [Daily Multi-Vitamin] Tablet 1 tab PO DAILY pantoprazole 40 mg tablet,delayed release (DR/EC) 40 mg PO DAILY PRN clotrimazole 1 % cream 1 appl topical BID Qty: 45 3RF Stand Alone Forms: Work/School Release Print Language: Portuguese
--- OUTSIDE RECORDS SUMMARY | 2025-01-19 19:51 | XMS_ITS | Clinical Summary ---
Author Organization Patient Business Ser [facility] Address [address] [place] [address] Care Team Providers Care Sole Layer Name Role Phone Wendy Silva MD Primary Care Provider [phone] Allergies No known active allergies Medications No known medications Surgical History Surgery Date Site/Laterality Comments GASTRIC BYPASS 08/2021 PROCEDURE: OK GASTRIC RSTCV W/BYP W/SM INT RCNSTJ LIMIT [...] Date Smoking Tobacco: Never Smokeless Tobacco: Never Tobacco Cessation:Counseling Given: Not Answered Alcohol Use Standard Drinks/Week Comments Not Currently [...] Sign Reading Time Taken Comments Blood Pressure 124/82 08/12/2024 11:23 AM EDT Pulse 76 08/12/2024 11:23 AM EDT Temperature 35.6 C (96.1 F) 08/12/2024 11:23 AM EDT Respiratory Rate - - Oxygen Saturation 98% 08/12/2024 11:23 AM EDT Inhaled Oxygen Concentration - - Weight 87.5 kg (193 lb) 08/22/2024 9:58 AM EDT Height 160 cm (5' 3 ) 08/12/2024 11:23 AM EDT Body Mass Index 34.19 08/12/2024 11:23 AM EDT Plan of Treatment Health Maintenance Due Date Last Done Comments Colorectal Cancer Screening: Colonoscopy 1974 DTaP,Tdap,and Td Vaccines (1 - Tdap) 1993 Hepatitis B Vaccines (1 of 3 - 19+ 3-dose series) 1993 HIV Screening 12/21/2021 Hepatitis C Screening 12/21/2021 Social Influencers of Health Screening 12/21/2021 Depression Screening 04/10/2024 Pneumococcal Vaccine: 50+ Years (1 of 1 - PCV) 2024 Zoster Vaccines (1 of 2) 2024 Cervical Cancer Screening: P ap Smear 09/28/2024 09/28/2021 COVID-19 Vaccine (3 - 2024-2 6 season) 2024 11/02/2020, 09/26/2020 Influenza Vaccine (#1) 2024 5, 02/19/2014 Breast Cancer Screening 05/17/2026 05/17/19 25, 05/03/2023, 04/28/2022 RSV Immunization Adult Patients (1 - 1-dose 75+ series) 2049 HIB Vaccines Aged Out No longer eligi [...] screening mammogram for malignant neoplasm of breast PAP SMEAR Routine 09/28/2021 from Last 3 Months or Most Recently Relevant to Health Maintenance Results * [facility] Mammo Digital Screening bilat (05/17/2024 11:36 AM EST) Anatomical Region Laterality Modality Breast Bilateral Mammography 05/17/2024 1:19 PM EST Impressions 05/17/2024 1:37 PM EST No mammographic evidence for malignancy. BI-RADS CATEGORY: 1 - NEGATIVE RECOMMENDATION: Screening bilateral mammogram is recommended in 1 year. Mammo Location: [facility], [address] [place] [address], [facility], . -------- FINAL REPORT -------- Dictated By: Latosha Montana Dictated Date: 05/17/2024 13:19 ET Assigned Physician: Latosha Montana Reviewed and Electronically Signed By: Laotsha Montana Signed Date: 05/17/2024 13:37 ET Workstation ID: [id number] Transcribed By: Self Edit Transcribed Date: 05/17/2024 [...] evidence of suspicious mass or architectural distortion. No worrisome calcifications are evident. There has been no significant change from prior exam(s). BREAST DENSITY: C - [...] is recommended in 1 year. Mammo Location: [facility], [address] [place] [address], [id number], . -------- FINAL REPORT -------- Dictated By: Latosha Montana Dictated Date: 05/17/2024 13:19 ET Assigned Physician: Latosha Montana Reviewed and Electronically Signed By: Latosha Montana Signed Date: 05/17/2024 13:37 ET Workstation ID: [id number] Transcribed By: Self Edit Transcribed Date: 05/17/2024 13:19 ET us Wendy Silva MD IMG BI PROCEDURES Final Result * Pap smear (09/28/2021) 09/28/2021 Narrative HISTORICAL TESTING LAB RESULTING AGENCY - 10/07/2021 2:16 PM EDT [id number] THINPREP PAP, IMAGED: NEGATIVE FOR SQUAMOUS INTRAEPITHELIAL LESION AND MALIGNANCY . ALBA GOMEZ(ASCP) (CASE ELECTRONICALLY SIGNED 10 07 2021) RESULT OF APTIMA HIGH RISK HPV ASSAY: HIGH RISK HPV: NEGATIVE (SEROTYPES 16,18,31,33,35,39,45,51,52,56,58,59,66,68) COMPLETED ON 2021-09-30 ADEQUACY: SATISFACTORY ENDOCERVICAL/TRANSFORMATION ZONE COMPONENT ABSENT. SOURCE: THINPREP PAP HPV ANY DX: REFLEX 16 AND 18, CERVICAL, IMAGED CLINICAL INFORMATION: HPV ANY DIAGNOSIS. MENOPAUSE [Z12.4, Z01.419] us Herb Thomas DO LAB CYTOLOGY ORDERABLES Final Result HISTORICAL TESTING LAB RESULTING AGENCY from Last 3 Months or Most Recently Relevant to Health Maintenance [place] [address] [place] [address] [employer] Care Teams Sole Layer Relationship Specialty Start Date End Date Wendy Silva MD [address] [place] [address] , [address] [facility]ician [facility]A: [facility] KIANNA Mckinney PCP - General 02/14/23
[2025-01-19 20:39] VITALS: BP 130/92; PULSE 72; RESP 20; TEMP 36.7; O2SAT 98
[2025-01-19] MEDS: Lidocaine/Racepinep/Tetracaine 3 ML GEL.PF.APP TOPICAL (20:40)
[2025-01-19 22:18] VITALS: BP 132/64; PULSE 76; RESP 20; TEMP 36.6; O2SAT 99
[2025-01-19 23:22] VITALS: BP 152/90; PULSE 85; RESP 20; O2SAT 98
[2025-01-20] VITALS: BP 150/77; PULSE 73; RESP 16; TEMP 37.1; O2SAT 95
[2025-01-20 00:13] LABS: MANUAL DIFF FLAG NO
[2025-01-20 00:15] LABS: Hematocrit 35.9 % (37.0-47.0); Hemoglobin 11.4 g/dl (12.0-16.0); Imm Gran Abs Auto 0.01 X10*3/uL (0.00-0.03); Imm Gran Pct Auto 0.2 % (0.0-0.4); Lymphocytes Absolute Auto 1.9 X10*3/uL (1.2-4.9); Mean Corpuscular HGB Conc 31.8 g/dl (31.0-35.0); Mean Corpuscular Hemoglobin 27.7 pg (27.0-33.0); Mean Corpuscular Volume 87.1 fL (80.0-98.0); NRBC Abs Auto 0.000 X10*3/uL (0.0-0.012); NRBC Pct Auto 0.0 /100WBC (0.0-0.2); Platelet Count 255 X10*3/uL (160-400); Red Blood Count 4.12 X10*6/uL (4.20-5.50); White Blood Count 6.3 X10*3/uL (4.8-10.8)
[2025-01-20 00:34] LABS: Anion Gap 14 (12-20); Blood Urea Nitrogen 10 mg/dL (9-16); Calcium 8.9 mg/dL (8.4-10.2); Carbon Dioxide 24 mmol/L (22-29); Chloride 108 mmol/L (96-108); Creatinine Clr Calc Pharmacy 106.1; Estimated Glomerular Filt Rate > 60; Potassium 3.7 mmol/L (3.3-5.1); Sodium 142 mmol/L (135-145)
[2025-01-20] MEDS: iohexoL 350 MG/ML 100 ML INFUS..BTL 85 ML IV (01:29)
--- NOTE | 2025-01-20 03:00 | PC.NURSE ---
Pt resting in bed, reports mild pain, mostly describes it as discomfort. Pt does not want pain medication at this time.
[2025-01-20 04:19] VITALS: BP 138/97; PULSE 74; RESP 16; TEMP 36.8; O2SAT 96
== END 2025-01-20 04:20 | disposition home or self-care (01) ==
PROVIDERS: Physician Assistant Medical; Emergency Provider Emergency Medicine; PCP Internal Medicine
DX: K64.5 Perianal venous thrombosis (principal); K62.89 Other specified diseases of anus and rectum; K62.5 Hemorrhage of anus and rectum
CPT/HCPCS: 36415; 74018; 74177; 80048; 85025; 96374; 99284; 99285; J2250; Q9967

== ENCOUNTER → 2025-01-19 20:38 | Outpatient (BNV) | payer OTHER, SELFPAY | PROVIDERS: Emergency Provider Emergency Medicine; PCP Internal Medicine; Visit Provider Specialist | DX: K59.00 Constipation, unspecified (principal) | CPT/HCPCS: 74018 ==

== ENCOUNTER → 2025-01-20 00:26 | Outpatient (BNV) | payer OTHER, SELFPAY | PROVIDERS: Emergency Provider Emergency Medicine; PCP Internal Medicine; Visit Provider Radiology Diagnostic Radiology | DX: N20.0 Calculus of kidney (principal) | CPT/HCPCS: 74177 ==